=== PATIENT | female | born 1980 | race American Indian/Alaskan Native ===

== ENCOUNTER 2016-09-30 19:52 | Inpatient (IN) | payer OTHER ==
[2016-09-30] MEDS ORDERED: D50W (25GM) IV PRN (20:23)
[2016-09-30] MEDS ORDERED: DULCOLAX PR PRN (20:23)
[2016-09-30] MEDS ORDERED: SENOKOT PO PRN (20:23)
[2016-09-30] MEDS: ZOCOR PO SCH (22:00)
[2016-09-30] MEDS: NOVOLOG SUB-Q SCH (22:15)
[2016-09-30] MEDS: CATAPRES PO SCH (23:52)
[2016-09-30] MEDS: KEPPRA PO SCH (23:53)
[2016-09-30] MEDS: ULTRAM PO PRN (23:54)
[2016-10-01] MEDS: HEPARIN SUB-Q SCH ×4 (00:17→23:12)
[2016-10-01 05:49] LABS: Basophils % (Auto) 1.3 % (0.0-1.8); Eosinophils % (Auto) 12.7 % (0.0-4.3); Hematocrit 25.2 % (30.3-42.9); Hemoglobin 7.6 gm/dl (10.1-14.3); Mean Corpuscular HGB Conc 30 % (30-34); Mean Corpuscular Volume 86 fl (79-97); Platelet Count 327 K/mm3 (140-440); Red Blood Count 2.92 M/mm3 (3.65-5.03); Red Cell Distribution Width 16.5 % (13.2-15.2)
[2016-10-01 05:51] LABS: Mean Corpuscular Hemoglobin 26 pg (28-32)
[2016-10-01 06:13] LABS: Alanine Aminotransferase < 5 units/L (7-56); Albumin 2.6 g/dL (3.9-5); Albumin/Globulin Ratio 0.6 %; Alkaline Phosphatase 110 units/L (35-129); Anion Gap 19 mmol/L; BUN/Creatinine Ratio 5.85; Bilirubin,Total < 0.20 mg/dL (0.1-1.2); Blood Urea Nitrogen 24 mg/dL (7-17); Calcium 8.6 mg/dL (8.4-10.2); Carbon Dioxide 27 mmol/L (22-30); Chloride 94.3 mmol/L (98-107); Glucose 92 mg/dL (65-100); Sodium 136 mmol/L (137-145); Total Protein 6.8 g/dL (6.3-8.2)
[2016-10-01] MEDS: NYSTOP TP SCH ×2 (08:00→22:05)
[2016-10-01] MEDS: BUTT PASTE/LIDOCAINE TP SCH ×2 (08:00→18:39)
[2016-10-01] MEDS: KEPPRA PO SCH ×2 (08:28→23:10)
[2016-10-01] MEDS: ASPIRIN PO SCH (08:28)
[2016-10-01] MEDS: CATAPRES PO SCH ×3 (08:30→23:16)
[2016-10-01] MEDS: PEPCID PO SCH (08:32)
[2016-10-01] MEDS: NOVOLOG SUB-Q SCH ×3 (08:39→17:18)
[2016-10-01] MEDS: ULTRAM PO PRN (08:47)
--- NOTE | 2016-10-01 11:45 | Consultation ---
History of Present Illness - Reason for Consult Consult date: 10/01/16 - History of Present Illness pt was seen and examined--consult dictated Medications and Allergies Allergies Allergy/AdvReac Type Severity Reaction Status Date / Time No Known Allergies Allergy Verified 09/05/16 20:32 Home Medications Medication Instructions Recorded Confirmed Last Taken Type Enoxaparin [Lovenox] 30 mg SQ QDAY 30 Days 09/24/16 09/30/16 Unknown Rx Famotidine [Pepcid] 20 mg PO QDAY tablet 09/24/16 09/30/16 Unknown Rx HYDROcodone/APAP 5-325 [Jet 1 each PO Q6HR PRN #20 tablet 09/24/16 09/30/16 Unknown Rx 5/325] Insulin NPH/Regular [NovoLIN 70/30] 28 unit SUB-Q BIDDIAB units 09/24/16 Unknown Rx QUEtiapine [SEROquel] 50 mg PO BID tablet 09/24/16 09/30/16 Unknown Rx Scopolamine [Transderm-Scop] 1 each TD Q3D patch 09/24/16 09/30/16 Unknown Rx cloNIDine [Catapres] 0.3 mg PO Q8HR tablet 09/24/16 09/30/16 Unknown Rx levETIRAcetam [Keppra TAB] 500 mg PO BID #60 tablet 09/24/16 09/30/16 Unknown Rx Active Meds: Active Medications Acetaminophen (Tylenol) 650 mg PO Q4H PRN PRN Reason: Pain MILD(1-3)/Fever >100.5/RG Aspirin (Aspirin) 325 mg PO QDAY [facility] Last Admin: 10/01/16 08:28 Dose: 325 mg Bisacodyl (Dulcolax) 10 mg VT QDAY PRN PRN Reason: Constipation unrelieved by MOM Clonidine HCl (Catapres) 0.3 mg PO Q8HR [facility] Last Admin: 10/01/16 08:30 Dose: 0.3 mg Dextrose (D50w (25gm)) 50 ml IV PRN PRN PRN Reason: Hypoglycemia Famotidine (Pepcid) 20 mg PO QDAY [facility] Last Admin: 10/01/16 08:32 Dose: 20 mg Heparin Sodium (Porcine) (Heparin) 5,000 unit SUB-Q Q12HR [facility] Last Admin: 10/01/16 10:00 Dose: Not Given Insulin Aspart (Novolog) 0 units SUB-Q ACHS [facility] PRN Reason: Protocol Last Admin: 10/01/16 08:39 Dose: Not Given Insulin Human Isoph/Insulin Regular (Novolin 70/30) 20 unit SUB-Q BIDDIAB [facility] Last Admin: 10/01/16 08:34 Dose: 20 unit Levetiracetam (Keppra) 750 mg PO BID [facility] Last Admin: 10/01/16 08:28 Dose: 750 mg Lidocaine HCl (Butt Paste/Lidocaine) 1 applic TP TID [facility] Last Admin: 10/01/16 08:00 Dose: Not Given Nystatin (Nystop) 1 applic TP BID [facility] Last Admin: 10/01/16 08:00 Dose: Not Given Quetiapine Fumarate (Seroquel) 50 mg PO BID [facility] Last Admin: 10/01/16 08:47 Dose: 50 mg Scopolamine (Transderm-Scop) 1 each TD Q3D [facility] Senna (Senokot) 8.6 mg PO Q12H PRN PRN Reason: Laxative Effect Simvastatin (Zocor) 40 mg PO QHS [facility] Last Admin: 09/30/16 22:00 Dose: 40 mg Tramadol HCl (Ultram) 50 mg PO Q6H PRN PRN Reason: Pain, Moderate (4-6) Last Admin: 10/01/16 08:47 Dose: 50 mg Exam - Constitutional Vitals: Temp Pulse Resp BP Pulse Ox 98.8 F 85 18 128/69 100 10/01/16 08:00 10/01/16 08:30 10/01/16 08:00 10/01/16 08:30 10/01/16 10:00 Results - Labs CBC & Chem 7: 10/01/16 05:15 10/01/16 05:15 Labs: Abnormal lab results 09/30/16 10/01/16 10/01/16 Range/Units 21:10 05:15 05:15 RBC 2.92 L (3.65-5.03) M/mm3 Hgb 7.6 L (10.1-14.3) gm/dl Hct 25.2 L (30.3-42.9) % MCH 26 L (28-32) pg RDW 16.5 H (13.2-15.2) % Lymph % (Auto) 12.6 L (13.4-35.0) % [place] % (Auto) 13.4 H (0.0-7.3) % Eos % (Auto) 12.7 H (0.0-4.3) % [place] # 1.5 H (0.0-0.8) K/mm3 Eos # 1.4 H (0.0-0.4) K/mm3 Sodium 136 L (137-145) mmol/L Chloride 94.3 L (98-107) mmol/L BUN 24 H (7-17) mg/dL Creatinine 4.1 H (0.7-1.2) mg/dL POC Glucose 168 H (70-105) ALT < 5 L (7-56) units/L Albumin 2.6 L (3.9-5) g/dL
--- NOTE | 2016-10-01 12:21 | History and Physical Report ---
History of Present Illness Date: 10/01/16 Referring Facility: [facility] Date of admission: 09/30/16 19:52 Chief Complaint: NTSCI, thoracic cord infarction History of present illness: POST ADMISSION PHYSICIAN EVALUATION ONSET DATE: 09/05/2016 IMPAIRMENT GROUP CODE: 04.112 ETIOLOGIC DIAGNOSIS: NTSCI, thoracic cord infarction STATUS CHANGES SINCE PREADMISSION SCREENING: PAS has been reviewed. In comparison, rectal tube has been removed; will need aggressive bowel program. Pt noted to be drowsy during exam; not on seroquel at home, will wean to off as tolerated. Pt is sitting up in chair and denies any difficulties with initiating therapies. Pt remains with BLE paralysis; continues to be an appropriate candidate for IPR admission. PREVIOUS FUNCTIONAL STATUS: Independent with ADLs, gait, transfers CURRENT FUNCTIONAL STATUS: Supervision for Eating and grooming; modA for UB Dressing; max-totalA for remaining ADLs; HPI 36 y.o. female who presented to [facility] secondary to intractable status epilepticus ; intubated in ED for airway protection (later extubated on 09/15). Acute care course immediately complicated by acute metabolic encephalopathy, GN bacteremia , +E.Faecalis in urine; hypokalemia; left arm cellulitis. Pt later reported acute onset of BLE numbness and paralysis. MRI thoracic and lumbar spine noted to be negative. Repeat Brain MRI on 09/22 showed acute CVA at anterior corpus callosum and left parietal periventricular white matter; also with subacute bilateral parietal lobe infarcts. Pt seen/evaluated by Neurology; likely that acute infarcts and potential thoracic cord infarction due to hypotension, started on IV steroids with no improvement. ECHO obtained during CVA work-up revealed mobile vegetation on permacath wire in right atrium; replaced/resolved on 09/29. Pt continued with paraplegia; now admitted to IRU for aggressive therapies and ongoing medical management. Past History Past Medical History: diabetes, ESRD (recently initiated on HD ), GERD, hypertension, seizures Past Surgical History: Other (dialysis access) Social history: single, other (lives with 8 y.o. daugther; parents present). denies: smoking, alcohol abuse Family history: diabetes, hypertension, stroke Medications and Allergies Allergies Allergy/AdvReac Type Severity Reaction Status Date / Time No Known Allergies Allergy Verified 09/05/16 20:32 Home Medications Medication Instructions Recorded Confirmed Last Taken Type Enoxaparin [Lovenox] 30 mg SQ QDAY 30 Days 09/24/16 09/30/16 Unknown Rx Famotidine [Pepcid] 20 mg PO QDAY tablet 09/24/16 09/30/16 Unknown Rx HYDROcodone/APAP 5-325 [Page 1 each PO Q6HR PRN #20 tablet 09/24/16 09/30/16 Unknown Rx 5/325] Insulin NPH/Regular [NovoLIN 70/30] 28 unit SUB-Q BIDDIAB units 09/24/16 Unknown Rx QUEtiapine [SEROquel] 50 mg PO BID tablet 09/24/16 09/30/16 Unknown Rx Scopolamine [Transderm-Scop] 1 each TD Q3D patch 09/24/16 09/30/16 Unknown Rx cloNIDine [Catapres] 0.3 mg PO Q8HR tablet 09/24/16 09/30/16 Unknown Rx levETIRAcetam [Keppra TAB] 500 mg PO BID #60 tablet 09/24/16 09/30/16 Unknown Rx Active Meds: Active Medications Acetaminophen (Tylenol) 650 mg PO Q4H PRN PRN Reason: Pain MILD(1-3)/Fever >100.5/RG Aspirin (Aspirin) 325 mg PO QDAY [facility] Last Admin: 10/01/16 08:28 Dose: 325 mg Bisacodyl (Dulcolax) 10 mg [place] QDAY PRN PRN Reason: Constipation unrelieved by MOM Clonidine HCl (Catapres) 0.3 mg PO Q8HR [facility] Last Admin: 10/01/16 08:30 Dose: 0.3 mg Dextrose (D50w (25gm)) 50 ml IV PRN PRN PRN Reason: Hypoglycemia Famotidine (Pepcid) 20 mg PO QDAY [facility] Last Admin: 10/01/16 08:32 Dose: 20 mg Heparin Sodium (Porcine) (Heparin) 5,000 unit SUB-Q Q12HR [facility] Last Admin: 10/01/16 10:00 Dose: Not Given Insulin Aspart (Novolog) 0 units SUB-Q ACHS [facility] PRN Reason: Protocol Last Admin: 10/01/16 08:39 Dose: Not Given Insulin Human Isoph/Insulin Regular (Novolin 70/30) 20 unit SUB-Q BIDDIAB [facility] Last Admin: 10/01/16 08:34 Dose: 20 unit Levetiracetam (Keppra) 750 mg PO BID [facility] Last Admin: 10/01/16 08:28 Dose: 750 mg Lidocaine HCl (Butt Paste/Lidocaine) 1 applic TP TID [facility] Last Admin: 10/01/16 08:00 Dose: Not Given Nystatin (Nystop) 1 applic TP BID [facility] Last Admin: 10/01/16 08:00 Dose: Not Given Quetiapine Fumarate (Seroquel) 50 mg PO BID [facility] Last Admin: 10/01/16 08:47 Dose: 50 mg Scopolamine (Transderm-Scop) 1 each TD Q3D [facility] Senna (Senokot) 8.6 mg PO Q12H PRN PRN Reason: Laxative Effect Simvastatin (Zocor) 40 mg PO QHS [facility] Last Admin: 09/30/16 22:00 Dose: 40 mg Tramadol HCl (Ultram) 50 mg PO Q6H PRN PRN Reason: Pain, Moderate (4-6) Last Admin: 10/01/16 08:47 Dose: 50 mg Review of Systems All systems: negative Ears, nose, mouth and throat: no headache Cardiovascular: no chest pain, no lightheadedness Respiratory: no cough Gastrointestinal: no nausea, no vomiting Neurological: weakness Psychiatric: sleep disturbances Exam - Constitutional Vitals: Vital Signs - 12hr 10/01/16 10/01/16 10/01/16 08:00 08:30 10:00 Temperature 98.8 F Pulse Rate 85 Pulse Rate [ 85 Left Brachial] Respiratory 18 Rate Blood Pressure 128/69 Blood Pressure 128/69 [Left Arm] O2 Sat by Pulse 100 100 Oximetry General appearance: no acute distress, other (sitting up in ) - EENT Eyes: EOM intact ENT: hearing intact - Neck Neck: supple, normal ROM - Respiratory Respiratory effort: normal Respiratory: bilateral: CTA - Cardiovascular Rhythm: regular Heart Sounds: Present: S1 & S2 - Extremities Extremities: No edema - Gastrointestinal General gastrointestinal: Present: soft, non-tender, non-distended, normal bowel sounds - Integumentary Integumentary: Present: clear - Musculoskeletal Musculoskeletal: other (4/5 BUE; no movement at BLE) - Neurologic Neurologic: CNII-XII intact, other (no sensation below T4) - Psychiatric Psychiatric: appropriate mood/affect, intact judgment & insight, memory intact, cooperative - Labs CBC & Chem 7: 10/01/16 05:15 10/01/16 05:15 Labs: Laboratory Results - last 72 hr 09/30/16 10/01/16 10/01/16 21:10 05:15 05:15 WBC 11.0 RBC 2.92 L Hgb 7.6 L Hct 25.2 L MCV 86 MCH 26 L MCHC 30 RDW 16.5 H Plt Count 327 Lymph % (Auto) 12.6 L [place] % (Auto) 13.4 H Eos % (Auto) 12.7 H Baso % (Auto) 1.3 Lymph # 1.4 [place] # 1.5 H Eos # 1.4 H Baso # 0.1 Seg Neutrophils % 60.0 Seg Neutrophils # 6.6 Sodium 136 L Potassium 4.0 Chloride 94.3 L Carbon Dioxide 27 Anion Gap 19 BUN 24 H Creatinine 4.1 H Estimated GFR 15 BUN/Creatinine Ratio 5.85 Glucose 92 POC Glucose 168 H Calcium 8.6 Total Bilirubin < 0.20 AST 12 ALT < 5 L Alkaline Phosphatase 110 Total Protein 6.8 Albumin 2.6 L Albumin/Globulin Ratio 0.6 10/01/16 06:26 WBC RBC Hgb Hct MCV MCH MCHC RDW Plt Count Lymph % (Auto) [place] % (Auto) Eos % (Auto) Baso % (Auto) Lymph # [place] # Eos # Baso # Seg Neutrophils % Seg Neutrophils # Sodium Potassium Chloride Carbon Dioxide Anion Gap BUN Creatinine Estimated GFR BUN/Creatinine Ratio Glucose POC Glucose 85 Calcium Total Bilirubin AST ALT Alkaline Phosphatase Total Protein Albumin Albumin/Globulin Ratio Assessment and Plan Assessment and plan: 36 y.o. female s/p intractable status epilepticus on presentation. Course complicated by acute respiratory failure requiring intubation, acute metabolic encephalopathy, GN bacteremia, +E.Faecalis in urine, hypokalemia, left arm cellulitis. Pt later noted to have acute onset of BLE numbness and paralysis, thought to be secondary to thoracic cord infarction; acute CVA at anterior corpus callosum and left parietal periventricular white matter; subacute bilateral parietal lobe infarcts; mobile vegetation on permacath wire in right atrium; permacath replaced/resolved on 09/29. The patient is currently medically stable, however, requires ongoing medical management. Pt is appropriate for inpatient rehabilitation admission and is thought to be able to tolerate at least 3 hours of therapy a day, 5 days a week including 1 hour of physical therapy, 1 hour of occupational therapy, and 1 hour of speech therapy. Patient is able to understand and follow basic directions and has attainable rehab goals. Potential barriers/complications include falls, sacral decubitus, DVT, PE, autonomic dysreflexia, UTI, extension/recurrent CVA, recurrent seizures, contractures, hypotension, hypoglycemia. Plan 1. Rehabilitation- Pt will undergo multidisciplinary/integrative rehab PT/OT/ VAT CLEANER, Nursing. Areas to be addressed include, but are not limited to PT for strengthening, transfer training, ROM, endurance, balance; OT for ADLs, household tasks, adaptive equipment; VAT CLEANER for cognitive evaluation; Nursing for carryover of therapies, pain control, education, skin integrity, medication management, bowel/bladder management; Nutrition as needed; director dental services for discharge planning and equipment needs. Potential interventions include appropriate assistive device or adaptive equipment. Expected overall level of functional improvement by discharge is Memo to CGA for ADLs at wheelchair level ; Memo for sliding board transfers and wheelchair mobility. Pt will tentatively be discharged home with outpatient PT/OT. Estimated length of stay is 2-3 weeks. 2. thoracic cord infarction- will need close monitoring and management of bowel /bladder; bladder scans Q6hr, straight cath for >350cc; likely will require dulcolax suppositories QOD; Q2 hour toileting while awake; pressure relief; Q2 hour turning schedule when in bed 3. acute CVA at anterior corpus callosum and left parietal periventricular white matter; subacute bilateral parietal lobe infarcts- ASA and statin 4. seizure disorder- continue keppra; seizure precautions 5. HTN- low BP noted; reduce clonidine to 0.2mg; follow 6. DM- continue current regimen; previously on 40U 70/30, reduced to 20U; follow and adjust as needed 7. ESRD- on HD, MWF; Nephrology following 8. Anemia secondary to ESRD- follow 9. DVT px- heparin - Patient Problems (1) Spinal cord infarction Current Visit: No Status: Acute (2) CVA (cerebral vascular accident) Current Visit: Yes Status: Acute Qualifiers: Precerebral and cerebral artery: P Laterality of affected vessel: L (3) Seizure Current Visit: No Status: Acute (4) Diabetes Current Visit: Yes Status: Acute Qualifiers: Diabetes mellitus type: type 2 Diabetes mellitus complication status: with hyperglycemia Diabetes mellitus complication detail: D Diabetic retinopathy severity: D Proliferative retinopathy type: P Diabetes mellitus macular edema: D Diabetes mellitus fdc insulin use: with fdc use Laterality: L Chronic kidney disease stage: C Qualified Code(s): E11.65 - Type 2 diabetes mellitus with hyperglycemia; Z79.4 - long-term (current) use of insulin (5) HTN (hypertension) Current Visit: No Status: Acute Qualifiers: Hypertension type: essential hypertension Qualified Code(s): I10 - Essential (primary) hypertension (6) ESRD on hemodialysis Current Visit: No Status: Acute (7) Anemia in ESRD (end-stage renal disease) Current Visit: No Status: Chronic
[2016-10-01] MEDS: ZOCOR PO SCH (23:11)
[2016-10-01] MEDS: TRANSDERM-SCOP TD SCH (23:12)
[2016-10-02] MEDS: NOVOLOG SUB-Q SCH ×5 (01:27→20:50)
[2016-10-02] MEDS: CATAPRES PO SCH ×4 (06:27→22:15)
[2016-10-02] MEDS: BUTT PASTE/LIDOCAINE TP SCH ×4 (06:29→20:59)
[2016-10-02] MEDS: NYSTOP TP SCH ×3 (07:15→20:59)
[2016-10-02] MEDS: ASPIRIN PO SCH (08:34)
[2016-10-02] MEDS: TYLENOL PO PRN (08:36)
[2016-10-02] MEDS: PEPCID PO SCH (08:38)
[2016-10-02] MEDS: KEPPRA PO SCH ×3 (08:38→22:15)
--- NOTE | 2016-10-02 09:56 | Consultation ---
RENAL CONSULT REASON FOR CONSULTATION: Renal failure. HISTORY OF PRESENT ILLNESS: This 36-year-old -[place] female with end-stage renal disease, hypertension, diabetes, was admitted to the Rehab Unit. The patient gets hemodialysis on Wednesday, Wednesday, and Wednesday via right side of the neck tunneled catheter. The patient was recently admitted to [facility] with diabetic ketoacidosis with altered mental status and seizure on 09/05/2016. She was orally intubated on ventilator. Hospital records were reviewed. On 09/29/2016 the patient had exchange of tunneled dialysis right internal jugular venous catheter by Dr. Hanson. PAST MEDICAL HISTORY: Hypertension, end-stage renal disease, insulin-dependent diabetes. PERSONAL HISTORY: Denies smoking, alcohol, or drug abuse. FAMILY HISTORY: No family history of kidney failure. ALLERGIES: No known allergies. MEDICATIONS: Aspirin 325 mg once a day, insulin, Keppra 750 mg twice a day, Seroquel 25 mg p.o. b.i.d., Zocor 40 mg once a day, tramadol p.r.n. REVIEW OF SYSTEMS: The patient denies headache or dizziness. Denies chest pain or shortness of breath. Denies abdomen pain, nausea, or vomiting. Appetite is getting better. Denies GI bleeding. Denies swelling of the legs. Other review of systems negative. PHYSICAL EXAMINATION: GENERAL: The patient is alert and oriented. VITAL SIGNS: Blood pressure 128/69, pulse 100, afebrile. Lips noncyanotic. NECK: No JVD. No thyroid enlargement. LUNGS: Diminished breath sounds in bases. HEART: S1, S2 regular. No pericardial rub. 2/6 systolic murmur along the left sternal border. ABDOMEN: Soft, bowel sounds present, nontender. No liver or spleen palpable. EXTREMITIES: 1+ edema. The patient has right internal jugular tunneled catheter in place. LABORATORY DATA: WBC 11.0, hemoglobin 7.6, hematocrit 25.2, platelets 327. Sodium 136, potassium 4.0, chloride 94, CO2 of 27, BUN 24, creatinine 4.1, glucose 85, albumin 2.6. ASSESSMENT AND PLAN: 1. End-stage renal disease. The patient to get hemodialysis on Wednesday, Wednesday, and Wednesday. 2. Anemia in end-stage renal disease, maintained on Epogen, consider packed RBC if hemoglobin drops further, check iron studies and give Venofer as per protocol. 3. Hypoalbuminemia, encouraged to increase dietary protein intake and take protein supplements. 4. Hypertension. 5. Diabetes, status post DKA. 6. History of seizure disorder, on Keppra. Thank you for the consultation. JOB# [id number] K/NTS
--- NOTE | 2016-10-02 10:07 | Progress Note ---
Assessment and Plan 36 y.o. female s/p intractable status epilepticus on presentation. Course complicated by acute respiratory failure requiring intubation, acute metabolic encephalopathy, GN bacteremia, +E.Faecalis in urine, hypokalemia, left arm cellulitis. Pt later noted to have acute onset of BLE numbness and paralysis, thought to be secondary to thoracic cord infarction; acute CVA at anterior corpus callosum and left parietal periventricular white matter; subacute bilateral parietal lobe infarcts; mobile vegetation on permacath wire in right atrium; permacath replaced/resolved on 09/29 - thoracic cord infarction- bowel/bladder management; bladder scans Q4hr, straight cath for >350cc; dulcolax suppositories QHS; Q2 hour toileting while awake; pressure relief; Q2 hour turning schedule when in bed; float heels when in bed - possible UTI- F/U urine culture; started on levaquin Q48hr - acute CVA at anterior corpus callosum and left parietal periventricular white matter; subacute bilateral parietal lobe infarcts- ASA, statin - seizure disorder- keppra; seizure precautions - HTN- follow and reduce clonidine as needed - DM- continue 70/30 at 20U BID; follow and adjust as needed - ESRD- on HD, MWF; Nephrology following - DVT px- heparin - Patient Problems (1) Spinal cord infarction Current Visit: No Status: Acute (2) CVA (cerebral vascular accident) Current Visit: Yes Status: Acute Qualifiers: CVA mechanism: C Precerebral and cerebral artery: P Laterality of affected vessel: L (3) Seizure Current Visit: No Status: Acute (4) Diabetes Current Visit: Yes Status: Acute Qualifiers: Diabetes mellitus type: type 2 Diabetes mellitus complication status: with hyperglycemia Diabetes mellitus complication detail: D Diabetic retinopathy severity: D Proliferative retinopathy type: P Diabetes mellitus macular edema: D Diabetes mellitus prison insulin use: with prison use Laterality: L Chronic kidney disease stage: C Qualified Code(s): E11.65 - Type 2 diabetes mellitus with hyperglycemia; Z79.4 - terminal press operator (current) use of insulin (5) HTN (hypertension) Current Visit: No Status: Acute Qualifiers: Hypertension type: essential hypertension Qualified Code(s): I10 - Essential (primary) hypertension (6) ESRD on hemodialysis Current Visit: No Status: Acute Subjective Date of service: 10/02/16 Principal diagnosis: thoracic cord infarction Interval history: Pt seen in room this AM, F/U IPR course, s/p thoracic cord infarction and acute CVAs. Pt without any complaints on this AM. However, noted to have a fever of 100.2 Objective - Constitutional Vitals: Vital Signs - 12hr 10/01/16 10/02/16 10/02/16 23:16 06:27 07:30 Temperature 100.2 F H Pulse Rate 82 101 H Pulse Rate [ 95 H Left Brachial] Respiratory 20 Rate Blood Pressure 123/68 115/64 Blood Pressure 121/67 [Left Arm] O2 Sat by Pulse 99 Oximetry General appearance: Present: no acute distress, obese - EENT Eyes: EOM intact ENT: hearing intact - Neck Neck: supple, normal ROM - Respiratory Respiratory effort: normal Respiratory: bilateral: CTA - Cardiovascular Rhythm: regular Heart Sounds: Present: S1 & S2 Extremities: No edema Extremity abnormal: other (PROM performed at [facility]; no spasticity/tone noted; no active movement in [facility]) - Gastrointestinal General gastrointestinal: Present: soft, non-tender, non-distended, normal bowel sounds - Neurologic Neurologic: CNII-XII intact, other (no sensation at [facility]) - Psychiatric Psychiatric: cooperative (flat affect) - Allied health notes Allied health notes reviewed: PT (orthostatic on tilt table; asymptomatic at the time), ST (d/c'd from CONTINUOUS DRIER OPERATOR; eval only), OT (s/u to dependent for ADLs) - Labs CBC & Chem 7: 10/01/16 05:15 10/01/16 05:15 Labs: Abnormal lab results 10/01/16 10/01/16 10/02/16 Range/Units 11:33 16:56 06:48 POC Glucose 112 H 116 H 173 H (70-105)
--- NOTE | 2016-10-02 10:07 | IRU Plan of Care ---
Interdisciplinary Plan of Care - IP IRU INTERDISCIPLINARY PLAN: [facility] Inpatient Rehab Unit Plan of Care IRU Interdisciplinary Care Plan Start: 09/30/16 20: 13 Freq: Admission then PRN Status: Active Document 10/02/16 08:53 DB (Rec: 10/02/16 08:58 DB [id number]) Interdisciplinary Problem List Interdisciplinary Problem List Interdisciplinary Problem List Impaired Bathing/Grooming Query Text:Answers will Trigger Problems Impaired Dressing and Outcomes on Worklist. Impaired Mobility Impaired Transfers Impaired Bladder/Bowel Management Impaired Toileting Impaired Nutrition Pain Management Knowledge Deficits Impaired Safety Medications Education Diabetes Education Impaired Oxygenation IRU Interdisciplinary Care Plan Therapy Services Therapy Services Will Include: Physical Therapy Query Text:Patient will be seen for a Occupational Therapy minimum of 3 hours of daily therapy 5 out of 7 days a week. Therapy intensity may be adjusted within a 7 consecutive day period to effectively serve the individual needs of the patient. Treatment Frequency/Intensity/Duration Treatment Frequency 5 days per week Treatment Intensity 1.5 hours per discipline (PT/OT ) daily Treatment Duration 14-21 days Problem Area: Eating/Swallowing Eating/Swallowing Outcomes Eating/Swallowing Interventions Problem Area: Bathing/Grooming Bathing/Grooming Outcomes Improve Rogers w/ Grooming Improve Rogers w/ Bathing Bathing/Grooming Interventions ADL Training Use of Assistive Devices Therapeutic Exercise Therapeutic Activity Neuromuscular Re-Education Balance Work Activity Tolerance Work Patient/Caregiver Education Problem Area: Dressing Dressing Outcomes Improve Rogers w/ UB Dressing Improve Rogers w/ LB Dressing Dressing Interventions ADL Training Use of Assistive Devices Neuromuscular Re-Education Therapeutic Exercise Balance Work Patient/Caregiver Education Problem Area: Mobility Mobility Outcomes Improve Rogers w/ Bed Mobility Improve Rogers w/ Ambulation Improve Rogers w/ Stairs /Curb Improve Rogers w/ Wheelchair Mobility Interventions Therapeutic Exercise Neuromuscular Re-Ed. Modalities Use of Assistive Devices Patient/Caregiver Education Bed Mobility Work Gait Training W/C Mobility Work Problem Area: Transfers Transfers Outcomes Improve Rogers w/ Bed Transfers Improve Rogers w/ Toilet Transfers Improve Rogers w/ Tub/ Shower Transfers Improve Rogers w/ Car Transfers Transfers Interventions Transfer Training Therapeutic Exercise Neuromuscular Re-Education Modalities Use of Assistive Devices Patient/Caregiver Education Problem Area: Bowel/Bladder Managment Bowel/Bladder Outcomes Continent of Bladder Continent of Bowel Bowel/Bladder Interventions Bladder Training Program Bowel Training Program Use of Assistive Devices Medication Education Patient/Caregiver Education Problem Area: Toileting Toileting Outcomes Improve Rogers w/ Toileting Toileting Interventions ADL Training Balance Work Use of Assistive Devices Patient/Caregiver Education Problem Area: Nutrition Nutrition Outcomes Understand and Comply w/ Diet Improve/Maintain Oral Intake Nutrition Interventions Nutritional Counseling Monitor Nutrient Intake Patient/Caregiver Education Problem Area: Comprehension Comprehension Outcomes Comprehension Interventions Problem Area: Expression Expression Outcomes Expression Interventions Problem Area: Problem Solving Problem Solving Outcomes Problem Solving Interventions Problem Area: Memory Memory Outcomes Memory Interventions Problem Area: Pain Management Pain Management Outcomes Demonstrate/Verbalize Pain Strategies Pain Management Interventions Medication Management Stress Management Use of Devices/Modalities ( TENS, hot pack, cold pack, etc .) Patient/Caregiver Education Problem Area: Knowledge Deficits Knowledge Deficits Outcomes Demonstrate Ability to Manage Blood Glucose Demonstrate Understanding of Anticoagulation Verbalize Precautions Knowledge Deficits Interventions Medication Use Education Disease Management Education Safety Education Problem Area: Skin/Tissue Integrity Skin/Tissue Integrity Outcomes Exhibit Healing of Wound/ Incision Demonstrate Understanding of Pressure Relief Skin/Tissue Integrity Interventions Skin/Wound Care Pressure Relief Instruction Positioning/Turning Problem Area: Social Interaction Social Interaction Outcomes Social Interaction Interventions Problem Area: Adjustment to Disability Adjustment to Disability Outcomes Adjustment to Disability Interventions Problem Area: Discharge Concerns Discharge Concerns Outcomes Discharge Home w/ Necessary Equipment Have Home Health/Outpatient Services Discharge Concerns Interventions Discharge Planning Family/Caregiver Conference Family/Caregiver Training Problem Area: Community Reintegration Community Reintegration Outcomes Demonstrate Understanding of Community Resources Community Reintegration Interventions Provide Community Resources Problem Area: Home Management Home Management Outcomes Home Management Interventions Problem Area: Safety Safety Outcomes Provide Safe Environment Perform Selfcare Safely Demonstrate Good Safety w/ Transfers/Mobility Safety Interventions Identify Fall Risk Mobile Pt. to Environment Reduce Environmental Hazards Problem Area: Medication Education Medication Education Outcomes Patient/Caregiver will Verbalize Understanding of Medications Medication Education Interventions Explain Administration/Side Effects/Interactions Problem Area: Diabetes Education Diabetes Education Outcomes Demonstrate Knowledge of Resources Availlable in Diabetic Ed. Folder Diabetes Education Interventions Give Pt. Diabetes Education Folder Discuss Pathophysiology of Diabetes Problem Area: Oxygenation Oxygenation Outcomes Maintain Adequate Oxygenation Oxygenation Interventions Assess Respiratory Status Encourage Coughing and Deep Breathing Elevate Head of Bed Problem Area: Cardiovascular Cardiovascular Outcomes Cardiovascular Interventions Physician Only Medical Prognosis and Rehabilitation Patient demonstrates good Potential (Completed by Physician) rehab potential. Medical Prognosis: Good This plan of care has been developed based on the findings from the pre- admission assessment, post admission physician evaluation, information gathered from the assessments from all therapy disciplines and other pertinent clinicians. The plan of care has been reviewed and discussed in collaboration with the interdisciplinary team. The plan of care will be reviewed and updated at least weekly. 36 y.o. female s/p intractable status epilepticus on presentation; course complicated by acute respiratory failure requiring intubation, acute metabolic encephalopathy, GN bacteremia, +E.Faecalis in urine, hypokalemia, left arm cellulitis. Pt later noted to have acute onset of BLE numbness and paralysis, thought to be secondary to thoracic cord infarction; acute CVA at anterior corpus callosum and left parietal periventricular white matter; subacute bilateral parietal lobe infarcts; mobile vegetation on permacath wire in right atrium; permacath replaced/resolved on 09/29. The patient remains at risk for falls, sacral decubitus, DVT, PE, autonomic dysreflexia, UTI, extension/ recurrent CVA, recurrent seizures, contractures, hypotension, hypoglycemia. Will need ongoing bowel and bladder management; likely currently with UTI, initiated on levaquin; QHS dulcolax to ensure adequate bowel movement; pressure relief to prevent development of sacral decubitus; follow BP, DM; ongoing HD, MWF; follow H/H. Pt with reported orthostasis with attempted standing/tilt table; add TEDs. Pt is tolerating therapies to date; remains an appropriate candidate for IRU admission.
[2016-10-02] MEDS: HEPARIN SUB-Q SCH ×3 (10:26→22:15)
[2016-10-02] MEDS: ULTRAM PO PRN ×2 (11:52→20:43)
[2016-10-02 12:08] LABS: Bacteria,Urine 3+ /HPF (Negative); Bilirubin,Urine NEG (Negative); Blood,Urine MOD (Negative); Ketones,Urine NEG (Negative); Leukocyte Esterase,Urine LG (Negative); Nitrite,Urine NEG (Negative); Urobilinogen,Urine < 2.0 mg/dL (<2.0)
[2016-10-02 12:24] LABS: WBC,Urine > 182.0 /HPF (0.0-6.0)
--- NOTE | 2016-10-02 13:51 | Progress Note ---
Assessment and Plan Assessment: * End stage renal disease * Status post Hyperglycemic hyperosmolar nonketotic coma * Status post hypoxemic respiratory failure * Catheter associated bacteremia * Permcath w/ mobile vegetation * Thoracic spinal cord infarction * UTI - enterococcus * Seizure * Anemia secondary to ESRD Plan: * Patient is scheduled for hemodialysis today . * Continue MWF schedule * Patient currently off antibiotics * Continue physical therapy * Dose medications for renal function * Epogen with dialysis * Nutrition per primary team * Monitor patient's hemoglobin and transfuse as needed Subjective Date of service: 10/02/16 Interval history: Patient is comfortable. Just completed her physical therapy. Denies any shortness of breath. No nausea vomiting or diarrhea Objective - Vital Signs Vital signs: Vital Signs - 12hr 10/02/16 10/02/16 06:27 07:30 Temperature 100.2 F H Pulse Rate 101 H Pulse Rate [ 95 H Left Brachial] Respiratory 20 Rate Blood Pressure 115/64 Blood Pressure 121/67 [Left Arm] O2 Sat by Pulse 99 Oximetry - General Appearance General appearance: well-developed, well-nourished, appears stated age EENT: PERRL, mucous membranes moist Neck: no JVD, no thyromegaly, no carotid bruit, supple, other (right IJ PermCath in place) Respiratory: Present: Clear to Ascultation Gastrointestinal: normal, normoactive bowel sounds Integumentary: no rash - Lab 10/01/16 05:15 10/01/16 05:15 Most recent lab results Calcium 8.6 mg/dL (8.4-10.2) 10/01/16 05:15
[2016-10-02] MEDS: LEVAQUIN PO SCH (15:00)
[2016-10-02] MEDS ORDERED: NACL 0.9% 100 ML IV PRN (15:13)
[2016-10-02] MEDS ORDERED: NACL 0.9 (PRIMING MACHINE ONLY DIALYSIS) MC ONE (17:48)
[2016-10-02] MEDS: PROCRIT IV PRN (19:15)
[2016-10-02] MEDS: HEPARIN IV PRN (19:15)
[2016-10-02] MEDS: ZOCOR PO SCH (20:42)
[2016-10-02] MEDS: DULCOLAX PR SCH (20:58)
[2016-10-03] MEDS: ULTRAM PO PRN ×2 (07:48→18:21)
[2016-10-03] MEDS: PEPCID PO SCH (07:50)
[2016-10-03] MEDS: NOVOLOG SUB-Q SCH ×4 (07:51→22:30)
[2016-10-03] MEDS: ASPIRIN PO SCH (07:51)
[2016-10-03] MEDS: KEPPRA PO SCH ×2 (07:51→21:59)
--- NOTE | 2016-10-03 09:11 | Progress Note ---
Assessment and Plan Assessment: * End stage renal disease * Status post Hyperglycemic hyperosmolar nonketotic coma * Status post hypoxemic respiratory failure * Catheter associated bacteremia * Permcath w/ mobile vegetation * Thoracic spinal cord infarction * UTI - enterococcus * Seizure * Anemia secondary to ESRD Plan: * Uneventful hemodialysis yesterday . * Continue MWF schedule * Her PermCath was exchanged on 09/29/2016 * Patient currently off antibiotics * Continue physical therapy * Dose medications for renal function * Epogen with dialysis * Nutrition per primary team * Monitor patient's hemoglobin and transfuse as needed Subjective Date of service: 10/03/16 Principal diagnosis: thoracic cord infarction Interval history: Patient is comfortable this morning. Denies any shortness of breath. No nausea vomiting or diarrhea Objective - Vital Signs Vital signs: Vital Signs - 12hr 10/02/16 10/02/16 10/02/16 21:43 22:00 22:15 Pulse Rate 98 H Respiratory 18 18 Rate Respiratory 18 Rate [Bilateral Posterior Back ] Respiratory 18 Rate [ Generalized] Blood Pressure 144/76 O2 Sat by Pulse 100 Oximetry - General Appearance General appearance: well-developed, well-nourished, appears stated age EENT: PERRL, mucous membranes moist Neck: no JVD, no thyromegaly, no carotid bruit, supple, other (right IJ PermCath in place) Respiratory: Present: Clear to Ascultation Cardiology: regular, normal heart rate Gastrointestinal: normal, normoactive bowel sounds Integumentary: no rash, other - Lab 10/01/16 05:15 10/01/16 05:15 Most recent lab results Calcium 8.6 mg/dL (8.4-10.2) 10/01/16 05:15
[2016-10-03 09:13] LABS: Basophils % (Auto) 1.4 % (0.0-1.8); Eosinophils % (Auto) 4.6 % (0.0-4.3); Mean Corpuscular HGB Conc 29 % (30-34); Mean Corpuscular Volume 87 fl (79-97); Platelet Count 348 K/mm3 (140-440); Red Blood Count 2.97 M/mm3 (3.65-5.03); White Blood Count 11.2 K/mm3 (4.5-11.0)
[2016-10-03 09:19] LABS: Hematocrit 25.7 % (30.3-42.9); Hemoglobin 7.6 gm/dl (10.1-14.3); Mean Corpuscular Hemoglobin 26 pg (28-32)
[2016-10-03 09:35] LABS: BUN/Creatinine Ratio 5.33; Calcium 8.5 mg/dL (8.4-10.2); Chloride 97.1 mmol/L (98-107); Potassium 4.1 mmol/L (3.6-5.0)
[2016-10-03] MEDS: HEPARIN SUB-Q SCH ×2 (10:49→23:00)
[2016-10-03] MEDS: BUTT PASTE/LIDOCAINE TP SCH ×3 (10:49→22:30)
[2016-10-03] MEDS: NYSTOP TP SCH ×2 (10:50→22:32)
[2016-10-03] MEDS: CATAPRES PO SCH ×2 (14:51→22:03)
[2016-10-03] MEDS: ZOCOR PO SCH (22:00)
[2016-10-03] MEDS: TRANSDERM-SCOP TD SCH (22:01)
[2016-10-03] MEDS: DULCOLAX PR SCH (22:02)
[2016-10-04] MEDS: CATAPRES PO SCH ×4 (04:21→19:35)
[2016-10-04] MEDS: ASPIRIN PO SCH (08:22)
[2016-10-04] MEDS: PEPCID PO SCH (08:22)
[2016-10-04] MEDS: KEPPRA PO SCH ×2 (08:22→22:57)
[2016-10-04] MEDS: ULTRAM PO PRN ×3 (08:22→19:34)
[2016-10-04] MEDS: HEPARIN SUB-Q SCH ×3 (08:23→21:00)
[2016-10-04] MEDS: NOVOLOG SUB-Q SCH ×4 (08:29→22:59)
[2016-10-04] MEDS: BUTT PASTE/LIDOCAINE TP SCH ×3 (08:53→22:59)
[2016-10-04] MEDS: NYSTOP TP SCH ×2 (08:55→23:07)
--- NOTE | 2016-10-04 12:22 | Progress Note ---
Assessment and Plan Assessment: * End stage renal disease * Status post Hyperglycemic hyperosmolar nonketotic coma * Status post hypoxemic respiratory failure * Catheter associated bacteremia * Permcath w/ mobile vegetation * Thoracic spinal cord infarction * UTI - enterococcus * Seizure * Anemia secondary to ESRD Plan: * Continue MWF schedule * Her PermCath was exchanged on 09/29/2016 * Patient currently off antibiotics * Continue physical therapy * Dose medications for renal function * Epogen with dialysis * Nutrition per primary team * Monitor patient's hemoglobin and transfuse as needed Subjective Date of service: 10/04/16 Principal diagnosis: thoracic cord infarction Interval history: Patient is comfortable this morning. Denies any nausea vomiting or diarrhea Objective - Vital Signs Vital signs: Vital Signs - 12hr 10/04/16 10/04/16 04:21 10:00 Pulse Rate 82 Blood Pressure 144/66 O2 Sat by Pulse 96 Oximetry - General Appearance General appearance: well-developed, well-nourished, appears stated age EENT: PERRL, mucous membranes moist Neck: no JVD, no thyromegaly, no carotid bruit, supple, other (right IJ PermCath in place) Respiratory: Present: Clear to Ascultation Cardiology: regular, normal heart rate Gastrointestinal: normal, normoactive bowel sounds Integumentary: no rash, other (no edema) - Lab 10/03/16 08:44 10/03/16 08:44 Most recent lab results Calcium 8.5 mg/dL (8.4-10.2) 10/03/16 08:44
[2016-10-04] MEDS: LEVAQUIN PO SCH (14:03)
[2016-10-04] MEDS: ZOCOR PO SCH (22:57)
[2016-10-04] MEDS: DULCOLAX PR SCH (22:58)
[2016-10-05] MEDS: CATAPRES PO SCH ×3 (04:00→21:59)
[2016-10-05 07:20] LABS: Hemoglobin 7.1 gm/dl (10.1-14.3); Mean Corpuscular HGB Conc 29 % (30-34); Mean Corpuscular Hemoglobin 26 pg (28-32); Mean Corpuscular Volume 89 fl (79-97); Platelet Count 360 K/mm3 (140-440); Red Blood Count 2.71 M/mm3 (3.65-5.03); Red Cell Distribution Width 16.9 % (13.2-15.2); White Blood Count 12.2 K/mm3 (4.5-11.0)
[2016-10-05 07:38] LABS: BUN/Creatinine Ratio 5.13; Calcium 8.6 mg/dL (8.4-10.2); Potassium 4.4 mmol/L (3.6-5.0)
[2016-10-05] MEDS: BUTT PASTE/LIDOCAINE TP SCH ×3 (08:26→22:01)
[2016-10-05] MEDS: NYSTOP TP SCH (08:45)
--- NOTE | 2016-10-05 09:22 | Progress Note ---
Assessment and Plan Assessment: * End stage renal disease * Status post Hyperglycemic hyperosmolar nonketotic coma * Status post hypoxemic respiratory failure * Catheter associated bacteremia * Permcath w/ mobile vegetation --PermCath was exchanged on 09/29/2016 * Thoracic spinal cord infarction * Seizure * Anemia secondary to ESRD Plan: * Continue MWF schedule * Abx per primary team - Levaquin for possible UTI * Dose medications for renal function * Epogen with dialysis * Monitor patient's hemoglobin and transfuse as needed Subjective Date of service: 10/05/16 Principal diagnosis: thoracic cord infarction Interval history: Patient seen on dialysis. She has no complaints. Objective - Vital Signs Vital signs: Vital Signs - 12hr 10/04/16 10/05/16 10/05/16 22:00 04:00 07:51 Temperature Pulse Rate 88 Pulse Rate [ Left Brachial] Respiratory Rate Blood Pressure 114/58 Blood Pressure [Left Arm] O2 Sat by Pulse 100 100 Oximetry 10/05/16 08:00 Temperature 98.7 F Pulse Rate Pulse Rate [ 84 Left Brachial] Respiratory 20 Rate Blood Pressure Blood Pressure 121/69 [Left Arm] O2 Sat by Pulse 99 Oximetry - General Appearance General appearance: well-developed, well-nourished EENT: ATNC Respiratory: Present: Clear to Ascultation Cardiology: regular, S1S2 Gastrointestinal: normal, no tenderness, no distended Integumentary: no rash Musculoskeletal: other (no edema) Psychiatric: cooperative - Lab 10/05/16 06:39 10/05/16 06:39 Most recent lab results Calcium 8.6 mg/dL (8.4-10.2) 10/05/16 06:39
[2016-10-05] MEDS: HEPARIN SUB-Q SCH ×2 (10:24→23:12)
[2016-10-05] MEDS: PEPCID PO SCH (10:24)
[2016-10-05] MEDS: ASPIRIN PO SCH (10:24)
[2016-10-05] MEDS: KEPPRA PO SCH ×2 (10:24→21:56)
[2016-10-05] MEDS: NOVOLOG SUB-Q SCH ×4 (10:25→22:02)
[2016-10-05] MEDS: ULTRAM PO PRN ×2 (11:43→21:57)
--- NOTE | 2016-10-05 12:50 | Progress Note ---
Assessment and Plan 36 y.o. female s/p intractable status epilepticus on presentation; s/p acute respiratory failure requiring intubation, acute metabolic encephalopathy, GN bacteremia, +E.Faecalis in urine, hypokalemia, left arm cellulitis. Pt later noted to have acute CVA at anterior corpus callosum and left parietal periventricular white matter, subacute bilateral parietal lobe infarcts, and acute onset of BLE numbness and paralysis thought to be secondary to thoracic cord infarction from hypotension; also with mobile vegetation on permacath wire in right atrium; permacath replaced/resolved on 09/29 - thoracic cord infarction- bowel/bladder management; bladder scans Q4hr, straight cath for >350cc; dulcolax suppositories QOHS; Q2 hour toileting while awake; pressure relief; Q2 hour turning schedule when in bed; float heels when in bed; both pt and nurse educated on need for appropriate turning schedule, recording of bladder scans, bowel program on Bedside commode - wound care- breakdown present on admission that has progressed due to immobility and moisture; rectal tube was discontinued on day2 of course; wound care nurse following; recommended having diaper off when in bed to limit moisture - possible UTI- urine culture likely contaminated, no further fever; continue course of levaquin Q48hr due to ongoing mild leukocytosis - acute CVA at anterior corpus callosum and left parietal periventricular white matter; subacute bilateral parietal lobe infarcts- ASA, statin - seizure disorder- keppra; seizure precautions - HTN- fluctuating blood pressure; clonidine dose adjusted since admission; continue to follow closely - DM- fair control with fluctuating po intake; continue current regimen - ESRD- on HD, MWF; Nephrology following; with anemia due to ESRD, on procrit - DVT px- heparin - Patient Problems (1) Spinal cord infarction Current Visit: No Status: Acute (2) CVA (cerebral vascular accident) Current Visit: Yes Status: Acute Qualifiers: CVA mechanism: other Precerebral and cerebral artery: P Qualified Code(s) : I63.8 - Other cerebral infarction (3) Seizure Current Visit: No Status: Acute (4) Diabetes Current Visit: Yes Status: Acute Qualifiers: Diabetes mellitus type: type 2 Diabetes mellitus complication status: with hyperglycemia Diabetes mellitus complication detail: D Diabetic retinopathy severity: D Proliferative retinopathy type: P Diabetes mellitus macular edema: D Diabetes mellitus extermination supervisor insulin use: with extermination supervisor use Laterality: L Chronic kidney disease stage: C Qualified Code(s): E11.65 - Type 2 diabetes mellitus with hyperglycemia; Z79.4 - supervisor intermediates (current) use of insulin (5) HTN (hypertension) Current Visit: Yes Status: Acute Qualifiers: Hypertension type: essential hypertension Qualified Code(s): I10 - Essential (primary) hypertension (6) ESRD on hemodialysis Current Visit: Yes Status: Acute (7) Anemia in ESRD (end-stage renal disease) Current Visit: Yes Status: Chronic Subjective Date of service: 10/05/16 Principal diagnosis: thoracic cord infarction Interval history: Pt seen in OT gym this AM, F/U IPR course, s/p thoracic cord infarction and acute CVAs. Discussed wound care F/U on this AM; pt with breakdown on buttocks on admission (per acute care chart, noted to have some full thickness skin loss associated with positioning of the rectal tube, as well as, moisture at the gluteal fold; Epidermis is sloughing; initiated on butt cream & nystatin at that time and continued on admission to IRU). Extensive education provided to patient concerning bowel/bladder care and skin protection Objective - Constitutional Vitals: Vital Signs - 12hr 10/05/16 10/05/16 10/05/16 04:00 07:51 08:00 Temperature 98.7 F Pulse Rate 88 Pulse Rate [ 84 Left Brachial] Respiratory 20 Rate Blood Pressure 114/58 Blood Pressure 121/69 [Left Arm] O2 Sat by Pulse 100 99 Oximetry 10/05/16 10/05/16 10:44 11:43 Temperature Pulse Rate 87 Pulse Rate [ Left Brachial] Respiratory 22 Rate Blood Pressure 112/64 Blood Pressure [Left Arm] O2 Sat by Pulse Oximetry General appearance: Present: no acute distress, obese - EENT Eyes: EOM intact ENT: hearing intact - Neck Neck: supple, normal ROM - Respiratory Respiratory effort: normal Respiratory: bilateral: CTA - Cardiovascular Rhythm: regular Heart Sounds: Present: S1 & S2 Extremities: No edema Extremity abnormal: other (no tone/spasticity noted in BLE) - Gastrointestinal General gastrointestinal: Present: soft, non-tender, non-distended, normal bowel sounds - Neurologic Neurologic: CNII-XII intact, other (unchanged BLE paralysis) - Psychiatric Psychiatric: appropriate mood/affect, cooperative - Allied health notes Allied health notes reviewed: PT (max-CGA for sitting balance; totalA x3 for sliding board transfers) - Labs CBC & Chem 7: 10/05/16 06:39 10/05/16 06:39 Labs: Abnormal lab results 10/04/16 10/04/16 10/04/16 Range/Units 12:34 16:10 20:41 WBC (4.5-11.0) K/mm3 RBC (3.65-5.03) M/mm3 Hgb (10.1-14.3) gm/dl Hct (30.3-42.9) % MCH (28-32) pg MCHC (30-34) % RDW (13.2-15.2) % BUN (7-17) mg/dL Creatinine (0.7-1.2) mg/dL Glucose (65-100) mg/dL POC Glucose 238 H 211 H 299 H (70-105) 10/05/16 10/05/16 10/05/16 Range/Units 06:39 06:39 06:43 WBC 12.2 H (4.5-11.0) K/mm3 RBC 2.71 L (3.65-5.03) M/mm3 Hgb 7.1 L (10.1-14.3) gm/dl Hct 24.0 L (30.3-42.9) % MCH 26 L (28-32) pg MCHC 29 L (30-34) % RDW 16.9 H (13.2-15.2) % BUN 39 H (7-17) mg/dL Creatinine 7.6 H D (0.7-1.2) mg/dL Glucose 193 H (65-100) mg/dL POC Glucose 191 H (70-105) 10/05/16 Range/Units 12:30 WBC (4.5-11.0) K/mm3 RBC (3.65-5.03) M/mm3 Hgb (10.1-14.3) gm/dl Hct (30.3-42.9) % MCH (28-32) pg MCHC (30-34) % RDW (13.2-15.2) % BUN (7-17) mg/dL Creatinine (0.7-1.2) mg/dL Glucose (65-100) mg/dL POC Glucose 195 H (70-105)
[2016-10-05] MEDS ORDERED: NACL 0.9 (PRIMING MACHINE ONLY DIALYSIS) MC ONE (15:33)
[2016-10-05] MEDS: HEPARIN IV PRN (19:50)
[2016-10-05] MEDS: PROCRIT IV PRN (19:51)
[2016-10-05] MEDS: ZOCOR PO SCH (21:57)
[2016-10-05] MEDS: SENOKOT PO SCH (21:57)
[2016-10-05] MEDS: DULCOLAX PR SCH (22:01)
[2016-10-06] MEDS: CATAPRES PO SCH (03:06)
[2016-10-06] MEDS: NYSTOP TP SCH ×3 (05:03→22:15)
[2016-10-06] MEDS: NOVOLOG SUB-Q SCH ×5 (07:30→22:53)
[2016-10-06] MEDS: BUTT PASTE/LIDOCAINE TP SCH (08:00)
[2016-10-06] MEDS: KEPPRA PO SCH ×2 (10:12→22:15)
[2016-10-06] MEDS: ASPIRIN PO SCH (10:12)
[2016-10-06] MEDS: PEPCID PO SCH (10:12)
[2016-10-06] MEDS: HEPARIN SUB-Q SCH ×2 (10:13→22:21)
[2016-10-06] MEDS: ULTRAM PO PRN (10:27)
[2016-10-06] MEDS ORDERED: NACL 0.9% 250ML 250 ML IV ONE (11:46)
[2016-10-06] MEDS ORDERED: NACL 0.9% 1000 ML 1,000 ML ONE (12:49)
[2016-10-06] MEDS ORDERED: CATAPRES PO SCH (14:00)
--- NOTE | 2016-10-06 14:47 | Progress Note ---
Assessment and Plan 36 y.o. female s/p intractable status epilepticus on presentation; s/p acute respiratory failure requiring intubation, acute metabolic encephalopathy, GN bacteremia, +E.Faecalis in urine, hypokalemia, left arm cellulitis. Pt later noted to have acute CVA at anterior corpus callosum and left parietal periventricular white matter, subacute bilateral parietal lobe infarcts, and acute onset of BLE numbness and paralysis thought to be secondary to thoracic cord infarction from hypotension; also with mobile vegetation on permacath wire in right atrium; permacath replaced/resolved on 09/29 - thoracic cord infarction- bowel/bladder management; bladder scans Q4hr, straight cath for >350cc; dulcolax suppositories QOHS; Q2 hour toileting while awake; pressure relief; Q2 hour turning schedule when in bed; float heels when in bed - wound care- wound care nurse evaluated pt on yesterday and again on today; recommendations discussed with myself and with nursing - fever- noted this AM; blood cultures and repeat UA/C&S ordered - acute CVA at anterior corpus callosum and left parietal periventricular white matter; subacute bilateral parietal lobe infarcts- ASA, statin; stat CT ordered due to altered mental status this afternoon - seizure disorder- keppra; seizure precautions - HTN- continues with intermittent hypotension; d/c'd clonidine on today; second fluid bolus infusing now - DM- not getting scheduled insulin due to decreased po intake; follow - ESRD- on HD, MWF; Nephrology following; with anemia due to ESRD, on procrit - DVT px- heparin - team conference held on today- on admission, pt required Supervision for Eating and grooming; modA for UB Dressing; max-totalA for remaining ADLs. On today, pt noted to be s/u for eating, Ananya for grooming, modA for UB dressing; maxA fro bathing, sliding board transfers, and bed mobility; totalA for LB dressing, toileting, toilet transfers. MaxA for sitting balance. Pt limited by hypotension, back pain, and decreased motivation. Pt also with limited po intake; will add novosource Day, dietitian following. Pt continues to require significant assistance with self cares, non-ambulatory. Pt remains an appropriate candidate for IRU course; anticipated d/c date of 10/27. - Patient Problems (1) Spinal cord infarction Current Visit: No Status: Acute (2) CVA (cerebral vascular accident) Current Visit: Yes Status: Acute Qualifiers: CVA mechanism: other Precerebral and cerebral artery: P Laterality of affected vessel: L Qualified Code(s): I63.8 - Other cerebral infarction (3) Seizure Current Visit: No Status: Acute (4) Diabetes Current Visit: Yes Status: Acute Qualifiers: Diabetes mellitus type: type 2 Diabetes mellitus complication status: with hyperglycemia Diabetes mellitus complication detail: D Diabetic retinopathy severity: D Proliferative retinopathy type: P Diabetes mellitus macular edema: D Diabetes mellitus intermediate frame tender insulin use: with [facility] use Laterality: L Chronic kidney disease stage: C Qualified Code(s): E11.65 - Type 2 diabetes mellitus with hyperglycemia; Z79.4 - [facility] (current) use of insulin (5) HTN (hypertension) Current Visit: Yes Status: Acute Qualifiers: Hypertension type: essential hypertension Qualified Code(s): I10 - Essential (primary) hypertension (6) ESRD on hemodialysis Current Visit: Yes Status: Acute (7) Anemia in ESRD (end-stage renal disease) Current Visit: Yes Status: Chronic Subjective Date of service: 10/06/16 Principal diagnosis: thoracic cord infarction Interval history: Pt seen in gym this AM and later this afternoon in room, F/U IPR course, s/p thoracic cord infarction and acute CVAs. symptomatic hypotension this AM; placed back to bed. F/U BPs remains low; 250cc bolus given x2. Pt with limited responsiveness on this afternoon; stat CT ordered and is pending; IM consult also placed Objective - Constitutional Vitals: Vital Signs - 12hr 10/06/16 10/06/16 10/06/16 02:55 03:06 08:00 Temperature 100.4 F H Pulse Rate 96 H Pulse Rate [ 96 H 110 H Left Brachial] Pulse Rate [ Right Radial] Respiratory 20 Rate Blood Pressure 139/69 Blood Pressure 139/69 [Left Arm] Blood Pressure 89/44 [Right Arm] O2 Sat by Pulse 96 Oximetry 10/06/16 10/06/16 10/06/16 08:55 10:00 13:10 Temperature Pulse Rate 103 H Pulse Rate [ 103 H Left Brachial] Pulse Rate [ 100 H Right Radial] Respiratory 18 20 Rate Blood Pressure 88/50 Blood Pressure [Left Arm] Blood Pressure 95/60 [Right Arm] O2 Sat by Pulse 100 Oximetry General appearance: Present: other (lethargic) - EENT ENT: hearing intact - Neck Neck: supple - Respiratory Respiratory effort: normal Respiratory: bilateral: CTA - Cardiovascular Rhythm: regular Heart Sounds: Present: S1 & S2 Extremities: No edema - Gastrointestinal General gastrointestinal: Present: soft, non-tender, non-distended, normal bowel sounds - Integumentary Integumentary: dry - Neurologic Neurologic: other (BLE remain flaccid; limited active movement in LUE, later improved to baseline after returning from CT) - Psychiatric Psychiatric: other (lethargic initially; currently is following commands) - Labs CBC & Chem 7: 10/06/16 14:58 10/06/16 14:58 Labs: Abnormal lab results 10/05/16 10/06/16 10/06/16 Range/Units 21:39 06:42 12:11 POC Glucose 226 H 208 H 321 H (70-105)
[2016-10-06 15:14] LABS: Hemoglobin 8.2 gm/dl (10.1-14.3); Mean Corpuscular HGB Conc 30 % (30-34); Mean Corpuscular Hemoglobin 26 pg (28-32); Mean Corpuscular Volume 87 fl (79-97); Red Cell Distribution Width 17.4 % (13.2-15.2)
[2016-10-06 15:15] LABS: Platelet Count 341 K/mm3 (140-440); White Blood Count 23.2 K/mm3 (4.5-11.0)
[2016-10-06 15:24] LABS: BUN/Creatinine Ratio 4.61; Calcium 8.5 mg/dL (8.4-10.2); Chloride 95.7 mmol/L (98-107); Potassium 4.3 mmol/L (3.6-5.0)
--- NOTE | 2016-10-06 15:28 | Cat Scan Report ---
CT HEAD WITHOUT CONTRAST INDICATION: Altered mental status. Recent CVAs. COMPARISON: 09/16/2016. FINDINGS: Noncontrast head CT demonstrates new 1.5 cm hypodensity along the corpus callosum anteriorly between the frontal horns of the lateral ventricles as on axial images , series 2, suspicious for acute infarction. Ventricles and sulci otherwise stable with possible old occipital lobes and right paramidline parietal lobe infarction/encephalomalacia. No acute hemorrhage, mass effect or midline shift. No abnormal extra axial fluid collections. Normal posterior fossa with preserved basilar cisterns. Mild left maxillary sinus mucosal thickening laterally now partially imaged with interval resolution of sphenoid and ethmoid sinusitis. Left greater than right mastoiditis also again noted, though overall lesser/improved without evidence of middle ear opacity/fluid at this time. Mild atherosclerotic internal carotid artery calcifications. Intact calvarium with hyperostosis frontalis interna. Normal scalp. CONCLUSION: 1. CT findings suspicious for a 1.5 cm acute nonhemorrhagic infarct involving the genu of the corpus callosum anteriorly, as described. 2. Few other findings, including mild sinusitis and bilateral mastoiditis, improved in the interval. Thank you for the opportunity to participate in this patient's care.
[2016-10-06 15:47] LABS: Basophils % (Manual) 0 % (0.0-1.8); Blastocytes % (Manual) 0 %
[2016-10-06 15:49] LABS: Diff Status Complete; Giant Platelets Few; Large Platelets Few; Platelet Estimate Consistent w Auto; RBC Morphology Normal
[2016-10-06] MEDS ORDERED: VANCOMYCIN/NS 1 GM/250 ML 1 GM/250 ML BAG IV ONE (16:41)
[2016-10-06] MEDS: LEVAQUIN 500MG/100ML 500 MG/100 ML BAG IV SCH (17:39)
[2016-10-06] MEDS: TYLENOL PO PRN (17:40)
[2016-10-06] MEDS ORDERED: VANCOMYCIN 1,500 MG in NACL 0.9% 500 ML 500 ML IV ONE (18:00)
[2016-10-06] MEDS: LEVAQUIN PO SCH (20:13)
[2016-10-06] MEDS: ZOCOR PO SCH (20:42)
[2016-10-06] MEDS: SENOKOT PO SCH (20:51)
[2016-10-06] MEDS: DULCOLAX PR SCH (20:53)
[2016-10-06] MEDS: TRANSDERM-SCOP TD SCH (20:59)
--- NOTE | 2016-10-06 21:03 | Consultation ---
History of Present Illness - Reason for Consult Consult date: 10/06/16 Medical management Requesting physician: DIANA CASTRO - History of Present Illness Was asked to evaluate for Hypotension.Patient on Clonidine 0.3 q8 Has multiple medical problems including T Spinal cord infarction ESRD IDDM etc.In Rehab therapy Past History Past Medical History: diabetes, ESRD (recently initiated on HD ), GERD, hypertension, seizures Past Surgical History: Other (dialysis access) Social history: single, other (lives with 8 y.o. daugther; parents present). denies: smoking, alcohol abuse Family history: diabetes, hypertension, stroke Medications and Allergies Allergies Allergy/AdvReac Type Severity Reaction Status Date / Time No Known Allergies Allergy Verified 09/05/16 20:32 Home Medications Medication Instructions Recorded Confirmed Last Taken Type Enoxaparin [Lovenox] 30 mg SQ QDAY 30 Days 09/24/16 09/30/16 Unknown Rx Famotidine [Pepcid] 20 mg PO QDAY tablet 09/24/16 09/30/16 Unknown Rx HYDROcodone/APAP 5-325 [[place] 1 each PO Q6HR PRN #20 tablet 09/24/16 09/30/16 Unknown Rx 5/325] Insulin NPH/Regular [NovoLIN 70/30] 28 unit SUB-Q BIDDIAB units 09/24/16 Unknown Rx QUEtiapine [SEROquel] 50 mg PO BID tablet 09/24/16 09/30/16 Unknown Rx Scopolamine [Transderm-Scop] 1 each TD Q3D patch 09/24/16 09/30/16 Unknown Rx cloNIDine [Catapres] 0.3 mg PO Q8HR tablet 09/24/16 09/30/16 Unknown Rx levETIRAcetam [Keppra TAB] 500 mg PO BID #60 tablet 09/24/16 09/30/16 Unknown Rx Active Meds: Active Medications Acetaminophen (Tylenol) 650 mg PO Q4H PRN PRN Reason: Pain MILD(1-3)/Fever >100.5/RG Last Admin: 10/06/16 17:40 Dose: 650 mg Aspirin (Aspirin) 325 mg PO QDAY [facility] Last Admin: 10/06/16 10:12 Dose: 325 mg Bisacodyl (Dulcolax) 10 mg [place] QHS [facility] Last Admin: 10/05/16 22:01 Dose: Not Given Dextrose (D50w (25gm)) 50 ml IV PRN PRN PRN Reason: Hypoglycemia Epoetin Pancho (Epogen) 20,000 unit IV DG PRN PRN Reason: hemodialysis Famotidine (Pepcid) 20 mg PO QDAY [facility] Last Admin: 10/06/16 10:12 Dose: 20 mg Heparin Sodium (Porcine) (Heparin) 5,000 unit SUB-Q Q12HR [facility] Last Admin: 10/06/16 10:13 Dose: 5,000 unit Heparin Sodium (Porcine) (Heparin) 5,000 unit IV DG PRN PRN Reason: hemodialysis Last Admin: 10/05/16 19:50 Dose: 5,000 unit Sodium Chloride (Nacl 0.9%) 100 mls @ 999 mls/hr IV DG PRN PRN Reason: Hypotension Levofloxacin/Dextrose (Levaquin 500mg/100ml) 500 mg in 100 mls @ 100 mls/hr IV Q48H BOOM PRN Reason: Protocol Last Admin: 10/06/16 17:39 Dose: 100 mls/hr Insulin Aspart (Novolog) 0 units SUB-Q ACHS BOOM PRN Reason: Protocol Last Admin: 10/06/16 17:51 Dose: 4 units Insulin Human Isoph/Insulin Regular (Novolin 70/30) 20 unit SUB-Q BIDDIAB [facility] Last Admin: 10/06/16 17:19 Dose: Not Given Levetiracetam (Keppra) 750 mg PO BID [facility] Last Admin: 10/06/16 10:12 Dose: 750 mg Nystatin (Nystop) 1 applic TP BID [facility] Last Admin: 10/06/16 08:00 Dose: Not Given Scopolamine (Transderm-Scop) 1 each TD Q3D [facility] Last Admin: 10/03/16 22:01 Dose: 1 each Senna (Senokot) 8.6 mg PO QHS [facility] Last Admin: 10/06/16 20:51 Dose: Not Given Silver Sulfadiazine (Thermazene 50 Gram) 1 applic TP BID [facility] Simvastatin (Zocor) 40 mg PO QHS [facility] Last Admin: 10/06/16 20:42 Dose: 40 mg Tramadol HCl (Ultram) 50 mg PO Q6H PRN PRN Reason: Pain, Moderate (4-6) Last Admin: 10/06/16 10:27 Dose: 50 mg Review of Systems All systems: negative Exam - Constitutional Vitals: Temp Pulse Resp BP Pulse Ox 98.8 F 90 18 116/61 100 10/06/16 18:00 10/06/16 18:00 10/06/16 18:00 10/06/16 16:00 10/06/16 16:00 General appearance: Present: no acute distress, well-nourished - EENT Eyes: Present: PERRL ENT: hearing intact, clear oral mucosa - Neck Neck: Present: supple, normal ROM - Respiratory Respiratory effort: normal Respiratory: bilateral: CTA - Cardiovascular Heart Sounds: Present: S1 & S2. Absent: rub, click - Extremities Extremities: pulses symmetrical, No edema Peripheral Pulses: within normal limits - Abdominal General gastrointestinal: Present: soft, non-tender, non-distended, normal bowel sounds Female genitourinary: Present: normal - Integumentary Integumentary: Present: clear, warm, dry - Musculoskeletal Musculoskeletal: gait normal, strength equal bilaterally - Psychiatric Psychiatric: appropriate mood/affect, intact judgment & insight - Neurologic Neurologic: CNII-XII intact, moves all extremities Results - Labs CBC & Chem 7: 10/07/16 08:23 10/06/16 14:58 Labs: Abnormal lab results 10/05/16 10/05/16 10/06/16 Range/Units 17:35 21:39 06:42 WBC (4.5-11.0) K/mm3 RBC (3.65-5.03) M/mm3 Hgb (10.1-14.3) gm/dl Hct (30.3-42.9) % MCH (28-32) pg RDW (13.2-15.2) % Seg Neuts % (Manual) (40.0-70.0) % Lymphocytes % (Manual) (13.4-35.0) % Monocytes % (Manual) (0.0-7.3) % Seg Neutrophils # Man (1.8-7.7) K/mm3 Monocytes # (Manual) (0.0-0.8) K/mm3 Chloride (98-107) mmol/L BUN (7-17) mg/dL Creatinine (0.7-1.2) mg/dL Glucose (65-100) mg/dL POC Glucose 199 H 226 H 208 H (70-105) 10/06/16 10/06/16 10/06/16 Range/Units 12:11 14:58 14:58 WBC 23.2 H (4.5-11.0) K/mm3 RBC 3.10 L (3.65-5.03) M/mm3 Hgb 8.2 L (10.1-14.3) gm/dl Hct 27.0 L (30.3-42.9) % MCH 26 L (28-32) pg RDW 17.4 H (13.2-15.2) % Seg Neuts % (Manual) 78.0 H (40.0-70.0) % Lymphocytes % (Manual) 12.0 L (13.4-35.0) % Monocytes % (Manual) 9.0 H (0.0-7.3) % Seg Neutrophils # Man 18.1 H (1.8-7.7) K/mm3 Monocytes # (Manual) 2.1 H (0.0-0.8) K/mm3 Chloride 95.7 L (98-107) mmol/L BUN 24 H (7-17) mg/dL Creatinine 5.2 H (0.7-1.2) mg/dL Glucose 310 H (65-100) mg/dL POC Glucose 321 H (70-105) 10/06/16 10/06/16 Range/Units 15:31 16:27 WBC (4.5-11.0) K/mm3 RBC (3.65-5.03) M/mm3 Hgb (10.1-14.3) gm/dl Hct (30.3-42.9) % MCH (28-32) pg RDW (13.2-15.2) % Seg Neuts % (Manual) (40.0-70.0) % Lymphocytes % (Manual) (13.4-35.0) % Monocytes % (Manual) (0.0-7.3) % Seg Neutrophils # Man (1.8-7.7) K/mm3 Monocytes # (Manual) (0.0-0.8) K/mm3 Chloride (98-107) mmol/L BUN (7-17) mg/dL Creatinine (0.7-1.2) mg/dL Glucose (65-100) mg/dL POC Glucose 283 H 319 H (70-105) Assessment and Plan - Patient Problems (1) Leukocytosis Current Visit: Yes Status: Acute Qualifiers: Leukocytosis type: L Plan to address problem: R/o sepsis Catheter related infection.Vas cath changed on 09/29.Pt on Levaquin and Vancomycin. 09/05 coag negative staph (2) Hypotension Current Visit: Yes Status: Acute Qualifiers: Hypotension type: hypotension due to drug Trimester: T Qualified Code(s) : I95.2 - Hypotension due to drugs Plan to address problem: Sec to Clonidine.Will Hold Clonidine for now.May add LOosartan 50 or 100 mg depending on his Bp measurements (3) ESRD on hemodialysis Current Visit: Yes Status: Chronic Plan to address problem: Cont HD (4) Diabetes Current Visit: Yes Status: Chronic Qualifiers: Diabetes mellitus type: type 2 Diabetes mellitus complication status: with hyperglycemia Diabetes mellitus complication detail: D Diabetic retinopathy severity: D Proliferative retinopathy type: P Diabetes mellitus macular edema: D Diabetes mellitus prison insulin use: with prison use Laterality: L Chronic kidney disease stage: C Qualified Code(s): E11.65 - Type 2 diabetes mellitus with hyperglycemia; Z79.4 - group home (current) use of insulin Plan to address problem: Cont Coverage (5) Spinal cord infarction Current Visit: No Status: Acute Plan to address problem: Cont rehab
--- NOTE | 2016-10-06 22:14 | Progress Note ---
Assessment and Plan Assessment: * End stage renal disease * Hypotension - ?iatrogenic 2/2 antiHTN medications vs infectious process * Low grade fever * Status post Hyperglycemic hyperosmolar nonketotic coma * Status post hypoxemic respiratory failure * Catheter associated bacteremia --Blood cx 09/05: coag negative staph * Permcath w/ mobile vegetation --PermCath was exchanged on 09/29/2016 * Thoracic spinal cord infarction * Seizure * Anemia secondary to ESRD * Hx of enterococcal UTI (cx 09/08) Plan: * NS bolus 250ml ordered * Agree with holding antiHTN medications * Will obtain blood cx and urine cx (straight cath) * Will order Vanco/Levaquin * Continue MWF schedule - UF as tolerated * Dose medications for renal function * Epogen with dialysis * Monitor patient's hemoglobin and transfuse as needed Subjective Date of service: 10/06/16 Principal diagnosis: thoracic cord infarction Interval history: Patient has no complaints at present. Per RN, patient hypotensive w/ SBP in 80- 90s and low grade fever 100.4. Objective - Vital Signs Vital signs: Vital Signs - 12hr 10/06/16 10/06/16 10/06/16 13:10 16:00 18:00 Temperature 100.1 F H 98.8 F Pulse Rate 103 H Pulse Rate [ 96 H Left Brachial] Pulse Rate [ 90 Right Radial] Respiratory 18 18 Rate Blood Pressure 88/50 Blood Pressure 116/61 110/65 [Left Arm] O2 Sat by Pulse 100 Oximetry 10/06/16 20:00 Temperature 98.7 F Pulse Rate Pulse Rate [ 87 Left Brachial] Pulse Rate [ Right Radial] Respiratory 20 Rate Blood Pressure Blood Pressure 117/68 [Left Arm] O2 Sat by Pulse 100 Oximetry - General Appearance General appearance: well-developed, well-nourished EENT: ATNC Respiratory: Present: Clear to Ascultation Cardiology: regular, S1S2 Gastrointestinal: normal, no tenderness, no distended Integumentary: no rash Musculoskeletal: other (trace edema) Psychiatric: cooperative - Lab 10/06/16 14:58 10/06/16 14:58 Most recent lab results Calcium 8.5 mg/dL (8.4-10.2) 10/06/16 14:58
[2016-10-06] MEDS: THERMAZENE 50 GRAM TP SCH (22:15)
[2016-10-07] MEDS: NOVOLOG SUB-Q SCH ×4 (07:30→21:50)
[2016-10-07] MEDS: NYSTOP TP SCH ×2 (08:00→21:49)
[2016-10-07] MEDS: THERMAZENE 50 GRAM TP SCH ×2 (08:00→21:49)
[2016-10-07 08:31] LABS: Hematocrit 22.7 % (30.3-42.9); Hemoglobin 6.7 gm/dl (10.1-14.3); Mean Corpuscular HGB Conc 30 % (30-34); Mean Corpuscular Volume 86 fl (79-97); Platelet Count 347 K/mm3 (140-440); Red Blood Count 2.66 M/mm3 (3.65-5.03); Red Cell Distribution Width 17.1 % (13.2-15.2)
[2016-10-07 08:35] LABS: Mean Corpuscular Hemoglobin 25 pg (28-32); White Blood Count 28.2 K/mm3 (4.5-11.0)
[2016-10-07] MEDS: TYLENOL PO PRN ×2 (08:43→18:24)
[2016-10-07] MEDS ORDERED: VANCOMYCIN PHARMACY TO DOSE IV SCH (09:00)
--- NOTE | 2016-10-07 09:19 | Progress Note ---
Assessment and Plan Assessment: * End stage renal disease * Hypotension - ?iatrogenic 2/2 antiHTN medications vs infectious process * Fever r/o bacteremia * Status post Hyperglycemic hyperosmolar nonketotic coma * Status post hypoxemic respiratory failure * Catheter associated bacteremia --Blood cx 09/05: coag negative staph * Permcath w/ mobile vegetation --PermCath was exchanged on 09/29/2016 * Thoracic spinal cord infarction * Seizure * Anemia secondary to ESRD * Hx of enterococcal UTI (cx 09/08) Plan: * Continue MWF schedule - UF as tolerated * Agree with holding antiHTN medications * Await pending cultures results * Continue Vanco/Levaquin * Consider ID consult * Dose medications for renal function * Epogen with dialysis * Guaiac stools * Transfuse pRBC x 2 units with dialysis today Subjective Date of service: 10/07/16 Principal diagnosis: thoracic cord infarction Interval history: 24h events noted. No acute events overnight. Objective - Vital Signs Vital signs: Vital Signs - 12hr 10/06/16 10/07/16 10/07/16 22:00 08:00 08:29 Temperature 102.5 F H Pulse Rate [ 108 H Left Brachial] Respiratory 20 Rate Blood Pressure 134/69 [Left Arm] O2 Sat by Pulse 100 100 100 Oximetry - General Appearance General appearance: well-developed, well-nourished EENT: ATNC Respiratory: Present: Clear to Ascultation Cardiology: regular, S1S2 Gastrointestinal: normal, no tenderness, no distended Integumentary: no rash Musculoskeletal: other (no edema) - Lab 10/07/16 08:23 10/07/16 08:23 Most recent lab results Calcium 8.5 mg/dL (8.4-10.2) 10/06/16 14:58
[2016-10-07 11:04] LABS: BUN/Creatinine Ratio 4.84; Calcium 8.4 mg/dL (8.4-10.2); Chloride 96.8 mmol/L (98-107)
--- NOTE | 2016-10-07 11:29 | Progress Note ---
Assessment and Plan 36 y.o. female s/p intractable status epilepticus on presentation; s/p acute respiratory failure requiring intubation, acute metabolic encephalopathy, GN bacteremia, +E.Faecalis in urine, hypokalemia, left arm cellulitis. Pt later noted to have acute CVA at anterior corpus callosum and left parietal periventricular white matter, subacute bilateral parietal lobe infarcts, and acute onset of BLE numbness and paralysis thought to be secondary to thoracic cord infarction from hypotension; also with mobile vegetation on permacath wire in right atrium; permacath replaced/resolved on 09/29 - thoracic cord infarction- bowel/bladder management; bladder scans Q4hr, straight cath for >350cc; dulcolax suppositories QOHS; Q2 hour toileting while awake; pressure relief; Q2 hour turning schedule when in bed; float heels when in bed - wound care- ongoing wound care for sacral breakdown - fever- sepsis workup in progress; blood cultures and repeat UA/C&S pending - acute CVA at anterior corpus callosum and left parietal periventricular white matter; subacute bilateral parietal lobe infarcts- ASA, statin; no change in area noted as acute infarct on CT; improved mental status on today - seizure disorder- keppra; seizure precautions - HTN- much improved BP on today; clonidine discontinued - DM- 70/30 discontinued due to decreased po intake; pt educated on need to eat more; continue SSI for now; follow - ESRD- on HD, MWF; Nephrology following - anemia due to ESRD- procrit - DVT px- heparin - therapies held on yesterday due to symptomatic hypotension; to resume today, however, ongoing sepsis workup - Patient Problems (1) Spinal cord infarction Current Visit: No Status: Acute (2) CVA (cerebral vascular accident) Current Visit: Yes Status: Acute Qualifiers: CVA mechanism: other Precerebral and cerebral artery: P Laterality of affected vessel: L Qualified Code(s): I63.8 - Other cerebral infarction (3) Seizure Current Visit: No Status: Acute (4) Diabetes Current Visit: Yes Status: Chronic Qualifiers: Diabetes mellitus type: type 2 Diabetes mellitus complication status: with hyperglycemia Diabetes mellitus complication detail: D Diabetic retinopathy severity: D Proliferative retinopathy type: P Diabetes mellitus macular edema: D 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 Laterality: L Chronic kidney disease stage: C Qualified Code(s): E11.65 - Type 2 diabetes mellitus with hyperglycemia; Z79.4 - superintendent container terminal (current) use of insulin (5) HTN (hypertension) Current Visit: Yes Status: Acute Qualifiers: Hypertension type: essential hypertension Qualified Code(s): I10 - Essential (primary) hypertension (6) ESRD on hemodialysis Current Visit: Yes Status: Chronic (7) Anemia in ESRD (end-stage renal disease) Current Visit: Yes Status: Chronic Subjective Date of service: 10/07/16 Principal diagnosis: thoracic cord infarction Interval history: Pt seen in room this AM, F/U IPR course, s/p thoracic cord infarction and acute CVAs. Much more alert and BP much improved on today; however, now with increasing leukocytosis and febrile; also with drop in H/H, pending transfusion Objective - Constitutional Vitals: Vital Signs - 12hr 10/07/16 10/07/16 08:00 08:29 Temperature 102.5 F H Pulse Rate [ 108 H Left Brachial] Respiratory 20 Rate Blood Pressure 134/69 [Left Arm] O2 Sat by Pulse 100 100 Oximetry General appearance: Present: no acute distress - EENT Eyes: EOM intact ENT: hearing intact - Neck Neck: supple, normal ROM - Respiratory Respiratory effort: normal Respiratory: bilateral: CTA - Cardiovascular Rhythm: regular Heart Sounds: Present: S1 & S2 Extremities: No edema Extremity abnormal: other (TEDs in place to BLE; no tone/spascticity noted) - Gastrointestinal General gastrointestinal: Present: soft, non-tender, non-distended, normal bowel sounds - Neurologic Neurologic: other (no movement in BLE; unchanged) - Psychiatric Psychiatric: cooperative (flat affect; following commands ) - Labs CBC & Chem 7: 10/07/16 08:23 10/07/16 08:23 Labs: Abnormal lab results 10/05/16 10/06/16 10/06/16 Range/Units 17:35 12:11 14:58 WBC 23.2 H (4.5-11.0) K/mm3 RBC 3.10 L (3.65-5.03) M/mm3 Hgb 8.2 L (10.1-14.3) gm/dl Hct 27.0 L (30.3-42.9) % MCH 26 L (28-32) pg RDW 17.4 H (13.2-15.2) % Seg Neuts % (Manual) 78.0 H (40.0-70.0) % Lymphocytes % (Manual) 12.0 L (13.4-35.0) % Monocytes % (Manual) 9.0 H (0.0-7.3) % Seg Neutrophils # Man 18.1 H (1.8-7.7) K/mm3 Monocytes # (Manual) 2.1 H (0.0-0.8) K/mm3 Chloride (98-107) mmol/L BUN (7-17) mg/dL Creatinine (0.7-1.2) mg/dL Glucose (65-100) mg/dL POC Glucose 199 H 321 H (70-105) 10/06/16 10/06/16 10/06/16 Range/Units 14:58 15:31 16:27 WBC (4.5-11.0) K/mm3 RBC (3.65-5.03) M/mm3 Hgb (10.1-14.3) gm/dl Hct (30.3-42.9) % MCH (28-32) pg RDW (13.2-15.2) % Seg Neuts % (Manual) (40.0-70.0) % Lymphocytes % (Manual) (13.4-35.0) % Monocytes % (Manual) (0.0-7.3) % Seg Neutrophils # Man (1.8-7.7) K/mm3 Monocytes # (Manual) (0.0-0.8) K/mm3 Chloride 95.7 L (98-107) mmol/L BUN 24 H (7-17) mg/dL Creatinine 5.2 H (0.7-1.2) mg/dL Glucose 310 H (65-100) mg/dL POC Glucose 283 H 319 H (70-105) 10/06/16 10/07/16 10/07/16 Range/Units 21:23 06:55 08:23 WBC 28.2 H (4.5-11.0) K/mm3 RBC 2.66 L (3.65-5.03) M/mm3 Hgb 6.7 L (10.1-14.3) gm/dl Hct 22.7 L (30.3-42.9) % MCH 25 L (28-32) pg RDW 17.1 H (13.2-15.2) % Seg Neuts % (Manual) (40.0-70.0) % Lymphocytes % (Manual) (13.4-35.0) % Monocytes % (Manual) (0.0-7.3) % Seg Neutrophils # Man (1.8-7.7) K/mm3 Monocytes # (Manual) (0.0-0.8) K/mm3 Chloride (98-107) mmol/L BUN (7-17) mg/dL Creatinine (0.7-1.2) mg/dL Glucose (65-100) mg/dL POC Glucose 230 H 304 H (70-105) 10/07/16 Range/Units 08:23 WBC (4.5-11.0) K/mm3 RBC (3.65-5.03) M/mm3 Hgb (10.1-14.3) gm/dl Hct (30.3-42.9) % MCH (28-32) pg RDW (13.2-15.2) % Seg Neuts % (Manual) (40.0-70.0) % Lymphocytes % (Manual) (13.4-35.0) % Monocytes % (Manual) (0.0-7.3) % Seg Neutrophils # Man (1.8-7.7) K/mm3 Monocytes # (Manual) (0.0-0.8) K/mm3 Chloride 96.8 L (98-107) mmol/L BUN 32 H (7-17) mg/dL Creatinine 6.6 H (0.7-1.2) mg/dL Glucose 297 H (65-100) mg/dL POC Glucose (70-105)
[2016-10-07] MEDS: KEPPRA PO SCH ×2 (11:38→21:43)
[2016-10-07] MEDS: ASPIRIN PO SCH (11:39)
[2016-10-07] MEDS: PEPCID PO SCH (11:39)
[2016-10-07] MEDS: HEPARIN SUB-Q SCH ×2 (11:40→21:44)
[2016-10-07] MEDS ORDERED: NACL 0.9% 500 ML 500 ML IV ONE (12:00)
--- NOTE | 2016-10-07 14:51 | Progress Note ---
Assessment and Plan Assessment and plan: 36-year-old woman status post thoracic cord infarction and acute CVA who is now paraplegic in acute rehabilitation for aggressive rehabilitation. Medicine consulted for management of hypotension and presumed sepsis. 1. Severe sepsis, septic shock with hypotension On Levaquin and vanc, add Zosyn -IVF resuscitation, prbc ordered Continue sepsis pathway, she does have Gardnerella vaginalis UTI, treats with metronidazole 7 days Obtain chest x-ray to rule out pneumonia, follow-up blood cultures from yesterday and repeat blood culture today Continue empiric antibiotics in the meantime, please consider ID consult (Dr Ogden) Also notes there was a vegetation seen on permacath which was exchanged on however blood cultures from that time. Where negative 2. Hypotension Most likely due to sepsis and polypharmacy, blood pressure medications have been dc 3. DM type 2- insulin dependent uncontrolled, Glc still above 325, add long acting insulin 4. ESRD, CKD stage 5 on HD - continue HD 5. Anemia of Chronic disease -transfuse 2 units today History Interval history: Patient has been spiking high fevers, denies chest pain, denies cough, admits to weakness and shortness of breath. Nursing noted that she's been lethargic Hospitalist Physical - Physical exam Narrative exam: General: Lethargic, toxic appearance HEENT: MMM, EOMI cardiac: S1-S2 heard lungs: clear to auscultation, abdomen: soft, nontender, nondistended bowel sounds positive extremities: no edema clubbing or cyanosis Skin: no rash or lesion Neuro: Paraplegic Psych: appropriate behavior and mood, cognition intact - Constitutional Vitals: Temp Pulse Resp BP Pulse Ox 102.5 F H 108 H 20 134/69 100 10/07/16 08:00 10/07/16 10:00 10/07/16 08:00 10/07/16 08:00 10/07/16 10:00 General appearance: Present: no acute distress Results - Labs CBC & Chem 7: 10/07/16 08:23 10/07/16 08:23 Labs: Laboratory Last Values WBC 28.2 K/mm3 (4.5-11.0) H 10/07/16 08:23 RBC 2.66 M/mm3 (3.65-5.03) L 10/07/16 08:23 Hgb 6.7 gm/dl (10.1-14.3) L 10/07/16 08:23 Hct 22.7 % (30.3-42.9) L 10/07/16 08:23 MCV 86 fl (79-97) 10/07/16 08:23 MCH 25 pg (28-32) L 10/07/16 08:23 MCHC 30 % (30-34) 10/07/16 08:23 RDW 17.1 % (13.2-15.2) H 10/07/16 08:23 Plt Count 347 K/mm3 (140-440) 10/07/16 08:23 Lymph % (Auto) 5.6 % (13.4-35.0) L 10/03/16 08:44 [place] % (Auto) 7.9 % (0.0-7.3) H 10/03/16 08:44 Eos % (Auto) 4.6 % (0.0-4.3) H 10/03/16 08:44 Baso % (Auto) 1.4 % (0.0-1.8) 10/03/16 08:44 Lymph # 0.6 K/mm3 (1.2-5.4) L 10/03/16 08:44 [place] # 0.9 K/mm3 (0.0-0.8) H 10/03/16 08:44 Eos # 0.5 K/mm3 (0.0-0.4) H 10/03/16 08:44 Baso # 0.2 K/mm3 (0.0-0.1) H 10/03/16 08:44 Add Manual Diff Complete 10/06/16 14:58 Total Counted 100 10/06/16 14:58 Seg Neutrophils % 80.5 % (40.0-70.0) H 10/03/16 08:44 Seg Neuts % (Manual) 78.0 % (40.0-70.0) H 10/06/16 14:58 Band Neutrophils % 0 % 10/06/16 14:58 Lymphocytes % (Manual) 12.0 % (13.4-35.0) L 10/06/16 14:58 Reactive Lymphs % (Man) 0 % 10/06/16 14:58 Monocytes % (Manual) 9.0 % (0.0-7.3) H 10/06/16 14:58 Eosinophils % (Manual) 1.0 % (0.0-4.3) 10/06/16 14:58 Basophils % (Manual) 0 % (0.0-1.8) 10/06/16 14:58 Metamyelocytes % 0 % 10/06/16 14:58 Myelocytes % 0 % 10/06/16 14:58 Promyelocytes % 0 % 10/06/16 14:58 Blast Cells % 0 % 10/06/16 14:58 Nucleated RBC % Not Reportable 10/06/16 14:58 Seg Neutrophils # 9.0 K/mm3 (1.8-7.7) H 10/03/16 08:44 Seg Neutrophils # Man 18.1 K/mm3 (1.8-7.7) H 10/06/16 14:58 Band Neutrophils # 0.0 K/mm3 10/06/16 14:58 Lymphocytes # (Manual) 2.8 K/mm3 (1.2-5.4) 10/06/16 14:58 Abs React Lymphs (Man) 0.0 K/mm3 10/06/16 14:58 Monocytes # (Manual) 2.1 K/mm3 (0.0-0.8) H 10/06/16 14:58 Eosinophils # (Manual) 0.2 K/mm3 (0.0-0.4) 10/06/16 14:58 Basophils # (Manual) 0.0 K/mm3 (0.0-0.1) 10/06/16 14:58 Metamyelocytes # 0.0 K/mm3 10/06/16 14:58 Myelocytes # 0.0 K/mm3 10/06/16 14:58 Promyelocytes # 0.0 K/mm3 10/06/16 14:58 Blast Cells # 0.0 K/mm3 10/06/16 14:58 WBC Morphology Not Reportable 10/06/16 14:58 Hypersegmented Neuts Not Reportable 10/06/16 14:58 Hyposegmented Neuts Not Reportable 10/06/16 14:58 Hypogranular Neuts Not Reportable 10/06/16 14:58 Smudge Cells Not Reportable 10/06/16 14:58 Toxic Granulation Not Reportable 10/06/16 14:58 Toxic Vacuolation Not Reportable 10/06/16 14:58 Dohle Bodies Not Reportable 10/06/16 14:58 Pelger-Huet Anomaly Not Reportable 10/06/16 14:58 Tiffanie Rods Not Reportable 10/06/16 14:58 Platelet Estimate Consistent w auto 10/06/16 14:58 Clumped Platelets Not Reportable 10/06/16 14:58 Plt Clumps, EDTA Not Reportable 10/06/16 14:58 Large Platelets Few 10/06/16 14:58 Giant Platelets Few 10/06/16 14:58 Platelet Satelliting Not Reportable 10/06/16 14:58 Plt Morphology Comment Not Reportable 10/06/16 14:58 RBC Morphology Normal 10/06/16 14:58 Dimorphic RBCs Not Reportable 10/06/16 14:58 Polychromasia Not Reportable 10/06/16 14:58 Hypochromasia Not Reportable 10/06/16 14:58 Poikilocytosis Not Reportable 10/06/16 14:58 Anisocytosis Not Reportable 10/06/16 14:58 Microcytosis Not Reportable 10/06/16 14:58 Macrocytosis Not Reportable 10/06/16 14:58 Spherocytes Not Reportable 10/06/16 14:58 Pappenheimer Bodies Not Reportable 10/06/16 14:58 Sickle Cells Not Reportable 10/06/16 14:58 Target Cells Not Reportable 10/06/16 14:58 Tear Drop Cells Not Reportable 10/06/16 14:58 Ovalocytes Not Reportable 10/06/16 14:58 Helmet Cells Not Reportable 10/06/16 14:58 [place] Bodies Not Reportable 10/06/16 14:58 [place] Rings Not Reportable 10/06/16 14:58 [place] Cells Not Reportable 10/06/16 14:58 Bite Cells Not Reportable 10/06/16 14:58 Crenated Cell Not Reportable 10/06/16 14:58 Elliptocytes Not Reportable 10/06/16 14:58 Acanthocytes (Spur) Not Reportable 10/06/16 14:58 Rouleaux Not Reportable 10/06/16 14:58 Hemoglobin C Crystals Not Reportable 10/06/16 14:58 Schistocytes Not Reportable 10/06/16 14:58 Malaria parasites Not Reportable 10/06/16 14:58 Angel Bodies Not Reportable 10/06/16 14:58 Hem Pathologist Commnt No 10/06/16 14:58 Sodium 139 mmol/L (137-145) 10/07/16 08:23 Potassium 4.0 mmol/L (3.6-5.0) 10/07/16 08:23 Chloride 96.8 mmol/L (98-107) L 10/07/16 08:23 Carbon Dioxide 23 mmol/L (22-30) 10/07/16 08:23 Anion Gap 23 mmol/L 10/07/16 08:23 BUN 32 mg/dL (7-17) H 10/07/16 08:23 Creatinine 6.6 mg/dL (0.7-1.2) H 10/07/16 08:23 Estimated GFR 9 ml/min 10/07/16 08:23 BUN/Creatinine Ratio 4.84 % 10/07/16 08:23 Glucose 297 mg/dL (65-100) H 10/07/16 08:23 POC Glucose 357 (70-105) H 10/07/16 11:33 Calcium 8.4 mg/dL (8.4-10.2) 10/07/16 08:23 Total Bilirubin < 0.20 mg/dL (0.1-1.2) 10/01/16 05:15 AST 12 units/L (5-40) 10/01/16 05:15 ALT < 5 units/L (7-56) L 10/01/16 05:15 Alkaline Phosphatase 110 units/L (35-129) 10/01/16 05:15 Total Protein 6.8 g/dL (6.3-8.2) 10/01/16 05:15 Albumin 2.6 g/dL (3.9-5) L 10/01/16 05:15 Albumin/Globulin Ratio 0.6 % 10/01/16 05:15 Urine Color Yellow (Yellow) 10/02/16 11:31 Urine Turbidity Turbid (Clear) 10/02/16 11:31 Urine pH 6.0 (5.0-7.0) 10/02/16 11:31 Ur Specific [place] 1.018 (1.003-1.030) 10/02/16 11:31 Urine Protein 100 mg/dl mg/dL (Negative) 10/02/16 11:31 Urine Glucose (UA) Neg mg/dL (Negative) 10/02/16 11:31 Urine Ketones Neg mg/dL (Negative) 10/02/16 11:31 Urine Blood Mod (Negative) 10/02/16 11:31 Urine Nitrite Neg (Negative) 10/02/16 11:31 Urine Bilirubin Neg (Negative) 10/02/16 11:31 Urine Urobilinogen < 2.0 mg/dL (<2.0) 10/02/16 11:31 Ur Leukocyte Esterase Lg (Negative) 10/02/16 11:31 Urine WBC (Auto) > 182.0 /HPF (0.0-6.0) H 10/02/16 11:31 Urine RBC (Auto) 68.0 /HPF (0.0-6.0) 10/02/16 11:31 U Epithel Cells (Auto) 3.0 /HPF (0-13.0) 10/02/16 11:31 Urine Bacteria (Auto) 3+ /HPF (Negative) 10/02/16 11:31
[2016-10-07] MEDS ORDERED: NACL 0.9% 500 ML 500 ML IV NR (16:03)
[2016-10-07] MEDS ORDERED: ZOSYN/NS 4.5GM/100ML 4.5 GM/100 ML VIAL IV SCH (17:00)
[2016-10-07] MEDS: HEPARIN IV PRN (18:21)
[2016-10-07] MEDS: VANCOMYCIN/NS 1 GM/250 ML 1 GM/250 ML BAG IV SCH (18:25)
[2016-10-07] MEDS: ZOSYN/NS 2.25 GM/50ML 2.25 GM/50 ML BAG IV SCH (18:25)
[2016-10-07] MEDS ORDERED: LEVEMIR SUB-Q SCH (21:00)
[2016-10-07] MEDS: DULCOLAX PR SCH ×2 (21:42→22:00)
[2016-10-07] MEDS: ZOCOR PO SCH (21:42)
[2016-10-07] MEDS: SENOKOT PO SCH (21:43)
[2016-10-07] MEDS: FLAGYL PO SCH (21:43)
[2016-10-08] MEDS: ZOSYN/NS 2.25 GM/50ML 2.25 GM/50 ML BAG IV SCH ×3 (02:33→18:25)
[2016-10-08] MEDS: NOVOLOG SUB-Q SCH ×5 (08:31→22:45)
[2016-10-08] MEDS: ASPIRIN PO SCH (08:36)
[2016-10-08] MEDS: KEPPRA PO SCH ×2 (08:36→22:39)
[2016-10-08] MEDS: FLAGYL PO SCH ×2 (08:37→22:43)
[2016-10-08] MEDS: PEPCID PO SCH (08:37)
[2016-10-08] MEDS: THERMAZENE 50 GRAM TP SCH ×2 (08:38→22:00)
[2016-10-08] MEDS: ULTRAM PO PRN ×2 (08:52→17:44)
[2016-10-08] MEDS: HEPARIN SUB-Q SCH ×2 (09:15→22:41)
[2016-10-08 09:22] LABS: Hematocrit 29.8 % (30.3-42.9); Hemoglobin 9.2 gm/dl (10.1-14.3); Mean Corpuscular HGB Conc 31 % (30-34); Mean Corpuscular Hemoglobin 27 pg (28-32); Mean Corpuscular Volume 88 fl (79-97); Platelet Count 326 K/mm3 (140-440); Red Blood Count 3.39 M/mm3 (3.65-5.03); Red Cell Distribution Width 16.5 % (13.2-15.2)
--- NOTE | 2016-10-08 09:26 | XRay Report ---
PORTABLE CHEST INDICATION: Shortness of breath. Patient on dialysis. COMPARISON: 09/27/2016 FINDINGS: Portable, frontal chest radiograph again demonstrates mild cardiomegaly and central catheter tip about the cavoatrial junction. Clear lungs, though inspiration limited. Intact bones. CONCLUSION: No acute chest process with stable cardiomegaly and right-sided central catheter, as described. Thank you for the opportunity to participate in this patient's care.
[2016-10-08 09:27] LABS: White Blood Count 28.4 K/mm3 (4.5-11.0)
[2016-10-08 09:39] LABS: BUN/Creatinine Ratio 5.22; Calcium 8.3 mg/dL (8.4-10.2); Potassium 3.4 mmol/L (3.6-5.0)
[2016-10-08] MEDS: NYSTOP TP SCH ×2 (14:19→22:00)
[2016-10-08] MEDS ORDERED: LEVEMIR SUB-Q SCH (17:12)
--- NOTE | 2016-10-08 17:13 | Progress Note ---
Assessment and Plan Assessment and plan: 36-year-old woman status post thoracic cord infarction and acute CVA who is now paraplegic in acute rehabilitation for aggressive rehabilitation. Medicine consulted for management of hypotension and presumed sepsis. 1. Severe sepsis, septic shock with hypotension On Levaquin and vanc, add Zosyn -BP improved with IVF resuscitation and prbc Continue sepsis pathway, she does have Gardnerella vaginalis UTI, continue metronidazole 7 days, day 2 of 7 chest x-ray was negative for pneumonia on 10/07, follow-up blood cultures from 10/06 and 10/07 Continue empiric antibiotics in the meantime, please consider ID consult (Dr Ogden) Also notes there was a vegetation seen on permacath which was exchanged on however blood cultures from that time were negative 2. Hypotension Most likely due to sepsis and polypharmacy, blood pressure medications have been dc, BP now impoved after resuscitation 3. DM type 2- insulin dependent uncontrolled, Glc still above 325, increase levemir dose 4. ESRD, CKD stage 5 on HD - continue HD 5. Anemia of Chronic disease -Status post transfusion with appropriate rise in hemoglobin 6. Depression if patient is agreeable, she may benefit from Psychiatry evaluation History Interval history: She states that she feels much better today, denies cough, shortness of breath has now resolved. Denies fever, she feels that she is improving. Hospitalist Physical - Physical exam Narrative exam: General: Lethargic, appears better HEENT: MMM, EOMI cardiac: S1-S2 heard lungs: clear to auscultation, abdomen: soft, nontender, nondistended bowel sounds positive extremities: no edema clubbing or cyanosis Skin: no rash or lesion Neuro: Paraplegic Psych: depressed mood, cognition intact - Constitutional Vitals: Temp Pulse Resp BP Pulse Ox 98.0 F 86 20 147/74 98 10/08/16 16:00 10/08/16 16:00 10/08/16 16:00 10/08/16 16:00 10/08/16 16:00 General appearance: Present: no acute distress Results - Labs CBC & Chem 7: 10/08/16 09:05 10/08/16 09:05 Labs: Laboratory Last Values WBC 28.4 K/mm3 (4.5-11.0) H 10/08/16 09:05 RBC 3.39 M/mm3 (3.65-5.03) L 10/08/16 09:05 Hgb 9.2 gm/dl (10.1-14.3) L 10/08/16 09:05 Hct 29.8 % (30.3-42.9) L D 10/08/16 09:05 MCV 88 fl (79-97) 10/08/16 09:05 MCH 27 pg (28-32) L 10/08/16 09:05 MCHC 31 % (30-34) 10/08/16 09:05 RDW 16.5 % (13.2-15.2) H 10/08/16 09:05 Plt Count 326 K/mm3 (140-440) 10/08/16 09:05 Lymph % (Auto) 5.6 % (13.4-35.0) L 10/03/16 08:44 [place] % (Auto) 7.9 % (0.0-7.3) H 10/03/16 08:44 Eos % (Auto) 4.6 % (0.0-4.3) H 10/03/16 08:44 Baso % (Auto) 1.4 % (0.0-1.8) 10/03/16 08:44 Lymph # 0.6 K/mm3 (1.2-5.4) L 10/03/16 08:44 [place] # 0.9 K/mm3 (0.0-0.8) H 10/03/16 08:44 Eos # 0.5 K/mm3 (0.0-0.4) H 10/03/16 08:44 Baso # 0.2 K/mm3 (0.0-0.1) H 10/03/16 08:44 Add Manual Diff Complete 10/06/16 14:58 Total Counted 100 10/06/16 14:58 Seg Neutrophils % 80.5 % (40.0-70.0) H 10/03/16 08:44 Seg Neuts % (Manual) 78.0 % (40.0-70.0) H 10/06/16 14:58 Band Neutrophils % 0 % 10/06/16 14:58 Lymphocytes % (Manual) 12.0 % (13.4-35.0) L 10/06/16 14:58 Reactive Lymphs % (Man) 0 % 05/09/17 14:58 Monocytes % (Manual) 9.0 % (0.0-7.3) H 10/06/16 14:58 Eosinophils % (Manual) 1.0 % (0.0-4.3) 10/06/16 14:58 Basophils % (Manual) 0 % (0.0-1.8) 10/06/16 14:58 Metamyelocytes % 0 % 10/06/16 14:58 Myelocytes % 0 % 10/06/16 14:58 Promyelocytes % 0 % 10/06/16 14:58 Blast Cells % 0 % 10/06/16 14:58 Nucleated RBC % Not Reportable 10/06/16 14:58 Seg Neutrophils # 9.0 K/mm3 (1.8-7.7) H 10/03/16 08:44 Seg Neutrophils # Man 18.1 K/mm3 (1.8-7.7) H 10/06/16 14:58 Band Neutrophils # 0.0 K/mm3 10/06/16 14:58 Lymphocytes # (Manual) 2.8 K/mm3 (1.2-5.4) 10/06/16 14:58 Abs React Lymphs (Man) 0.0 K/mm3 10/06/16 14:58 Monocytes # (Manual) 2.1 K/mm3 (0.0-0.8) H 10/06/16 14:58 Eosinophils # (Manual) 0.2 K/mm3 (0.0-0.4) 10/06/16 14:58 Basophils # (Manual) 0.0 K/mm3 (0.0-0.1) 10/06/16 14:58 Metamyelocytes # 0.0 K/mm3 10/06/16 14:58 Myelocytes # 0.0 K/mm3 10/06/16 14:58 Promyelocytes # 0.0 K/mm3 10/06/16 14:58 Blast Cells # 0.0 K/mm3 10/06/16 14:58 WBC Morphology Not Reportable 10/06/16 14:58 Hypersegmented Neuts Not Reportable 10/06/16 14:58 Hyposegmented Neuts Not Reportable 10/06/16 14:58 Hypogranular Neuts Not Reportable 10/06/16 14:58 Smudge Cells Not Reportable 10/06/16 14:58 Toxic Granulation Not Reportable 10/06/16 14:58 Toxic Vacuolation Not Reportable 10/06/16 14:58 Dohle Bodies Not Reportable 10/06/16 14:58 Pelger-Huet Anomaly Not Reportable 10/06/16 14:58 Tiffanie Rods Not Reportable 10/06/16 14:58 Platelet Estimate Consistent w auto 10/06/16 14:58 Clumped Platelets Not Reportable 10/06/16 14:58 Plt Clumps, EDTA Not Reportable 10/06/16 14:58 Large Platelets Few 10/06/16 14:58 Giant Platelets Few 10/06/16 14:58 Platelet Satelliting Not Reportable 10/06/16 14:58 Plt Morphology Comment Not Reportable 10/06/16 14:58 RBC Morphology Normal 10/06/16 14:58 Dimorphic RBCs Not Reportable 10/06/16 14:58 Polychromasia Not Reportable 10/06/16 14:58 Hypochromasia Not Reportable 10/06/16 14:58 Poikilocytosis Not Reportable 10/06/16 14:58 Anisocytosis Not Reportable 10/06/16 14:58 Microcytosis Not Reportable 10/06/16 14:58 Macrocytosis Not Reportable 10/06/16 14:58 Spherocytes Not Reportable 10/06/16 14:58 Pappenheimer Bodies Not Reportable 10/06/16 14:58 Sickle Cells Not Reportable 10/06/16 14:58 Target Cells Not Reportable 10/06/16 14:58 Tear Drop Cells Not Reportable 10/06/16 14:58 Ovalocytes Not Reportable 10/06/16 14:58 Helmet Cells Not Reportable 10/06/16 14:58 [place] Bodies Not Reportable 10/06/16 14:58 [place] Rings Not Reportable 10/06/16 14:58 [place] Cells Not Reportable 10/06/16 14:58 Bite Cells Not Reportable 10/06/16 14:58 Crenated Cell Not Reportable 10/06/16 14:58 Elliptocytes Not Reportable 10/06/16 14:58 Acanthocytes (Spur) Not Reportable 10/06/16 14:58 Rouleaux Not Reportable 10/06/16 14:58 Hemoglobin C Crystals Not Reportable 10/06/16 14:58 Schistocytes Not Reportable 10/06/16 14:58 Malaria parasites Not Reportable 10/06/16 14:58 Angel Bodies Not Reportable 10/06/16 14:58 Hem Pathologist Commnt No 10/06/16 14:58 Sodium 139 mmol/L (137-145) 10/08/16 09:05 Potassium 3.4 mmol/L (3.6-5.0) L 10/08/16 09:05 Chloride 95.0 mmol/L (98-107) L 10/08/16 09:05 Carbon Dioxide 26 mmol/L (22-30) 10/08/16 09:05 Anion Gap 21 mmol/L 10/08/16 09:05 BUN 23 mg/dL (7-17) H 10/08/16 09:05 Creatinine 4.4 mg/dL (0.7-1.2) H 10/08/16 09:05 Estimated GFR 14 ml/min 10/08/16 09:05 BUN/Creatinine Ratio 5.22 % 10/08/16 09:05 Glucose 298 mg/dL (65-100) H 10/08/16 09:05 POC Glucose 344 (70-105) H 10/08/16 16:12 Calcium 8.3 mg/dL (8.4-10.2) L 10/08/16 09:05 Total Bilirubin < 0.20 mg/dL (0.1-1.2) 10/01/16 05:15 AST 12 units/L (5-40) 10/01/16 05:15 ALT < 5 units/L (7-56) L 10/01/16 05:15 Alkaline Phosphatase 110 units/L (35-129) 10/01/16 05:15 Total Protein 6.8 g/dL (6.3-8.2) 10/01/16 05:15 Albumin 2.6 g/dL (3.9-5) L 10/01/16 05:15 Albumin/Globulin Ratio 0.6 % 10/01/16 05:15 Urine Color Yellow (Yellow) 10/02/16 11:31 Urine Turbidity Turbid (Clear) 10/02/16 11:31 Urine pH 6.0 (5.0-7.0) 10/02/16 11:31 Ur Specific [place] 1.018 (1.003-1.030) 10/02/16 11:31 Urine Protein 100 mg/dl mg/dL (Negative) 10/02/16 11:31 Urine Glucose (UA) Neg mg/dL (Negative) 10/02/16 11:31 Urine Ketones Neg mg/dL (Negative) 10/02/16 11:31 Urine Blood Mod (Negative) 10/02/16 11:31 Urine Nitrite Neg (Negative) 10/02/16 11:31 Urine Bilirubin Neg (Negative) 10/02/16 11:31 Urine Urobilinogen < 2.0 mg/dL (<2.0) 10/02/16 11:31 Ur Leukocyte Esterase Lg (Negative) 10/02/16 11:31 Urine WBC (Auto) > 182.0 /HPF (0.0-6.0) H 10/02/16 11:31 Urine RBC (Auto) 68.0 /HPF (0.0-6.0) 10/02/16 11:31 U Epithel Cells (Auto) 3.0 /HPF (0-13.0) 10/02/16 11:31 Urine Bacteria (Auto) 3+ /HPF (Negative) 10/02/16 11:31 Blood Type O POSITIVE 10/07/16 14:20 Antibody Screen TNR 10/07/16 14:20 SHAHEED Antibody Screen Negative 10/07/16 14:20 Crossmatch See Detail 10/07/16 14:20
--- NOTE | 2016-10-08 17:37 | Progress Note ---
Assessment and Plan 36 y.o. female s/p intractable status epilepticus on presentation; s/p acute respiratory failure requiring intubation, acute metabolic encephalopathy, GN bacteremia, +E.Faecalis in urine, hypokalemia, left arm cellulitis. Pt later noted to have acute CVA at anterior corpus callosum and left parietal periventricular white matter, subacute bilateral parietal lobe infarcts, and acute onset of BLE numbness and paralysis thought to be secondary to thoracic cord infarction from hypotension; also with mobile vegetation on permacath wire in right atrium; permacath replaced/resolved on 09/29 - thoracic cord infarction- bowel/bladder management; bladder scans Q4hr, straight cath for >350cc; Q2 hour toileting while awake; pressure relief; Q2 hour turning schedule when in bed; float heels when in bed - daily wound care; ongoing wound care for sacral breakdown - fever- sepsis workup in progress; blood cultures pending; on broad spectrum ABX; possible ID consult if positive; IM following - acute CVA at anterior corpus callosum and left parietal periventricular white matter; subacute bilateral parietal lobe infarcts- ASA, statin - seizure disorder- keppra; seizure precautions - HTN- BP stable off meds - DM- levemir started due to elevated blood sugars despite decreased po intake; follow closely to avoid hypoglycemia - ESRD- on HD, MWF; Nephrology following - anemia due to ESRD- s/p transfusion with improved H/H; procrit - DVT px- heparin - therapies resumed on today; biggest barrier is pt's motivation - Patient Problems (1) Spinal cord infarction Current Visit: No Status: Acute (2) CVA (cerebral vascular accident) Current Visit: Yes Status: Acute Qualifiers: CVA mechanism: other Precerebral and cerebral artery: P Laterality of affected vessel: L Qualified Code(s): I63.8 - Other cerebral infarction (3) Seizure Current Visit: No Status: Acute (4) Diabetes Current Visit: Yes Status: Chronic Qualifiers: Diabetes mellitus type: type 2 Diabetes mellitus complication status: with hyperglycemia Diabetes mellitus complication detail: D Diabetic retinopathy severity: D Proliferative retinopathy type: P Diabetes mellitus macular edema: D Diabetes mellitus care home insulin use: with care home use Laterality: L Chronic kidney disease stage: C Qualified Code(s): E11.65 - Type 2 diabetes mellitus with hyperglycemia; Z79.4 - joint terminal attack controller (current) use of insulin (5) HTN (hypertension) Current Visit: Yes Status: Acute Qualifiers: Hypertension type: essential hypertension Qualified Code(s): I10 - Essential (primary) hypertension (6) ESRD on hemodialysis Current Visit: Yes Status: Chronic (7) Anemia in ESRD (end-stage renal disease) Current Visit: Yes Status: Chronic Subjective Date of service: 10/08/16 Principal diagnosis: thoracic cord infarction Interval history: Pt seen in room this AM, F/U IPR course, s/p thoracic cord infarction and acute CVAs. Remains responsive; pt heavily educated on need to participate more. She did admit to being depressed about recent acute health decline; will consider [facility] consult if patient agrees Objective - Constitutional Vitals: Vital Signs - 12hr 10/08/16 10/08/16 10/08/16 07:06 10:00 16:00 Temperature 97.9 F 98.0 F Pulse Rate [ 98 H 86 Right Radial] Respiratory 20 20 Rate Blood Pressure 147/76 147/74 [Right Arm] O2 Sat by Pulse 100 100 98 Oximetry General appearance: Present: no acute distress, obese - EENT Eyes: EOM intact ENT: hearing intact - Neck Neck: supple - Respiratory Respiratory effort: normal Extremities: No edema Extremity abnormal: other (TEDs in place) - Gastrointestinal General gastrointestinal: Present: soft, non-tender - Neurologic Neurologic: other (BLE paralysis; no tone/spasticity in extremities) - Psychiatric Psychiatric: cooperative (flat affect), depressed - Allied health notes Allied health notes reviewed: PT (total to maxA for transfers and bed mobility) , OT (modA for exercises and wheelchair mobility) - Labs CBC & Chem 7: 10/08/16 09:05 10/08/16 09:05 Labs: Abnormal lab results 10/07/16 10/07/16 10/07/16 Range/Units 14:20 18:37 21:43 WBC (4.5-11.0) K/mm3 RBC (3.65-5.03) M/mm3 Hgb (10.1-14.3) gm/dl Hct (30.3-42.9) % MCH (28-32) pg RDW (13.2-15.2) % Potassium (3.6-5.0) mmol/L Chloride (98-107) mmol/L BUN (7-17) mg/dL Creatinine (0.7-1.2) mg/dL Glucose (65-100) mg/dL POC Glucose 280 H 316 H (70-105) Calcium (8.4-10.2) mg/dL Crossmatch See Detail 10/08/16 10/08/16 10/08/16 Range/Units 05:57 09:05 09:05 WBC 28.4 H (4.5-11.0) K/mm3 RBC 3.39 L (3.65-5.03) M/mm3 Hgb 9.2 L (10.1-14.3) gm/dl Hct 29.8 L D (30.3-42.9) % MCH 27 L (28-32) pg RDW 16.5 H (13.2-15.2) % Potassium 3.4 L (3.6-5.0) mmol/L Chloride 95.0 L (98-107) mmol/L BUN 23 H (7-17) mg/dL Creatinine 4.4 H (0.7-1.2) mg/dL Glucose 298 H (65-100) mg/dL POC Glucose 317 H (70-105) Calcium 8.3 L (8.4-10.2) mg/dL Crossmatch 10/08/16 10/08/16 Range/Units 11:42 16:12 WBC (4.5-11.0) K/mm3 RBC (3.65-5.03) M/mm3 Hgb (10.1-14.3) gm/dl Hct (30.3-42.9) % MCH (28-32) pg RDW (13.2-15.2) % Potassium (3.6-5.0) mmol/L Chloride (98-107) mmol/L BUN (7-17) mg/dL Creatinine (0.7-1.2) mg/dL Glucose (65-100) mg/dL POC Glucose 307 H 344 H (70-105) Calcium (8.4-10.2) mg/dL Crossmatch
[2016-10-08] MEDS ORDERED: VANCOMYCIN/NS 1 GM/250 ML 1 GM/250 ML BAG IV SCH (18:00)
[2016-10-08] MEDS: LEVAQUIN 500MG/100ML 500 MG/100 ML BAG IV SCH (19:09)
--- NOTE | 2016-10-08 21:50 | Progress Note ---
Assessment and Plan Assessment: * End stage renal disease * Hypotension - ?iatrogenic 2/2 antiHTN medications vs infectious process * Fever r/o bacteremia * Status post Hyperglycemic hyperosmolar nonketotic coma * Status post hypoxemic respiratory failure * Catheter associated bacteremia --Blood cx 09/05: coag negative staph * Permcath w/ mobile vegetation --PermCath was exchanged on 09/29/2016 * Thoracic spinal cord infarction * Seizure * Anemia secondary to ESRD * Hx of enterococcal UTI (cx 09/08) Plan: * Continue MWF schedule - UF as tolerated * AntiHTN medications on hold * Await pending cultures results * Continue Vanco/Levaquin * Consider ID consult * Dose medications for renal function * Epogen with dialysis * Guaiac stools Subjective Date of service: 10/08/16 Principal diagnosis: thoracic cord infarction Interval history: Patient without complaint Objective - Vital Signs Vital signs: Vital Signs - 12hr 10/08/16 10/08/16 10/08/16 10:00 16:00 21:15 Temperature 98.0 F 100.3 F H Pulse Rate [ 85 Left Brachial] Pulse Rate [ 86 Right Radial] Respiratory 20 20 Rate Blood Pressure 147/74 151/81 [Right Arm] O2 Sat by Pulse 100 98 100 Oximetry - General Appearance General appearance: well-developed, well-nourished EENT: ATNC Respiratory: Present: Clear to Ascultation Cardiology: regular, S1S2 Gastrointestinal: normal, no tenderness, no distended Integumentary: no rash Musculoskeletal: other (no edema) Psychiatric: cooperative - Lab 10/08/16 09:05 10/08/16 09:05 Most recent lab results Calcium 8.3 mg/dL (8.4-10.2) L 10/08/16 09:05
[2016-10-08] MEDS: ZOCOR PO SCH (22:40)
[2016-10-08] MEDS: SENOKOT PO SCH (22:40)
[2016-10-08] MEDS: TYLENOL PO PRN (22:45)
[2016-10-09] MEDS: ZOSYN/NS 2.25 GM/50ML 2.25 GM/50 ML BAG IV SCH ×3 (02:45→19:00)
[2016-10-09] MEDS: NOVOLOG SUB-Q SCH ×5 (07:30→22:50)
[2016-10-09 08:00] LABS: Hematocrit 28.8 % (30.3-42.9); Hemoglobin 9.1 gm/dl (10.1-14.3); Mean Corpuscular HGB Conc 32 % (30-34); Mean Corpuscular Hemoglobin 27 pg (28-32); Mean Corpuscular Volume 85 fl (79-97); Platelet Count 325 K/mm3 (140-440); Red Blood Count 3.38 M/mm3 (3.65-5.03); Red Cell Distribution Width 16.6 % (13.2-15.2)
[2016-10-09 08:14] LABS: White Blood Count 24.6 K/mm3 (4.5-11.0)
[2016-10-09 08:28] LABS: BUN/Creatinine Ratio 5.08; Calcium 8.7 mg/dL (8.4-10.2); Chloride 98.4 mmol/L (98-107); Potassium 3.6 mmol/L (3.6-5.0)
--- NOTE | 2016-10-09 08:51 | Progress Note ---
Assessment and Plan Assessment: * End stage renal disease * Hypotension - ?iatrogenic 2/2 antiHTN medications vs infectious process * Fever r/o bacteremia * Status post Hyperglycemic hyperosmolar nonketotic coma * Status post hypoxemic respiratory failure * Catheter associated bacteremia --Blood cx 09/05: coag negative staph * Permcath w/ mobile vegetation --PermCath was exchanged on 09/29/2016 * Thoracic spinal cord infarction * Seizure * Anemia secondary to ESRD --Heme occult negative * Hx of enterococcal UTI (cx 09/08) Plan: * Continue MWF schedule - UF as tolerated * AntiHTN medications on hold - continue to monitor BP for now * Continue Vanco/Levaquin * Consider ID consult * Dose medications for renal function * Epogen with dialysis Subjective Date of service: 10/09/16 Principal diagnosis: thoracic cord infarction Interval history: Patient has no complaints today. Objective - Vital Signs Vital signs: Vital Signs - 12hr 10/08/16 10/08/16 10/09/16 21:15 22:00 07:20 Temperature 100.3 F H 97.6 F Pulse Rate [ 85 80 Left Brachial] Respiratory 20 20 18 Rate Blood Pressure 147/76 [Left Arm] Blood Pressure 151/81 [Right Arm] O2 Sat by Pulse 100 100 100 Oximetry - General Appearance General appearance: well-developed, well-nourished EENT: ATNC Respiratory: Present: Clear to Ascultation Cardiology: regular, S1S2 Gastrointestinal: normal Integumentary: no rash Musculoskeletal: other (trace edema) Psychiatric: cooperative - Lab 10/09/16 07:35 10/09/16 07:35 Most recent lab results Calcium 8.7 mg/dL (8.4-10.2) 10/09/16 07:35
[2016-10-09] MEDS: TYLENOL PO PRN ×2 (09:31→19:15)
[2016-10-09] MEDS: PEPCID PO SCH (09:32)
[2016-10-09] MEDS: FLAGYL PO SCH ×2 (09:32→22:51)
[2016-10-09] MEDS: ASPIRIN PO SCH (09:32)
[2016-10-09] MEDS: KEPPRA PO SCH ×2 (09:32→22:51)
[2016-10-09] MEDS: THERMAZENE 50 GRAM TP SCH ×2 (09:34→23:07)
[2016-10-09] MEDS: NYSTOP TP SCH ×2 (09:34→23:07)
[2016-10-09] MEDS: HEPARIN SUB-Q SCH ×2 (09:35→22:51)
[2016-10-09 10:10] LABS: Anisocytosis 1+; Basophils % (Manual) 0 % (0.0-1.8); Blastocytes % (Manual) 0 %; Polychromasia Rare; Target Cells Few
[2016-10-09 10:11] LABS: Diff Status Complete; Platelet Estimate Cons
--- NOTE | 2016-10-09 14:05 | Progress Note ---
Assessment and Plan 36 y.o. female s/p intractable status epilepticus on presentation; s/p acute respiratory failure requiring intubation, acute metabolic encephalopathy, GN bacteremia, +E.Faecalis in urine, hypokalemia, left arm cellulitis. Pt later noted to have acute CVA at anterior corpus callosum and left parietal periventricular white matter, subacute bilateral parietal lobe infarcts, and acute onset of BLE numbness and paralysis thought to be secondary to thoracic cord infarction from hypotension; also with mobile vegetation on permacath wire in right atrium; permacath replaced/resolved on 09/29 - thoracic cord infarction- bowel/bladder management; bladder scans Q4hr, straight cath for >350cc; Q2 hour toileting while awake; pressure relief; Q2 hour turning schedule when in bed; float heels when in bed - daily wound care; ongoing wound care for sacral breakdown - sepsis- blood cultures NGTD; remains on broad spectrum ABX with decreasing leukocytosis; will ask ID to see for further recommendations on ABX - acute CVA at anterior corpus callosum and left parietal periventricular white matter; subacute bilateral parietal lobe infarcts- ASA, statin - seizure disorder- keppra; seizure precautions - HTN- BP remains stable off meds - DM- continue levemir with SSI; improve po intake - ESRD- on HD, MWF; Nephrology following - anemia due to ESRD- s/p 2U pRBCs on 10/07; H/H stable - DVT px- heparin - Patient Problems (1) Spinal cord infarction Current Visit: No Status: Acute (2) CVA (cerebral vascular accident) Current Visit: Yes Status: Acute Qualifiers: CVA mechanism: other Precerebral and cerebral artery: P Laterality of affected vessel: L Qualified Code(s): I63.8 - Other cerebral infarction (3) Seizure Current Visit: No Status: Acute (4) Diabetes Current Visit: Yes Status: Chronic Qualifiers: Diabetes mellitus type: type 2 Diabetes mellitus complication status: with hyperglycemia Diabetes mellitus complication detail: D Diabetic retinopathy severity: D Proliferative retinopathy type: P Diabetes mellitus macular edema: D Diabetes mellitus senior living insulin use: with senior living use Laterality: L Chronic kidney disease stage: C Qualified Code(s): E11.65 - Type 2 diabetes mellitus with hyperglycemia; Z79.4 - longterm (current) use of insulin (5) HTN (hypertension) Current Visit: Yes Status: Acute Qualifiers: Hypertension type: essential hypertension Qualified Code(s): I10 - Essential (primary) hypertension (6) ESRD on hemodialysis Current Visit: Yes Status: Chronic (7) Anemia in ESRD (end-stage renal disease) Current Visit: Yes Status: Chronic Subjective Date of service: 10/09/16 Principal diagnosis: thoracic cord infarction Interval history: Pt seen in room this AM and also in OT gym this afternoon, F/U IPR course, s/p thoracic cord infarction and acute CVAs. Pt ate breakfast well, 100%. C/O back pain in gym when seen; trial of Biofreeze, pt reports drowsiness with tramadol Objective - Constitutional Vitals: Vital Signs - 12hr 10/09/16 10/09/16 07:20 10:00 Temperature 97.6 F Pulse Rate [ 80 Left Brachial] Respiratory 18 20 Rate Blood Pressure 147/76 [Left Arm] O2 Sat by Pulse 100 100 Oximetry General appearance: Present: mild distress (back pain), obese - EENT Eyes: EOM intact ENT: hearing intact - Neck Neck: supple, normal ROM - Respiratory Respiratory effort: normal Extremities: No edema Extremity abnormal: other (TEDs in place; no active movement; no tone/ spasticity noted with PROM) - Gastrointestinal General gastrointestinal: Present: soft, non-tender - Neurologic Neurologic: CNII-XII intact, other (still without active movement or sensation in BLE) - Psychiatric Psychiatric: appropriate mood/affect, cooperative - Allied health notes Allied health notes reviewed: nursing (Ananya for UB dressing; totalA for bathing) - Labs CBC & Chem 7: 10/09/16 07:35 10/09/16 07:35 Labs: Abnormal lab results 10/07/16 10/08/16 10/08/16 Range/Units 14:20 16:12 21:47 WBC (4.5-11.0) K/mm3 RBC (3.65-5.03) M/mm3 Hgb (10.1-14.3) gm/dl Hct (30.3-42.9) % MCH (28-32) pg RDW (13.2-15.2) % Seg Neuts % (Manual) (40.0-70.0) % Lymphocytes % (Manual) (13.4-35.0) % Eosinophils % (Manual) (0.0-4.3) % Seg Neutrophils # Man (1.8-7.7) K/mm3 Eosinophils # (Manual) (0.0-0.4) K/mm3 BUN (7-17) mg/dL Creatinine (0.7-1.2) mg/dL Glucose (65-100) mg/dL POC Glucose 344 H 207 H (70-105) Crossmatch See Detail 10/09/16 10/09/16 10/09/16 Range/Units 06:54 07:35 07:35 WBC 24.6 H (4.5-11.0) K/mm3 RBC 3.38 L (3.65-5.03) M/mm3 Hgb 9.1 L (10.1-14.3) gm/dl Hct 28.8 L (30.3-42.9) % MCH 27 L (28-32) pg RDW 16.6 H (13.2-15.2) % Seg Neuts % (Manual) 82.0 H (40.0-70.0) % Lymphocytes % (Manual) 6.0 L (13.4-35.0) % Eosinophils % (Manual) 8.0 H (0.0-4.3) % Seg Neutrophils # Man 20.2 H (1.8-7.7) K/mm3 Eosinophils # (Manual) 2.0 H (0.0-0.4) K/mm3 BUN 29 H (7-17) mg/dL Creatinine 5.7 H (0.7-1.2) mg/dL Glucose 138 H (65-100) mg/dL POC Glucose 148 H (70-105) Crossmatch 10/09/16 Range/Units 13:07 WBC (4.5-11.0) K/mm3 RBC (3.65-5.03) M/mm3 Hgb (10.1-14.3) gm/dl Hct (30.3-42.9) % MCH (28-32) pg RDW (13.2-15.2) % Seg Neuts % (Manual) (40.0-70.0) % Lymphocytes % (Manual) (13.4-35.0) % Eosinophils % (Manual) (0.0-4.3) % Seg Neutrophils # Man (1.8-7.7) K/mm3 Eosinophils # (Manual) (0.0-0.4) K/mm3 BUN (7-17) mg/dL Creatinine (0.7-1.2) mg/dL Glucose (65-100) mg/dL POC Glucose 249 H (70-105) Crossmatch
[2016-10-09] MEDS ORDERED: LEVEMIR SUB-Q SCH (14:19)
--- NOTE | 2016-10-09 14:20 | Progress Note ---
Assessment and Plan Assessment and plan: 36-year-old woman status post thoracic cord infarction and acute CVA who is now paraplegic in acute rehabilitation for aggressive rehabilitation. Medicine consulted for management of hypotension and presumed sepsis. 1. Severe sepsis, septic shock with hypotension On Levaquin and vanc, add Zosyn -BP improved with IVF resuscitation and prbc Continue sepsis pathway, she does have Gardnerella vaginalis UTI, continue metronidazole 7 days, day 2 of 7 chest x-ray was negative for pneumonia on 10/07, follow-up blood cultures from 10/06 and 10/07, NGTD Continue empiric antibiotics in the meantime, please consider ID consult (Dr Ogden) Also notes there was a vegetation seen on permacath which was exchanged on however blood cultures from that time were negative 2. Hypotension Most likely due to sepsis and polypharmacy, blood pressure medications have been dc, BP now impoved after resuscitation with IVF and PRBC transfusion 3. DM type 2- insulin dependent Better controlled today, increased dose of Levemir, and add pre-meal insulin, continue sliding scale 4. ESRD, CKD stage 5 on HD - continue HD 5. Anemia of Chronic disease -Status post transfusion with appropriate rise in hemoglobin 6. Depression if patient is agreeable, she may benefit from Psychiatry evaluation History Interval history: She states that she feels much better today, denies cough, shortness of breath has now resolved. Denies fever, she feels that she is improving. Hospitalist Physical - Physical exam Narrative exam: General: Lethargic, appears better HEENT: MMM, EOMI cardiac: S1-S2 heard lungs: clear to auscultation, abdomen: soft, nontender, nondistended bowel sounds positive extremities: no edema clubbing or cyanosis Skin: no rash or lesion Neuro: Paraplegic Psych: depressed mood, cognition intact - Constitutional Vitals: Temp Pulse Resp BP Pulse Ox 97.6 F 80 20 147/76 100 10/09/16 07:20 10/09/16 07:20 10/09/16 10:00 10/09/16 07:20 10/09/16 10:00 General appearance: Present: mild distress (back pain), obese Results - Labs CBC & Chem 7: 10/09/16 07:35 10/09/16 07:35 Labs: Laboratory Last Values WBC 24.6 K/mm3 (4.5-11.0) H 10/09/16 07:35 RBC 3.38 M/mm3 (3.65-5.03) L 10/09/16 07:35 Hgb 9.1 gm/dl (10.1-14.3) L 10/09/16 07:35 Hct 28.8 % (30.3-42.9) L 10/09/16 07:35 MCV 85 fl (79-97) D 10/09/16 07:35 MCH 27 pg (28-32) L 10/09/16 07:35 MCHC 32 % (30-34) 10/09/16 07:35 RDW 16.6 % (13.2-15.2) H 10/09/16 07:35 Plt Count 325 K/mm3 (140-440) 10/09/16 07:35 Lymph % (Auto) 5.6 % (13.4-35.0) L 10/03/16 08:44 [place] % (Auto) 7.9 % (0.0-7.3) H 10/03/16 08:44 Eos % (Auto) 4.6 % (0.0-4.3) H 10/03/16 08:44 Baso % (Auto) 1.4 % (0.0-1.8) 10/03/16 08:44 Lymph # 0.6 K/mm3 (1.2-5.4) L 10/03/16 08:44 [place] # 0.9 K/mm3 (0.0-0.8) H 10/03/16 08:44 Eos # 0.5 K/mm3 (0.0-0.4) H 10/03/16 08:44 Baso # 0.2 K/mm3 (0.0-0.1) H 10/03/16 08:44 Add Manual Diff Complete 10/09/16 07:35 Total Counted 100 10/09/16 07:35 Seg Neutrophils % 80.5 % (40.0-70.0) H 10/03/16 08:44 Seg Neuts % (Manual) 82.0 % (40.0-70.0) H 10/09/16 07:35 Band Neutrophils % 1.0 % 10/09/16 07:35 Lymphocytes % (Manual) 6.0 % (13.4-35.0) L 10/09/16 07:35 Reactive Lymphs % (Man) 0 % 10/09/16 07:35 Monocytes % (Manual) 2.0 % (0.0-7.3) 10/09/16 07:35 Eosinophils % (Manual) 8.0 % (0.0-4.3) H 10/09/16 07:35 Basophils % (Manual) 0 % (0.0-1.8) 10/09/16 07:35 Metamyelocytes % 1.0 % 10/09/16 07:35 Myelocytes % 0 % 10/09/16 07:35 Promyelocytes % 0 % 10/09/16 07:35 Blast Cells % 0 % 10/09/16 07:35 Nucleated RBC % Not Reportable 10/09/16 07:35 Seg Neutrophils # 9.0 K/mm3 (1.8-7.7) H 10/03/16 08:44 Seg Neutrophils # Man 20.2 K/mm3 (1.8-7.7) H 10/09/16 07:35 Band Neutrophils # 0.2 K/mm3 10/09/16 07:35 Lymphocytes # (Manual) 1.5 K/mm3 (1.2-5.4) 10/09/16 07:35 Abs React Lymphs (Man) 0.0 K/mm3 10/09/16 07:35 Monocytes # (Manual) 0.5 K/mm3 (0.0-0.8) 10/09/16 07:35 Eosinophils # (Manual) 2.0 K/mm3 (0.0-0.4) H 10/09/16 07:35 Basophils # (Manual) 0.0 K/mm3 (0.0-0.1) 10/09/16 07:35 Metamyelocytes # 0.2 K/mm3 10/09/16 07:35 Myelocytes # 0.0 K/mm3 10/09/16 07:35 Promyelocytes # 0.0 K/mm3 10/09/16 07:35 Blast Cells # 0.0 K/mm3 10/09/16 07:35 WBC Morphology Not Reportable 10/09/16 07:35 Hypersegmented Neuts Not Reportable 10/09/16 07:35 Hyposegmented Neuts Not Reportable 10/09/16 07:35 Hypogranular Neuts Not Reportable 10/09/16 07:35 Smudge Cells Not Reportable 10/09/16 07:35 Toxic Granulation Not Reportable 10/09/16 07:35 Toxic Vacuolation Not Reportable 10/09/16 07:35 Dohle Bodies Not Reportable 10/09/16 07:35 Pelger-Huet Anomaly Not Reportable 10/09/16 07:35 Tiffanie Rods Not Reportable 10/09/16 07:35 Platelet Estimate Cons 10/09/16 07:35 Clumped Platelets Not Reportable 10/09/16 07:35 Plt Clumps, EDTA Not Reportable 10/09/16 07:35 Large Platelets Not Reportable 10/09/16 07:35 Giant Platelets Not Reportable 10/09/16 07:35 Platelet Satelliting Not Reportable 10/09/16 07:35 Plt Morphology Comment Not Reportable 10/09/16 07:35 RBC Morphology Not Reportable 10/09/16 07:35 Dimorphic RBCs Not Reportable 10/09/16 07:35 Polychromasia Rare 10/09/16 07:35 Hypochromasia Not Reportable 10/09/16 07:35 Poikilocytosis Not Reportable 10/09/16 07:35 Anisocytosis 1+ 10/09/16 07:35 Microcytosis Not Reportable 10/09/16 07:35 Macrocytosis Not Reportable 10/09/16 07:35 Spherocytes Not Reportable 10/09/16 07:35 Pappenheimer Bodies Not Reportable 10/09/16 07:35 Sickle Cells Not Reportable 10/09/16 07:35 Target Cells Few 10/09/16 07:35 Tear Drop Cells Not Reportable 10/09/16 07:35 Ovalocytes Not Reportable 10/09/16 07:35 Helmet Cells Not Reportable 10/09/16 07:35 [place] Bodies Not Reportable 10/09/16 07:35 [place] Rings Not Reportable 10/09/16 07:35 [place] Cells Not Reportable 10/09/16 07:35 Bite Cells Not Reportable 10/09/16 07:35 Crenated Cell Not Reportable 10/09/16 07:35 Elliptocytes Not Reportable 10/09/16 07:35 Acanthocytes (Spur) Not Reportable 10/09/16 07:35 Rouleaux Not Reportable 10/09/16 07:35 Hemoglobin C Crystals Not Reportable 10/09/16 07:35 Schistocytes Not Reportable 10/09/16 07:35 Malaria parasites Not Reportable 10/09/16 07:35 [place] Bodies Not Reportable 10/09/16 07:35 Hem Pathologist Commnt No 10/09/16 07:35 Sodium 142 mmol/L (137-145) 10/09/16 07:35 Potassium 3.6 mmol/L (3.6-5.0) 10/09/16 07:35 Chloride 98.4 mmol/L (98-107) 10/09/16 07:35 Carbon Dioxide 25 mmol/L (22-30) 10/09/16 07:35 Anion Gap 22 mmol/L 10/09/16 07:35 BUN 29 mg/dL (7-17) H 10/09/16 07:35 Creatinine 5.7 mg/dL (0.7-1.2) H 10/09/16 07:35 Estimated GFR 10 ml/min 10/09/16 07:35 BUN/Creatinine Ratio 5.08 % 10/09/16 07:35 Glucose 138 mg/dL (65-100) H 10/09/16 07:35 POC Glucose 249 (70-105) H 10/09/16 13:07 Calcium 8.7 mg/dL (8.4-10.2) 10/09/16 07:35 Total Bilirubin < 0.20 mg/dL (0.1-1.2) 10/01/16 05:15 AST 12 units/L (5-40) 10/01/16 05:15 ALT < 5 units/L (7-56) L 10/01/16 05:15 Alkaline Phosphatase 110 units/L (35-129) 10/01/16 05:15 Total Protein 6.8 g/dL (6.3-8.2) 10/01/16 05:15 Albumin 2.6 g/dL (3.9-5) L 10/01/16 05:15 Albumin/Globulin Ratio 0.6 % 10/01/16 05:15 Urine Color Yellow (Yellow) 10/02/16 11:31 Urine Turbidity Turbid (Clear) 10/02/16 11:31 Urine pH 6.0 (5.0-7.0) 10/02/16 11:31 Ur Specific [place] 1.018 (1.003-1.030) 10/02/16 11:31 Urine Protein 100 mg/dl mg/dL (Negative) 10/02/16 11:31 Urine Glucose (UA) Neg mg/dL (Negative) 10/02/16 11:31 Urine Ketones Neg mg/dL (Negative) 10/02/16 11:31 Urine Blood Mod (Negative) 10/02/16 11:31 Urine Nitrite Neg (Negative) 10/02/16 11:31 Urine Bilirubin Neg (Negative) 10/02/16 11:31 Urine Urobilinogen < 2.0 mg/dL (<2.0) 10/02/16 11:31 Ur Leukocyte Esterase Lg (Negative) 10/02/16 11:31 Urine WBC (Auto) > 182.0 /HPF (0.0-6.0) H 10/02/16 11:31 Urine RBC (Auto) 68.0 /HPF (0.0-6.0) 10/02/16 11:31 U Epithel Cells (Auto) 3.0 /HPF (0-13.0) 10/02/16 11:31 Urine Bacteria (Auto) 3+ /HPF (Negative) 10/02/16 11:31 Blood Type O POSITIVE 10/07/16 14:20 Antibody Screen TNR 10/07/16 14:20 SHAHEED Antibody Screen Negative 10/07/16 14:20 Crossmatch See Detail 10/07/16 14:20
[2016-10-09] MEDS ORDERED: NACL 0.9% 1000 ML 2,000 ML ONE (17:33)
[2016-10-09] MEDS: VANCOMYCIN/NS 1 GM/250 ML 1 GM/250 ML BAG IV SCH (19:01)
[2016-10-09] MEDS: TRANSDERM-SCOP TD SCH (22:49)
[2016-10-09] MEDS: SENOKOT PO SCH (22:51)
[2016-10-09] MEDS: ULTRAM PO PRN (22:51)
[2016-10-09] MEDS: ZOCOR PO SCH (22:51)
[2016-10-10] MEDS: ZOSYN/NS 2.25 GM/50ML 2.25 GM/50 ML BAG IV SCH ×2 (03:45→11:14)
[2016-10-10] MEDS: NOVOLOG SUB-Q SCH ×7 (07:46→22:32)
[2016-10-10] MEDS ORDERED: LEVEMIR SUB-Q SCH (08:07)
[2016-10-10] MEDS: ASPIRIN PO SCH (09:24)
[2016-10-10] MEDS: KEPPRA PO SCH ×2 (09:24→22:29)
[2016-10-10] MEDS: HEPARIN SUB-Q SCH ×2 (09:25→22:30)
[2016-10-10] MEDS: FLAGYL PO SCH ×2 (09:25→22:29)
[2016-10-10] MEDS: PEPCID PO SCH (09:25)
[2016-10-10] MEDS: THERMAZENE 50 GRAM TP SCH ×2 (09:30→22:00)
[2016-10-10] MEDS: NYSTOP TP SCH ×2 (09:30→22:31)
[2016-10-10] MEDS: ULTRAM PO PRN (09:40)
--- NOTE | 2016-10-10 11:59 | Progress Note ---
Assessment and Plan Assessment and plan: 36-year-old woman status post thoracic cord infarction and acute CVA who is now paraplegic in acute rehabilitation for aggressive rehabilitation. Medicine consulted for management of hypotension and presumed sepsis. 1. Severe sepsis, septic shock with hypotension On Levaquin and vanc, add Zosyn -BP improved with IVF resuscitation and prbc Continue sepsis pathway, she does have Gardnerella vaginalis UTI, continue metronidazole 7 days, till 10/14 chest x-ray was negative for pneumonia on 10/07, follow-up blood cultures from 10/06 and 10/07, NGTD Also notes there was a vegetation seen on permacath which was exchanged on however blood cultures from that time were negative Blood cx continue to be negative, only identified source is the UTI, de- escalate abx to Augmentin renally doses and complete course of metronidazole for BV, Abx to be continued till 10/14/16 to complete 7 day course 2. Hypotension Most likely due to sepsis and polypharmacy, blood pressure medications have been dc, BP now impoved after resuscitation with IVF and PRBC transfusion 3. DM type 2- insulin dependent Still hyperglycemic, continue to optimize insulins 4. ESRD, CKD stage 5 on HD - continue HD 5. Anemia of Chronic disease -Status post transfusion with appropriate rise in hemoglobin 6. Depression if patient is agreeable, she may benefit from Psychiatry evaluation History Interval history: She states that she feels much better today, denies cough, shortness of breath has now resolved. Denies fever, she feels that she is improving. Hospitalist Physical - Physical exam Narrative exam: General: appears well HEENT: MMM, EOMI cardiac: S1-S2 heard lungs: clear to auscultation, abdomen: soft, nontender, nondistended bowel sounds positive extremities: no edema clubbing or cyanosis Skin: no rash or lesion Neuro: Paraplegic Psych: depressed mood, cognition intact - Constitutional Vitals: Temp Pulse Resp BP Pulse Ox 100.2 F H 94 H 20 153/76 100 10/10/16 08:10 10/10/16 08:10 10/10/16 09:40 10/10/16 08:10 10/10/16 08:10 General appearance: Present: mild distress (back pain), obese Results - Labs CBC & Chem 7: 10/09/16 07:35 10/09/16 07:35 Labs: Laboratory Last Values WBC 24.6 K/mm3 (4.5-11.0) H 10/09/16 07:35 RBC 3.38 M/mm3 (3.65-5.03) L 10/09/16 07:35 Hgb 9.1 gm/dl (10.1-14.3) L 10/09/16 07:35 Hct 28.8 % (30.3-42.9) L 10/09/16 07:35 MCV 85 fl (79-97) D 10/09/16 07:35 MCH 27 pg (28-32) L 10/09/16 07:35 MCHC 32 % (30-34) 10/09/16 07:35 RDW 16.6 % (13.2-15.2) H 10/09/16 07:35 Plt Count 325 K/mm3 (140-440) 10/09/16 07:35 Lymph % (Auto) 5.6 % (13.4-35.0) L 10/03/16 08:44 [place] % (Auto) 7.9 % (0.0-7.3) H 10/03/16 08:44 Eos % (Auto) 4.6 % (0.0-4.3) H 10/03/16 08:44 Baso % (Auto) 1.4 % (0.0-1.8) 10/03/16 08:44 Lymph # 0.6 K/mm3 (1.2-5.4) L 10/03/16 08:44 [place] # 0.9 K/mm3 (0.0-0.8) H 10/03/16 08:44 Eos # 0.5 K/mm3 (0.0-0.4) H 10/03/16 08:44 Baso # 0.2 K/mm3 (0.0-0.1) H 10/03/16 08:44 Add Manual Diff Complete 10/09/16 07:35 Total Counted 100 10/09/16 07:35 Seg Neutrophils % 80.5 % (40.0-70.0) H 10/03/16 08:44 Seg Neuts % (Manual) 82.0 % (40.0-70.0) H 10/09/16 07:35 Band Neutrophils % 1.0 % 10/09/16 07:35 Lymphocytes % (Manual) 6.0 % (13.4-35.0) L 10/09/16 07:35 Reactive Lymphs % (Man) 0 % 10/09/16 07:35 Monocytes % (Manual) 2.0 % (0.0-7.3) 10/09/16 07:35 Eosinophils % (Manual) 8.0 % (0.0-4.3) H 10/09/16 07:35 Basophils % (Manual) 0 % (0.0-1.8) 10/09/16 07:35 Metamyelocytes % 1.0 % 10/09/16 07:35 Myelocytes % 0 % 10/09/16 07:35 Promyelocytes % 0 % 10/09/16 07:35 Blast Cells % 0 % 10/09/16 07:35 Nucleated RBC % Not Reportable 10/09/16 07:35 Seg Neutrophils # 9.0 K/mm3 (1.8-7.7) H 10/03/16 08:44 Seg Neutrophils # Man 20.2 K/mm3 (1.8-7.7) H 10/09/16 07:35 Band Neutrophils # 0.2 K/mm3 10/09/16 07:35 Lymphocytes # (Manual) 1.5 K/mm3 (1.2-5.4) 10/09/16 07:35 Abs React Lymphs (Man) 0.0 K/mm3 10/09/16 07:35 Monocytes # (Manual) 0.5 K/mm3 (0.0-0.8) 10/09/16 07:35 Eosinophils # (Manual) 2.0 K/mm3 (0.0-0.4) H 10/09/16 07:35 Basophils # (Manual) 0.0 K/mm3 (0.0-0.1) 10/09/16 07:35 Metamyelocytes # 0.2 K/mm3 10/09/16 07:35 Myelocytes # 0.0 K/mm3 10/09/16 07:35 Promyelocytes # 0.0 K/mm3 10/09/16 07:35 Blast Cells # 0.0 K/mm3 10/09/16 07:35 WBC Morphology Not Reportable 10/09/16 07:35 Hypersegmented Neuts Not Reportable 10/09/16 07:35 Hyposegmented Neuts Not Reportable 10/09/16 07:35 Hypogranular Neuts Not Reportable 10/09/16 07:35 Smudge Cells Not Reportable 10/09/16 07:35 Toxic Granulation Not Reportable 10/09/16 07:35 Toxic Vacuolation Not Reportable 10/09/16 07:35 Dohle Bodies Not Reportable 10/09/16 07:35 Pelger-Huet Anomaly Not Reportable 10/09/16 07:35 Tiffanie Rods Not Reportable 10/09/16 07:35 Platelet Estimate Cons 10/09/16 07:35 Clumped Platelets Not Reportable 10/09/16 07:35 Plt Clumps, EDTA Not Reportable 10/09/16 07:35 Large Platelets Not Reportable 10/09/16 07:35 Giant Platelets Not Reportable 10/09/16 07:35 Platelet Satelliting Not Reportable 10/09/16 07:35 Plt Morphology Comment Not Reportable 10/09/16 07:35 RBC Morphology Not Reportable 10/09/16 07:35 Dimorphic RBCs Not Reportable 10/09/16 07:35 Polychromasia Rare 10/09/16 07:35 Hypochromasia Not Reportable 10/09/16 07:35 Poikilocytosis Not Reportable 10/09/16 07:35 Anisocytosis 1+ 10/09/16 07:35 Microcytosis Not Reportable 10/09/16 07:35 Macrocytosis Not Reportable 10/09/16 07:35 Spherocytes Not Reportable 10/09/16 07:35 Pappenheimer Bodies Not Reportable 10/09/16 07:35 Sickle Cells Not Reportable 10/09/16 07:35 Target Cells Few 10/09/16 07:35 Tear Drop Cells Not Reportable 10/09/16 07:35 Ovalocytes Not Reportable 10/09/16 07:35 Helmet Cells Not Reportable 10/09/16 07:35 Lutz-Acequia Bodies Not Reportable 10/09/16 07:35 Paulding Rings Not Reportable 10/09/16 07:35 Damon Cells Not Reportable 10/09/16 07:35 Bite Cells Not Reportable 10/09/16 07:35 Crenated Cell Not Reportable 10/09/16 07:35 Elliptocytes Not Reportable 10/09/16 07:35 Acanthocytes (Spur) Not Reportable 10/09/16 07:35 Rouleaux Not Reportable 10/09/16 07:35 Hemoglobin C Crystals Not Reportable 10/09/16 07:35 Schistocytes Not Reportable 10/09/16 07:35 Malaria parasites Not Reportable 10/09/16 07:35 Angel Bodies Not Reportable 10/09/16 07:35 Hem Pathologist Commnt No 10/09/16 07:35 Sodium 142 mmol/L (137-145) 10/09/16 07:35 Potassium 3.6 mmol/L (3.6-5.0) 10/09/16 07:35 Chloride 98.4 mmol/L (98-107) 10/09/16 07:35 Carbon Dioxide 25 mmol/L (22-30) 10/09/16 07:35 Anion Gap 22 mmol/L 10/09/16 07:35 BUN 29 mg/dL (7-17) H 10/09/16 07:35 Creatinine 5.7 mg/dL (0.7-1.2) H 10/09/16 07:35 Estimated GFR 10 ml/min 10/09/16 07:35 BUN/Creatinine Ratio 5.08 % 10/09/16 07:35 Glucose 138 mg/dL (65-100) H 10/09/16 07:35 POC Glucose 280 (70-105) H 10/10/16 06:48 Calcium 8.7 mg/dL (8.4-10.2) 10/09/16 07:35 Total Bilirubin < 0.20 mg/dL (0.1-1.2) 10/01/16 05:15 AST 12 units/L (5-40) 10/01/16 05:15 ALT < 5 units/L (7-56) L 10/01/16 05:15 Alkaline Phosphatase 110 units/L (35-129) 10/01/16 05:15 Total Protein 6.8 g/dL (6.3-8.2) 10/01/16 05:15 Albumin 2.6 g/dL (3.9-5) L 10/01/16 05:15 Albumin/Globulin Ratio 0.6 % 10/01/16 05:15 Urine Color Yellow (Yellow) 10/02/16 11:31 Urine Turbidity Turbid (Clear) 10/02/16 11:31 Urine pH 6.0 (5.0-7.0) 10/02/16 11:31 Ur Specific [place] 1.018 (1.003-1.030) 10/02/16 11:31 Urine Protein 100 mg/dl mg/dL (Negative) 10/02/16 11:31 Urine Glucose (UA) Neg mg/dL (Negative) 10/02/16 11:31 Urine Ketones Neg mg/dL (Negative) 10/02/16 11:31 Urine Blood Mod (Negative) 10/02/16 11:31 Urine Nitrite Neg (Negative) 10/02/16 11:31 Urine Bilirubin Neg (Negative) 10/02/16 11:31 Urine Urobilinogen < 2.0 mg/dL (<2.0) 10/02/16 11:31 Ur Leukocyte Esterase Lg (Negative) 10/02/16 11:31 Urine WBC (Auto) > 182.0 /HPF (0.0-6.0) H 10/02/16 11:31 Urine RBC (Auto) 68.0 /HPF (0.0-6.0) 10/02/16 11:31 U Epithel Cells (Auto) 3.0 /HPF (0-13.0) 10/02/16 11:31 Urine Bacteria (Auto) 3+ /HPF (Negative) 10/02/16 11:31 Blood Type O POSITIVE 10/07/16 14:20 Antibody Screen TNR 10/07/16 14:20 SHAHEED Antibody Screen Negative 10/07/16 14:20 Crossmatch See Detail 10/07/16 14:20
--- NOTE | 2016-10-10 12:41 | Consultation ---
History of Present Illness - Reason for Consult Consult date: 10/10/16 Sepsis - History of Present Illness Ms. Rankin is a 36-year-old woman with DM2 and ESRD on HD who was admitted in status epilepticus last month. She was found to have a new corpus callosal stroke and developed paralysis. Her course at that time was complicated by an Enterococcus faecalis UTI and a complex coagulase-negative Staph bacteremia with vegetations noted on her permcath. The permcath has been removed/ replaced and several repeat blood cultures remain negative. She was discharged to inpatient rehab on 09/30/16. Now in rehab, she was noted yesterday to be hypotensive with a systolic BP in the 80s and with a low-grade temperature. She has had a leukocytosis with a WBC >20K since 10/06/16. Blood cultures have shown no significant growth. A vaginal culture is positive for Garnerella species and she is receiving Flagyl for presumptive BV. She is also receiving Augmentin for a possible UTI. I am consulted for further assessment of infectious causes of hypotension. Past History Past Medical History: diabetes, ESRD (recently initiated on HD ), GERD, hypertension, seizures Past Surgical History: Other (dialysis access) Social history: single, other (lives with 8 y.o. daugther; parents present). denies: smoking, alcohol abuse Family history: diabetes, hypertension, stroke Medications and Allergies Allergies Allergy/AdvReac Type Severity Reaction Status Date / Time No Known Allergies Allergy Verified 09/05/16 20:32 Home Medications Medication Instructions Recorded Confirmed Last Taken Type Enoxaparin [Lovenox] 30 mg SQ QDAY 30 Days 09/24/16 09/30/16 Unknown Rx Famotidine [Pepcid] 20 mg PO QDAY tablet 09/24/16 09/30/16 Unknown Rx HYDROcodone/APAP 5-325 [[place] 1 each PO Q6HR PRN #20 tablet 09/24/16 09/30/16 Unknown Rx 5/325] Insulin NPH/Regular [NovoLIN 70/30] 28 unit SUB-Q BIDDIAB units 09/24/16 Unknown Rx QUEtiapine [SEROquel] 50 mg PO BID tablet 09/24/16 09/30/16 Unknown Rx Scopolamine [Transderm-Scop] 1 each TD Q3D patch 09/24/16 09/30/16 Unknown Rx cloNIDine [Catapres] 0.3 mg PO Q8HR tablet 09/24/16 09/30/16 Unknown Rx levETIRAcetam [Keppra TAB] 500 mg PO BID #60 tablet 09/24/16 09/30/16 Unknown Rx Active Meds: Active Medications Acetaminophen (Tylenol) 650 mg PO Q4H PRN PRN Reason: Pain MILD(1-3)/Fever >100.5/RG Last Admin: 10/09/16 19:15 Dose: 650 mg Amoxicillin/Clavulanate Potassium (Augmentin 500 Mg) 1 each PO DAILY [facility] Stop: 10/14/16 23:59 Aspirin (Aspirin) 325 mg PO QDAY [facility] Last Admin: 10/10/16 09:24 Dose: 325 mg Dextrose (D50w (25gm)) 50 ml IV PRN PRN PRN Reason: Hypoglycemia Epoetin Pancho (Epogen) 20,000 unit IV DG PRN PRN Reason: hemodialysis Last Admin: 10/09/16 18:02 Dose: 20,000 unit Famotidine (Pepcid) 20 mg PO QDAY [facility] Last Admin: 10/10/16 09:25 Dose: 20 mg Heparin Sodium (Porcine) (Heparin) 5,000 unit SUB-Q Q12HR [facility] Last Admin: 10/10/16 09:25 Dose: 5,000 unit Heparin Sodium (Porcine) (Heparin) 5,000 unit IV DG PRN PRN Reason: hemodialysis Last Admin: 10/07/16 18:21 Dose: 5,000 unit Sodium Chloride (Nacl 0.9%) 100 mls @ 999 mls/hr IV DG PRN PRN Reason: Hypotension Insulin Aspart (Novolog) 0 units SUB-Q ACHS [facility] PRN Reason: Protocol Last Admin: 10/10/16 12:23 Dose: 6 units Insulin Aspart (Novolog) 3 units SUB-Q AC [facility] Last Admin: 10/10/16 12:22 Dose: 3 units Insulin Detemir (Levemir) 20 units SUB-Q QHS [facility] Levetiracetam (Keppra) 750 mg PO BID [facility] Last Admin: 10/10/16 09:24 Dose: 750 mg Metronidazole (Flagyl) 500 mg PO BID [facility] Stop: 10/14/16 08:01 Last Admin: 10/10/16 09:25 Dose: 500 mg Nystatin (Nystop) 1 applic TP BID [facility] Last Admin: 10/10/16 09:30 Dose: 1 applic Scopolamine (Transderm-Scop) 1 each TD Q3D [facility] Last Admin: 10/09/16 22:49 Dose: 1 each Senna (Senokot) 8.6 mg PO QHS [facility] Last Admin: 10/09/16 22:51 Dose: 8.6 mg Silver Sulfadiazine (Thermazene 50 Gram) 1 applic TP BID [facility] Last Admin: 10/10/16 09:30 Dose: 1 applic Simvastatin (Zocor) 40 mg PO QHS [facility] Last Admin: 10/09/16 22:51 Dose: 40 mg Tramadol HCl (Ultram) 50 mg PO Q6H PRN PRN Reason: Pain, Moderate (4-6) Last Admin: 10/10/16 09:40 Dose: 50 mg Review of Systems All systems: negative ((except noted below):) Constitutional: no fever, no chills, no sweats Ears, nose, mouth and throat: no nasal congestion, no sore throat, no headache Cardiovascular: no chest pain, no palpitations Respiratory: no cough, no hemoptysis, no shortness of breath, no congestion Gastrointestinal: no abdominal pain, no nausea, no vomiting, no diarrhea Genitourinary Female: no dysuria, no vaginal itching, no vaginal discharge Integumentary: no rash, no pruritis Neurological: weakness, gait dysfunction Hematologic/Lymphatic: no lymphadenopathy Physical Examination - Physical Exam Narrative exam: sitting in wheelchair at bedside; talking on telephone - Constitutional Vitals: Vital Signs Temp Pulse Resp BP Pulse Ox 100.2 F H 94 H 20 153/76 100 10/10/16 08:10 10/10/16 08:10 10/10/16 09:40 10/10/16 08:10 10/10/16 08:10 Temperature -Last 24 Hours Temperature 100.2 F Temperature 97.9 F Temperature 97.6 F Temperature 98.1 F Temperature 97.9 F General appearance: Present: no acute distress - EENT Eyes: Absent: conjunctival injection ENT: no oropharyngeal erythema, no thrush - Neck Neck: Present: supple - Respiratory Respiratory effort: normal Respiratory: bilateral: CTA, negative: rales - Cardiovascular Rhythm: regular Heart Sounds: Present: S1 & S2 - Extremities Extremities: No edema - Abdominal General gastrointestinal: Present: soft, non-distended - Integumentary Integumentary: Absent: rash - Psychiatric Psychiatric: appropriate mood/affect Results - Labs CBC & Chem 7: 10/09/16 07:35 10/09/16 07:35 Labs: Abnormal lab results 10/09/16 10/09/16 10/09/16 Range/Units 13:07 18:53 21:36 POC Glucose 249 H 283 H 368 H (70-105) 10/10/16 10/10/16 Range/Units 06:48 11:58 POC Glucose 280 H 305 H (70-105) Microbiology 10/07/16 16:52 Peripheral/Venous Blood Culture - Preliminary NO GROWTH AFTER 48 HOURS 10/07/16 16:52 Peripheral/Venous Blood Culture - Preliminary NO GROWTH AFTER 48 HOURS 10/06/16 14:58 Peripheral/Venous Blood Culture - Preliminary NO GROWTH AFTER 72 HOURS 10/06/16 14:58 Peripheral/Venous Blood Culture - Preliminary NO GROWTH AFTER 72 HOURS 10/06/16 18:00 Urine,Catheterized - Straight Catheter Urine Culture - Final Nory Albicans 10/07/16 21:50 Stool Stool Occult Blood (LUIS) - Final 10/02/16 Unknown Vaginal Genital Culture - Final Gardnerella Vaginalis 10/02/16 11:31 Urine,Catheterized - Straight Catheter Urine Culture - Final - Imaging and Cardiology Chest x-ray: report reviewed ((10/06/16) - 1.5cm hypodensity at corpus callosum suspicious for acute infarct; (10/07/16) - no acute process; stable cardiomegaly) Assessment and Plan - Patient Problems (1) Hypotension Current Visit: Yes Status: Acute Qualifiers: Hypotension type: hypotension due to drug Trimester: T Qualified Code(s) : I95.2 - Hypotension due to drugs Plan to address problem: 1. Hypotensive yesterday, but improved today. No focal issues concerning for infectious process. 2. Will continue to follow on only Augmentin/ Flagyl for now. (2) Leukocytosis Current Visit: Yes Status: Acute Qualifiers: Leukocytosis type: L Plan to address problem: No localizing issue. Will continue to monitor clinically. (3) ESRD on hemodialysis Current Visit: Yes Status: Chronic Plan to address problem: Renally adjust meds.
--- NOTE | 2016-10-10 14:07 | Progress Note ---
Assessment and Plan Assessment: * End stage renal disease * Hypotension - ?iatrogenic 2/2 antiHTN medications vs infectious process * Fever r/o bacteremia * Status post Hyperglycemic hyperosmolar nonketotic coma * Status post hypoxemic respiratory failure * Catheter associated bacteremia --Blood cx 09/05: coag negative staph * Permcath w/ mobile vegetation --PermCath was exchanged on 09/29/2016 * Thoracic spinal cord infarction * Seizure * Anemia secondary to ESRD --Heme occult negative * Hx of enterococcal UTI (cx 09/08) Plan: * Continue MWF schedule - UF as tolerated * AntiHTN medications on hold - continue to monitor BP for now * Continue Vanco/Levaquin * ID consult noted * Dose medications for renal function * Epogen with dialysis Subjective Date of service: 10/10/16 Principal diagnosis: thoracic cord infarction Interval history: resting in bed today Objective - Exam Narrative Exam: General appearance: well-developed, well-nourished EENT: ATNC Respiratory: Present: Clear to Ascultation Cardiology: regular, S1S2 Gastrointestinal: normal Integumentary: no rash Musculoskeletal: other (trace edema) Psychiatric: cooperative - Vital Signs Vital signs: Vital Signs - 12hr 10/10/16 10/10/16 10/10/16 07:58 08:10 09:40 Temperature 100.2 F H Pulse Rate [ 94 H Left Brachial] Respiratory 20 20 Rate Blood Pressure 153/76 [Left Arm] O2 Sat by Pulse 93 100 Oximetry - Lab 10/09/16 07:35 10/09/16 07:35 Most recent lab results Calcium 8.7 mg/dL (8.4-10.2) 10/09/16 07:35
[2016-10-10] MEDS: SENOKOT PO SCH (22:29)
[2016-10-10] MEDS: ZOCOR PO SCH (22:30)
[2016-10-11] MEDS ORDERED: LEVEMIR SUB-Q SCH (08:09)
--- NOTE | 2016-10-11 08:10 | Progress Note ---
Assessment and Plan Assessment and plan: 36-year-old woman status post thoracic cord infarction and acute CVA who is now paraplegic in acute rehabilitation for aggressive rehabilitation. Medicine consulted for management of hypotension and presumed sepsis. 1. Severe sepsis, septic shock with hypotension On Levaquin and vanc, add Zosyn -BP improved with IVF resuscitation and prbc Continue sepsis pathway, she does have Gardnerella vaginalis UTI, continue metronidazole 7 days, till 10/14 chest x-ray was negative for pneumonia on 10/07, follow-up blood cultures from 10/06 and 10/07, NGTD Also notes there was a vegetation seen on permacath which was exchanged on however blood cultures from that time were negative Blood cx continue to be negative, only identified source is the UTI, de- escalate abx to metronidazole for BV, Abx to be continued till 10/14/16 to complete 7 day course, all other abx DC per Dr Ogden 2. Accelerated HTN optimize oral meds (Will not give clonidine again, as she is at risk for hypotension and rebound htn) 3. DM type 2- insulin dependent Still hyperglycemic, continue to optimize insulins 4. ESRD, CKD stage 5 on HD - continue HD 5. Anemia of Chronic disease -Status post transfusion with appropriate rise in hemoglobin 6. Hypotension Most likely due to sepsis and polypharmacy, , BP now elevated 7. Depression if patient is agreeable, she may benefit from Psychiatry evaluation History Interval history: She states that she feels much better today, denies cough, shortness of breath has now resolved. Denies fever, she feels that she is improving. Hospitalist Physical - Physical exam Narrative exam: General: appears well HEENT: MMM, EOMI cardiac: S1-S2 heard lungs: clear to auscultation, abdomen: soft, nontender, nondistended bowel sounds positive extremities: no edema clubbing or cyanosis Skin: no rash or lesion Neuro: Paraplegic Psych: depressed mood, cognition intact - Constitutional Vitals: Temp Pulse Resp BP Pulse Ox 98.2 F 83 20 163/81 99 10/10/16 21:00 10/10/16 21:00 10/10/16 22:00 10/10/16 21:00 10/10/16 22:00 General appearance: Present: no acute distress Results - Labs CBC & Chem 7: 10/09/16 07:35 10/09/16 07:35 Labs: Laboratory Last Values WBC 24.6 K/mm3 (4.5-11.0) H 10/09/16 07:35 RBC 3.38 M/mm3 (3.65-5.03) L 10/09/16 07:35 Hgb 9.1 gm/dl (10.1-14.3) L 10/09/16 07:35 Hct 28.8 % (30.3-42.9) L 10/09/16 07:35 MCV 85 fl (79-97) D 10/09/16 07:35 MCH 27 pg (28-32) L 10/09/16 07:35 MCHC 32 % (30-34) 10/09/16 07:35 RDW 16.6 % (13.2-15.2) H 10/09/16 07:35 Plt Count 325 K/mm3 (140-440) 10/09/16 07:35 Lymph % (Auto) 5.6 % (13.4-35.0) L 10/03/16 08:44 [place] % (Auto) 7.9 % (0.0-7.3) H 10/03/16 08:44 Eos % (Auto) 4.6 % (0.0-4.3) H 10/03/16 08:44 Baso % (Auto) 1.4 % (0.0-1.8) 10/03/16 08:44 Lymph # 0.6 K/mm3 (1.2-5.4) L 10/03/16 08:44 [place] # 0.9 K/mm3 (0.0-0.8) H 10/03/16 08:44 Eos # 0.5 K/mm3 (0.0-0.4) H 10/03/16 08:44 Baso # 0.2 K/mm3 (0.0-0.1) H 10/03/16 08:44 Add Manual Diff Complete 10/09/16 07:35 Total Counted 100 10/09/16 07:35 Seg Neutrophils % 80.5 % (40.0-70.0) H 10/03/16 08:44 Seg Neuts % (Manual) 82.0 % (40.0-70.0) H 10/09/16 07:35 Band Neutrophils % 1.0 % 10/09/16 07:35 Lymphocytes % (Manual) 6.0 % (13.4-35.0) L 10/09/16 07:35 Reactive Lymphs % (Man) 0 % 10/09/16 07:35 Monocytes % (Manual) 2.0 % (0.0-7.3) 10/09/16 07:35 Eosinophils % (Manual) 8.0 % (0.0-4.3) H 10/09/16 07:35 Basophils % (Manual) 0 % (0.0-1.8) 10/09/16 07:35 Metamyelocytes % 1.0 % 10/09/16 07:35 Myelocytes % 0 % 10/09/16 07:35 Promyelocytes % 0 % 10/09/16 07:35 Blast Cells % 0 % 10/09/16 07:35 Nucleated RBC % Not Reportable 10/09/16 07:35 Seg Neutrophils # 9.0 K/mm3 (1.8-7.7) H 10/03/16 08:44 Seg Neutrophils # Man 20.2 K/mm3 (1.8-7.7) H 10/09/16 07:35 Band Neutrophils # 0.2 K/mm3 10/09/16 07:35 Lymphocytes # (Manual) 1.5 K/mm3 (1.2-5.4) 10/09/16 07:35 Abs React Lymphs (Man) 0.0 K/mm3 10/09/16 07:35 Monocytes # (Manual) 0.5 K/mm3 (0.0-0.8) 10/09/16 07:35 Eosinophils # (Manual) 2.0 K/mm3 (0.0-0.4) H 10/09/16 07:35 Basophils # (Manual) 0.0 K/mm3 (0.0-0.1) 10/09/16 07:35 Metamyelocytes # 0.2 K/mm3 10/09/16 07:35 Myelocytes # 0.0 K/mm3 10/09/16 07:35 Promyelocytes # 0.0 K/mm3 10/09/16 07:35 Blast Cells # 0.0 K/mm3 10/09/16 07:35 WBC Morphology Not Reportable 10/09/16 07:35 Hypersegmented Neuts Not Reportable 10/09/16 07:35 Hyposegmented Neuts Not Reportable 10/09/16 07:35 Hypogranular Neuts Not Reportable 10/09/16 07:35 Smudge Cells Not Reportable 10/09/16 07:35 Toxic Granulation Not Reportable 10/09/16 07:35 Toxic Vacuolation Not Reportable 10/09/16 07:35 Dohle Bodies Not Reportable 10/09/16 07:35 Pelger-Huet Anomaly Not Reportable 10/09/16 07:35 Tiffanie Rods Not Reportable 10/09/16 07:35 Platelet Estimate Cons 10/09/16 07:35 Clumped Platelets Not Reportable 10/09/16 07:35 Plt Clumps, EDTA Not Reportable 10/09/16 07:35 Large Platelets Not Reportable 10/09/16 07:35 Giant Platelets Not Reportable 10/09/16 07:35 Platelet Satelliting Not Reportable 10/09/16 07:35 Plt Morphology Comment Not Reportable 10/09/16 07:35 RBC Morphology Not Reportable 10/09/16 07:35 Dimorphic RBCs Not Reportable 10/09/16 07:35 Polychromasia Rare 10/09/16 07:35 Hypochromasia Not Reportable 10/09/16 07:35 Poikilocytosis Not Reportable 10/09/16 07:35 Anisocytosis 1+ 10/09/16 07:35 Microcytosis Not Reportable 10/09/16 07:35 Macrocytosis Not Reportable 10/09/16 07:35 Spherocytes Not Reportable 10/09/16 07:35 Pappenheimer Bodies Not Reportable 10/09/16 07:35 Sickle Cells Not Reportable 10/09/16 07:35 Target Cells Few 10/09/16 07:35 Tear Drop Cells Not Reportable 10/09/16 07:35 Ovalocytes Not Reportable 10/09/16 07:35 Helmet Cells Not Reportable 10/09/16 07:35 [place] Bodies Not Reportable 10/09/16 07:35 [place] Rings Not Reportable 10/09/16 07:35 Damon Cells Not Reportable 10/09/16 07:35 Bite Cells Not Reportable 10/09/16 07:35 Crenated Cell Not Reportable 10/09/16 07:35 Elliptocytes Not Reportable 10/09/16 07:35 Acanthocytes (Spur) Not Reportable 10/09/16 07:35 Rouleaux Not Reportable 10/09/16 07:35 Hemoglobin C Crystals Not Reportable 10/09/16 07:35 Schistocytes Not Reportable 10/09/16 07:35 Malaria parasites Not Reportable 10/09/16 07:35 Angel Bodies Not Reportable 10/09/16 07:35 Hem Pathologist Commnt No 10/09/16 07:35 Sodium 142 mmol/L (137-145) 10/09/16 07:35 Potassium 3.6 mmol/L (3.6-5.0) 10/09/16 07:35 Chloride 98.4 mmol/L (98-107) 10/09/16 07:35 Carbon Dioxide 25 mmol/L (22-30) 10/09/16 07:35 Anion Gap 22 mmol/L 10/09/16 07:35 BUN 29 mg/dL (7-17) H 10/09/16 07:35 Creatinine 5.7 mg/dL (0.7-1.2) H 10/09/16 07:35 Estimated GFR 10 ml/min 10/09/16 07:35 BUN/Creatinine Ratio 5.08 % 10/09/16 07:35 Glucose 138 mg/dL (65-100) H 10/09/16 07:35 POC Glucose 244 (70-105) H 10/11/16 06:49 Calcium 8.7 mg/dL (8.4-10.2) 10/09/16 07:35 Total Bilirubin < 0.20 mg/dL (0.1-1.2) 10/01/16 05:15 AST 12 units/L (5-40) 10/01/16 05:15 ALT < 5 units/L (7-56) L 10/01/16 05:15 Alkaline Phosphatase 110 units/L (35-129) 10/01/16 05:15 Total Protein 6.8 g/dL (6.3-8.2) 10/01/16 05:15 Albumin 2.6 g/dL (3.9-5) L 10/01/16 05:15 Albumin/Globulin Ratio 0.6 % 10/01/16 05:15 Urine Color Yellow (Yellow) 10/02/16 11:31 Urine Turbidity Turbid (Clear) 10/02/16 11:31 Urine pH 6.0 (5.0-7.0) 10/02/16 11:31 Ur Specific [place] 1.018 (1.003-1.030) 10/02/16 11:31 Urine Protein 100 mg/dl mg/dL (Negative) 10/02/16 11:31 Urine Glucose (UA) Neg mg/dL (Negative) 10/02/16 11:31 Urine Ketones Neg mg/dL (Negative) 10/02/16 11:31 Urine Blood Mod (Negative) 10/02/16 11:31 Urine Nitrite Neg (Negative) 10/02/16 11:31 Urine Bilirubin Neg (Negative) 10/02/16 11:31 Urine Urobilinogen < 2.0 mg/dL (<2.0) 10/02/16 11:31 Ur Leukocyte Esterase Lg (Negative) 10/02/16 11:31 Urine WBC (Auto) > 182.0 /HPF (0.0-6.0) H 10/02/16 11:31 Urine RBC (Auto) 68.0 /HPF (0.0-6.0) 10/02/16 11:31 U Epithel Cells (Auto) 3.0 /HPF (0-13.0) 10/02/16 11:31 Urine Bacteria (Auto) 3+ /HPF (Negative) 10/02/16 11:31 Blood Type O POSITIVE 10/07/16 14:20 Antibody Screen TNR 10/07/16 14:20 SHAHEED Antibody Screen Negative 10/07/16 14:20 Crossmatch See Detail 10/07/16 14:20
[2016-10-11] MEDS: KEPPRA PO SCH ×2 (08:37→21:43)
[2016-10-11] MEDS: ASPIRIN PO SCH (08:37)
[2016-10-11] MEDS: HEPARIN SUB-Q SCH ×3 (08:38→21:44)
[2016-10-11] MEDS: NOVOLOG SUB-Q SCH ×7 (08:39→21:43)
[2016-10-11] MEDS: FLAGYL PO SCH ×2 (08:39→21:43)
[2016-10-11] MEDS: PEPCID PO SCH (08:39)
[2016-10-11] MEDS ORDERED: APRESOLINE IV PRN (08:46)
[2016-10-11] MEDS: PROCARDIA XL PO SCH (09:03)
[2016-10-11] MEDS: ZESTRIL PO SCH (09:03)
[2016-10-11] MEDS: THERMAZENE 50 GRAM TP SCH ×2 (09:07→21:46)
[2016-10-11] MEDS: NYSTOP TP SCH ×2 (09:07→21:45)
[2016-10-11] MEDS ORDERED: AUGMENTIN 500 MG PO SCH (10:00)
--- NOTE | 2016-10-11 11:40 | Progress Note ---
Assessment and Plan - Patient Problems (1) Hypotension Current Visit: Yes Status: Acute Qualifiers: Hypotension type: hypotension due to drug Trimester: T Qualified Code(s) : I95.2 - Hypotension due to drugs Plan to address problem: 1. Improved. No infection identified. 2. Will discontinue Augmentin and follow clinically. (2) Leukocytosis Current Visit: Yes Status: Acute Qualifiers: Leukocytosis type: L Plan to address problem: 1. Greater than 20K when assayed previously. Will continue to monitor for localizing clinical issue. Subjective Date of service: 10/11/16 Principal diagnosis: hypotension; leukocytosis Interval history: Patient remains afebrile and has no new complaints. No hypotension. BP elevated today. Objective - Exam Narrative Exam: eating lunch - Constitutional Vitals: Vital Signs Temp Pulse Resp BP Pulse Ox 98.7 F 82 20 142/70 97 10/11/16 07:30 10/11/16 10:32 10/11/16 07:30 10/11/16 10:32 10/11/16 08:46 Temperature -Last 24 Hours Temperature 98.7 F Temperature 98.2 F Temperature 97.8 F General appearance: Present: no acute distress - Respiratory Respiratory effort: normal Respiratory: bilateral: CTA - Cardiovascular Rhythm: regular Heart Sounds: Present: S1 & S2 Extremities: No edema - Gastrointestinal General gastrointestinal: Present: soft, non-tender, non-distended - Integumentary Integumentary: no rash - Psychiatric Psychiatric: appropriate mood/affect - Labs CBC & Chem 7: 10/09/16 07:35 10/09/16 07:35 Labs: Abnormal lab results 10/07/16 10/10/16 10/10/16 Range/Units 14:20 11:58 16:52 POC Glucose 305 H 302 H (70-105) Crossmatch See Detail 10/10/16 10/11/16 Range/Units 21:06 06:49 POC Glucose 275 H 244 H (70-105) Crossmatch Microbiology 10/07/16 16:52 Peripheral/Venous Blood Culture - Preliminary NO GROWTH AFTER 72 HOURS 10/07/16 16:52 Peripheral/Venous Blood Culture - Preliminary NO GROWTH AFTER 72 HOURS 10/06/16 14:58 Peripheral/Venous Blood Culture - Preliminary NO GROWTH AFTER 4 DAYS 10/06/16 14:58 Peripheral/Venous Blood Culture - Preliminary NO GROWTH AFTER 4 DAYS 10/06/16 18:00 Urine,Catheterized - Straight Catheter Urine Culture - Final Nory Albicans 10/07/16 21:50 Stool Stool Occult Blood (LUIS) - Final 10/02/16 Unknown Vaginal Genital Culture - Final Gardnerella Vaginalis 10/02/16 11:31 Urine,Catheterized - Straight Catheter Urine Culture - Final Active Medications Acetaminophen (Tylenol) 650 mg PO Q4H PRN PRN Reason: Pain MILD(1-3)/Fever >100.5/RG Last Admin: 10/09/16 19:15 Dose: 650 mg Amoxicillin/Clavulanate Potassium (Augmentin 500 Mg) 1 each PO DAILY [facility] Stop: 10/14/16 23:59 Aspirin (Aspirin) 325 mg PO QDAY [facility] Last Admin: 10/11/16 08:37 Dose: 325 mg Dextrose (D50w (25gm)) 50 ml IV PRN PRN PRN Reason: Hypoglycemia Epoetin Pancho (Epogen) 20,000 unit IV DG PRN PRN Reason: hemodialysis Last Admin: 10/09/16 18:02 Dose: 20,000 unit Famotidine (Pepcid) 20 mg PO QDAY [facility] Last Admin: 10/11/16 08:39 Dose: 20 mg Heparin Sodium (Porcine) (Heparin) 5,000 unit SUB-Q Q12HR [facility] Last Admin: 10/11/16 08:38 Dose: 5,000 unit Heparin Sodium (Porcine) (Heparin) 5,000 unit IV DG PRN PRN Reason: hemodialysis Last Admin: 10/07/16 18:21 Dose: 5,000 unit Hydralazine HCl (Apresoline) 10 mg IV Q4HR PRN PRN Reason: BP >160/100 Sodium Chloride (Nacl 0.9%) 100 mls @ 999 mls/hr IV DG PRN PRN Reason: Hypotension Insulin Aspart (Novolog) 0 units SUB-Q ACHS [facility] PRN Reason: Protocol Last Admin: 10/11/16 08:39 Dose: 3 units Insulin Aspart (Novolog) 6 units SUB-Q AC BOOM Insulin Detemir (Levemir) 30 units SUB-Q QHS [facility] Levetiracetam (Keppra) 750 mg PO BID [facility] Last Admin: 10/11/16 08:37 Dose: 750 mg Lisinopril (Zestril) 40 mg PO QDAY [facility] Last Admin: 10/11/16 09:03 Dose: 40 mg Metronidazole (Flagyl) 500 mg PO BID [facility] Stop: 10/14/16 08:01 Last Admin: 10/11/16 08:39 Dose: 500 mg Nifedipine (Procardia Xl) 30 mg PO QDAY [facility] Last Admin: 10/11/16 09:03 Dose: 30 mg Nystatin (Nystop) 1 applic TP BID [facility] Last Admin: 10/11/16 09:07 Dose: 1 applic Scopolamine (Transderm-Scop) 1 each TD Q3D [facility] Last Admin: 10/09/16 22:49 Dose: 1 each Senna (Senokot) 8.6 mg PO QHS [facility] Last Admin: 10/10/16 22:29 Dose: 8.6 mg Silver Sulfadiazine (Thermazene 50 Gram) 1 applic TP BID [facility] Last Admin: 10/11/16 09:07 Dose: 1 applic Simvastatin (Zocor) 40 mg PO QHS [facility] Last Admin: 10/10/16 22:30 Dose: 40 mg Tramadol HCl (Ultram) 50 mg PO Q6H PRN PRN Reason: Pain, Moderate (4-6) Last Admin: 10/10/16 09:40 Dose: 50 mg
[2016-10-11] MEDS: ULTRAM PO PRN (13:13)
[2016-10-11] MEDS: ZOCOR PO SCH (21:42)
[2016-10-11] MEDS: SENOKOT PO SCH (21:45)
[2016-10-12] MEDS: ULTRAM PO PRN ×2 (03:27→11:22)
[2016-10-12] MEDS: ASPIRIN PO SCH (08:57)
[2016-10-12] MEDS: KEPPRA PO SCH ×2 (08:57→22:22)
[2016-10-12] MEDS: FLAGYL PO SCH ×2 (08:57→22:22)
[2016-10-12] MEDS: PEPCID PO SCH (08:57)
[2016-10-12] MEDS: NOVOLOG SUB-Q SCH ×7 (08:58→22:00)
[2016-10-12] MEDS: NYSTOP TP SCH ×2 (08:59→22:00)
[2016-10-12] MEDS: HEPARIN SUB-Q SCH ×2 (09:01→22:50)
[2016-10-12] MEDS: THERMAZENE 50 GRAM TP SCH ×2 (09:01→22:00)
[2016-10-12] MEDS: PROCARDIA XL PO SCH (09:06)
[2016-10-12] MEDS: ZESTRIL PO SCH (09:06)
[2016-10-12 09:33] LABS: Mean Corpuscular HGB Conc 30 % (30-34); Mean Corpuscular Hemoglobin 27 pg (28-32); Mean Corpuscular Volume 89 fl (79-97); Red Blood Count 3.48 M/mm3 (3.65-5.03)
[2016-10-12 09:40] LABS: Hemoglobin 9.2 gm/dl (10.1-14.3)
[2016-10-12 09:44] LABS: BUN/Creatinine Ratio 5.29; Calcium 8.7 mg/dL (8.4-10.2); Chloride 98.4 mmol/L (98-107); Potassium 3.3 mmol/L (3.6-5.0)
--- NOTE | 2016-10-12 09:57 | Progress Note ---
Assessment and Plan Assessment and plan: 36-year-old woman status post thoracic cord infarction and acute CVA who is now paraplegic in acute rehabilitation for aggressive rehabilitation. Medicine consulted for management of hypotension and presumed sepsis. 1. Severe sepsis, septic shock with hypotension On Levaquin and vanc, add Zosyn -BP improved with IVF resuscitation and prbc Continue sepsis pathway, she does have Gardnerella vaginalis UTI, continue metronidazole 7 days, till 10/14 chest x-ray was negative for pneumonia on 10/07, follow-up blood cultures from 10/06 and 10/07, NGTD Also notes there was a vegetation seen on permacath which was exchanged on however blood cultures from that time were negative Blood cx continue to be negative, only identified source is the UTI, de- escalate abx to metronidazole for BV, Abx to be continued till 10/14/16 to complete 7 day course, all other abx DC per Dr Ogden 2. Accelerated HTN optimize oral meds (Will not give clonidine again, as she is at risk for hypotension and rebound htn) 3. DM type 2- insulin dependent Still hyperglycemic, continue to optimize insulins 4. ESRD, CKD stage 5 on HD - continue HD 5. Anemia of Chronic disease -Status post transfusion with appropriate rise in hemoglobin 6. Hypotension Most likely due to sepsis and polypharmacy, , BP now elevated 7. Depression if patient is agreeable, she may benefit from Psychiatry evaluation History Interval history: She states that she feels much better today, denies cough, shortness of breath has now resolved. Denies fever, she feels that she is improving. Hospitalist Physical - Physical exam Narrative exam: General: appears well HEENT: MMM, EOMI cardiac: S1-S2 heard lungs: clear to auscultation, abdomen: soft, nontender, nondistended bowel sounds positive extremities: no edema clubbing or cyanosis Skin: no rash or lesion Neuro: Paraplegic Psych: depressed mood, cognition intact - Constitutional Vitals: Temp Pulse Resp BP Pulse Ox 97.5 F L 86 18 156/90 97 10/12/16 07:22 10/12/16 07:22 10/12/16 07:22 10/12/16 07:22 10/12/16 07:22 General appearance: Present: no acute distress Results - Labs CBC & Chem 7: 10/12/16 09:04 10/12/16 09:04 Labs: Laboratory Last Values WBC 24.6 K/mm3 (4.5-11.0) H 10/09/16 07:35 RBC 3.48 M/mm3 (3.65-5.03) L 10/12/16 09:04 Hgb 9.2 gm/dl (10.1-14.3) L 10/12/16 09:04 Hct 31.0 % (30.3-42.9) 10/12/16 09:04 MCV 89 fl (79-97) 10/12/16 09:04 MCH 27 pg (28-32) L 10/12/16 09:04 MCHC 30 % (30-34) 10/12/16 09:04 RDW 17.0 % (13.2-15.2) H 10/12/16 09:04 Plt Count 325 K/mm3 (140-440) 10/09/16 07:35 Lymph % (Auto) 5.6 % (13.4-35.0) L 10/03/16 08:44 [place] % (Auto) 7.9 % (0.0-7.3) H 10/03/16 08:44 Eos % (Auto) 4.6 % (0.0-4.3) H 10/03/16 08:44 Baso % (Auto) 1.4 % (0.0-1.8) 10/03/16 08:44 Lymph # 0.6 K/mm3 (1.2-5.4) L 10/03/16 08:44 [place] # 0.9 K/mm3 (0.0-0.8) H 10/03/16 08:44 Eos # 0.5 K/mm3 (0.0-0.4) H 10/03/16 08:44 Baso # 0.2 K/mm3 (0.0-0.1) H 10/03/16 08:44 Add Manual Diff Complete 10/09/16 07:35 Total Counted 100 10/09/16 07:35 Seg Neutrophils % 80.5 % (40.0-70.0) H 10/03/16 08:44 Seg Neuts % (Manual) 82.0 % (40.0-70.0) H 10/09/16 07:35 Band Neutrophils % 1.0 % 10/09/16 07:35 Lymphocytes % (Manual) 6.0 % (13.4-35.0) L 10/09/16 07:35 Reactive Lymphs % (Man) 0 % 10/09/16 07:35 Monocytes % (Manual) 2.0 % (0.0-7.3) 10/09/16 07:35 Eosinophils % (Manual) 8.0 % (0.0-4.3) H 10/09/16 07:35 Basophils % (Manual) 0 % (0.0-1.8) 10/09/16 07:35 Metamyelocytes % 1.0 % 10/09/16 07:35 Myelocytes % 0 % 10/09/16 07:35 Promyelocytes % 0 % 10/09/16 07:35 Blast Cells % 0 % 10/09/16 07:35 Nucleated RBC % Not Reportable 10/09/16 07:35 Seg Neutrophils # 9.0 K/mm3 (1.8-7.7) H 10/03/16 08:44 Seg Neutrophils # Man 20.2 K/mm3 (1.8-7.7) H 10/09/16 07:35 Band Neutrophils # 0.2 K/mm3 10/09/16 07:35 Lymphocytes # (Manual) 1.5 K/mm3 (1.2-5.4) 10/09/16 07:35 Abs React Lymphs (Man) 0.0 K/mm3 10/09/16 07:35 Monocytes # (Manual) 0.5 K/mm3 (0.0-0.8) 10/09/16 07:35 Eosinophils # (Manual) 2.0 K/mm3 (0.0-0.4) H 10/09/16 07:35 Basophils # (Manual) 0.0 K/mm3 (0.0-0.1) 10/09/16 07:35 Metamyelocytes # 0.2 K/mm3 10/09/16 07:35 Myelocytes # 0.0 K/mm3 10/09/16 07:35 Promyelocytes # 0.0 K/mm3 10/09/16 07:35 Blast Cells # 0.0 K/mm3 10/09/16 07:35 WBC Morphology Not Reportable 10/09/16 07:35 Hypersegmented Neuts Not Reportable 10/09/16 07:35 Hyposegmented Neuts Not Reportable 10/09/16 07:35 Hypogranular Neuts Not Reportable 10/09/16 07:35 Smudge Cells Not Reportable 10/09/16 07:35 Toxic Granulation Not Reportable 10/09/16 07:35 Toxic Vacuolation Not Reportable 10/09/16 07:35 Dohle Bodies Not Reportable 10/09/16 07:35 Pelger-Huet Anomaly Not Reportable 10/09/16 07:35 Tiffanie Rods Not Reportable 10/09/16 07:35 Platelet Estimate Cons 10/09/16 07:35 Clumped Platelets Not Reportable 10/09/16 07:35 Plt Clumps, EDTA Not Reportable 10/09/16 07:35 Large Platelets Not Reportable 10/09/16 07:35 Giant Platelets Not Reportable 10/09/16 07:35 Platelet Satelliting Not Reportable 10/09/16 07:35 Plt Morphology Comment Not Reportable 10/09/16 07:35 RBC Morphology Not Reportable 10/09/16 07:35 Dimorphic RBCs Not Reportable 10/09/16 07:35 Polychromasia Rare 10/09/16 07:35 Hypochromasia Not Reportable 10/09/16 07:35 Poikilocytosis Not Reportable 10/09/16 07:35 Anisocytosis 1+ 10/09/16 07:35 Microcytosis Not Reportable 10/09/16 07:35 Macrocytosis Not Reportable 10/09/16 07:35 Spherocytes Not Reportable 10/09/16 07:35 Pappenheimer Bodies Not Reportable 10/09/16 07:35 Sickle Cells Not Reportable 10/09/16 07:35 Target Cells Few 10/09/16 07:35 Tear Drop Cells Not Reportable 10/09/16 07:35 Ovalocytes Not Reportable 10/09/16 07:35 Helmet Cells Not Reportable 10/09/16 07:35 Lutz-[place] Bodies Not Reportable 10/09/16 07:35 [place] Rings Not Reportable 10/09/16 07:35 Damon Cells Not Reportable 10/09/16 07:35 Bite Cells Not Reportable 10/09/16 07:35 Crenated Cell Not Reportable 10/09/16 07:35 Elliptocytes Not Reportable 10/09/16 07:35 Acanthocytes (Spur) Not Reportable 10/09/16 07:35 Rouleaux Not Reportable 10/09/16 07:35 Hemoglobin C Crystals Not Reportable 10/09/16 07:35 Schistocytes Not Reportable 10/09/16 07:35 Malaria parasites Not Reportable 10/09/16 07:35 Angel Bodies Not Reportable 10/09/16 07:35 Hem Pathologist Commnt No 10/09/16 07:35 Sodium 140 mmol/L (137-145) 10/12/16 09:04 Potassium 3.3 mmol/L (3.6-5.0) L 10/12/16 09:04 Chloride 98.4 mmol/L (98-107) 10/12/16 09:04 Carbon Dioxide 24 mmol/L (22-30) 10/12/16 09:04 Anion Gap 21 mmol/L 10/12/16 09:04 BUN 36 mg/dL (7-17) H 10/12/16 09:04 Creatinine 6.8 mg/dL (0.7-1.2) H 10/12/16 09:04 Estimated GFR 8 ml/min 10/12/16 09:04 BUN/Creatinine Ratio 5.29 % 10/12/16 09:04 Glucose 244 mg/dL (65-100) H 10/12/16 09:04 POC Glucose 268 (70-105) H 10/12/16 07:31 Calcium 8.7 mg/dL (8.4-10.2) 10/12/16 09:04 Total Bilirubin < 0.20 mg/dL (0.1-1.2) 10/01/16 05:15 AST 12 units/L (5-40) 10/01/16 05:15 ALT < 5 units/L (7-56) L 10/01/16 05:15 Alkaline Phosphatase 110 units/L (35-129) 10/01/16 05:15 Total Protein 6.8 g/dL (6.3-8.2) 10/01/16 05:15 Albumin 2.6 g/dL (3.9-5) L 10/01/16 05:15 Albumin/Globulin Ratio 0.6 % 10/01/16 05:15 Urine Color Yellow (Yellow) 10/02/16 11:31 Urine Turbidity Turbid (Clear) 10/02/16 11:31 Urine pH 6.0 (5.0-7.0) 10/02/16 11:31 Ur Specific [place] 1.018 (1.003-1.030) 10/02/16 11:31 Urine Protein 100 mg/dl mg/dL (Negative) 10/02/16 11:31 Urine Glucose (UA) Neg mg/dL (Negative) 10/02/16 11:31 Urine Ketones Neg mg/dL (Negative) 10/02/16 11:31 Urine Blood Mod (Negative) 10/02/16 11:31 Urine Nitrite Neg (Negative) 10/02/16 11:31 Urine Bilirubin Neg (Negative) 10/02/16 11:31 Urine Urobilinogen < 2.0 mg/dL (<2.0) 10/02/16 11:31 Ur Leukocyte Esterase Lg (Negative) 10/02/16 11:31 Urine WBC (Auto) > 182.0 /HPF (0.0-6.0) H 10/02/16 11:31 Urine RBC (Auto) 68.0 /HPF (0.0-6.0) 10/02/16 11:31 U Epithel Cells (Auto) 3.0 /HPF (0-13.0) 10/02/16 11:31 Urine Bacteria (Auto) 3+ /HPF (Negative) 10/02/16 11:31 Blood Type O POSITIVE 10/07/16 14:20 Antibody Screen TNR 10/07/16 14:20 SHAHEED Antibody Screen Negative 10/07/16 14:20 Crossmatch See Detail 10/07/16 14:20
[2016-10-12 11:54] LABS: Blastocytes % (Manual) 0 %
[2016-10-12 11:55] LABS: Anisocytosis 1+; Diff Status Complete; Large Platelets Few; Polychromasia Rare; White Blood Count 20.7 K/mm3 (4.5-11.0)
[2016-10-12 11:56] LABS: Platelet Count 268 K/mm3 (140-440); Platelet Estimate Cons
--- NOTE | 2016-10-12 14:00 | Progress Note ---
Assessment and Plan 36 y.o. female s/p intractable status epilepticus on presentation; s/p acute respiratory failure requiring intubation, acute metabolic encephalopathy, GN bacteremia, +E.Faecalis in urine, hypokalemia, left arm cellulitis. Pt later noted to have acute CVA at anterior corpus callosum and left parietal periventricular white matter, subacute bilateral parietal lobe infarcts, and acute onset of BLE numbness and paralysis thought to be secondary to thoracic cord infarction from hypotension; also with mobile vegetation on permacath wire in right atrium; permacath replaced/resolved on 09/29 - thoracic cord infarction- bowel/bladder management; pain control for back pain - daily wound care; ongoing wound care for sacral breakdown; pending heel assessment - sepsis- appreciate ID consult; ABX deescalated; last fever on 10/10 @0810, 100.2; blood cultures negative - acute CVA at anterior corpus callosum and left parietal periventricular white matter; subacute bilateral parietal lobe infarcts- ASA, statin - seizure disorder- keppra; seizure precautions; no seizures since admission - HTN- BP meds restarted due to elevated pressures over weekend; IM managing - DM- continue levemir with SSI per IM; noted adjusted dose over weekend - ESRD- on HD, MWF; Nephrology following - anemia due to ESRD- remains stable - DVT px- heparin - Dispo- discussed with CM; need to discuss further plans with mother as pt will require 24/7 care with 1-2 person assist; will likely require SNF placement due to complexity of ongoing needs - Patient Problems (1) Spinal cord infarction Current Visit: No Status: Acute (2) CVA (cerebral vascular accident) Current Visit: Yes Status: Acute Qualifiers: CVA mechanism: other Precerebral and cerebral artery: P Laterality of affected vessel: L Qualified Code(s): I63.8 - Other cerebral infarction (3) Seizure Current Visit: No Status: Acute (4) Diabetes Current Visit: Yes Status: Chronic Qualifiers: Diabetes mellitus type: type 2 Diabetes mellitus complication status: with hyperglycemia Diabetes mellitus complication detail: D Diabetic retinopathy severity: D Proliferative retinopathy type: P Diabetes mellitus macular edema: D Diabetes mellitus alf insulin use: with termite technician use Laterality: L Chronic kidney disease stage: C Qualified Code(s): E11.65 - Type 2 diabetes mellitus with hyperglycemia; Z79.4 - halfway (current) use of insulin (5) HTN (hypertension) Current Visit: Yes Status: Acute Qualifiers: Hypertension type: essential hypertension Qualified Code(s): I10 - Essential (primary) hypertension (6) ESRD on hemodialysis Current Visit: Yes Status: Chronic (7) Anemia in ESRD (end-stage renal disease) Current Visit: Yes Status: Chronic Subjective Date of service: 10/12/16 Principal diagnosis: thoracic cord infarction Interval history: Pt seen in room this AM, F/U IPR course, s/p thoracic cord infarction and acute CVAs. eating breakfast; no new complaints. Noted to have elevated blood pressures over weekend. Objective - Constitutional Vitals: Vital Signs - 12hr 10/12/16 10/12/16 10/12/16 03:27 04:27 07:22 Temperature 97.5 F L Pulse Rate [ 86 Left Brachial] Respiratory 20 18 18 Rate Respiratory Rate [Bilateral Posterior Back ] Blood Pressure 156/90 [Left Arm] O2 Sat by Pulse 97 Oximetry 10/12/16 10/12/16 10/12/16 11:00 11:22 12:22 Temperature Pulse Rate [ Left Brachial] Respiratory 20 20 Rate Respiratory 20 Rate [Bilateral Posterior Back ] Blood Pressure [Left Arm] O2 Sat by Pulse Oximetry General appearance: Present: no acute distress, obese - EENT Eyes: EOM intact ENT: hearing intact - Neck Neck: supple, normal ROM - Respiratory Respiratory effort: normal Respiratory: bilateral: CTA - Cardiovascular Rhythm: regular Heart Sounds: Present: S1 & S2 Extremities: No edema - Gastrointestinal General gastrointestinal: Present: soft, non-tender, non-distended, normal bowel sounds - Integumentary Integumentary: erythema (bilateral heels) - Neurologic Neurologic: CNII-XII intact, other (no sensation, no active movement in BLE; no tone/spasticity with PROM in BLE) - Psychiatric Psychiatric: cooperative (flat affect) - Allied health notes Allied health notes reviewed: nursing (Ananya for UB dressing, modA for grooming; totalA for bathing, LB dressing, toileting) - Labs CBC & Chem 7: 10/12/16 09:04 10/12/16 09:04 Labs: Abnormal lab results 10/11/16 10/11/16 10/12/16 Range/Units 16:32 21:04 07:31 WBC (4.5-11.0) K/mm3 RBC (3.65-5.03) M/mm3 Hgb (10.1-14.3) gm/dl MCH (28-32) pg RDW (13.2-15.2) % Lymphocytes % (Manual) (13.4-35.0) % Eosinophils % (Manual) (0.0-4.3) % Basophils % (Manual) (0.0-1.8) % Nucleated RBC % (0.0-0.9) % Seg Neutrophils # Man (1.8-7.7) K/mm3 Lymphocytes # (Manual) (1.2-5.4) K/mm3 Potassium (3.6-5.0) mmol/L BUN (7-17) mg/dL Creatinine (0.7-1.2) mg/dL Glucose (65-100) mg/dL POC Glucose 301 H 365 H 268 H (70-105) 10/12/16 10/12/16 Range/Units 09:04 09:04 WBC 20.7 H (4.5-11.0) K/mm3 RBC 3.48 L (3.65-5.03) M/mm3 Hgb 9.2 L (10.1-14.3) gm/dl MCH 27 L (28-32) pg RDW 17.0 H (13.2-15.2) % Lymphocytes % (Manual) 11.0 L (13.4-35.0) % Eosinophils % (Manual) 8.0 H (0.0-4.3) % Basophils % (Manual) 2.0 H (0.0-1.8) % Nucleated RBC % 1.0 H (0.0-0.9) % Seg Neutrophils # Man 0.0 L (1.8-7.7) K/mm3 Lymphocytes # (Manual) 0.0 L (1.2-5.4) K/mm3 Potassium 3.3 L (3.6-5.0) mmol/L BUN 36 H (7-17) mg/dL Creatinine 6.8 H (0.7-1.2) mg/dL Glucose 244 H (65-100) mg/dL POC Glucose (70-105)
[2016-10-12] MEDS ORDERED: LEVEMIR SUB-Q SCH (15:16)
--- NOTE | 2016-10-12 15:27 | Progress Note ---
Assessment and Plan - Patient Problems (1) Hypotension Current Visit: Yes Status: Acute Qualifiers: Hypotension type: hypotension due to drug Trimester: T Qualified Code(s) : I95.2 - Hypotension due to drugs Plan to address problem: Resolved. (2) Leukocytosis Current Visit: Yes Status: Acute Qualifiers: Leukocytosis type: L Plan to address problem: Slowly resolving with no new clinically relevant infectious concerns. Stable off antibiotics. I will see as-needed. Please call again if there are additional questions or concerns. Subjective Date of service: 10/12/16 Principal diagnosis: hypotension Interval history: Patient remains afebrile with a stable BP. No new complaints. Objective - Constitutional Vitals: Vital Signs Temp Pulse Resp BP Pulse Ox 97.5 F L 86 20 156/90 97 10/12/16 07:22 10/12/16 07:22 10/12/16 12:22 10/12/16 07:22 10/12/16 07:22 Temperature -Last 24 Hours Temperature 97.5 F Temperature 98.0 F Temperature 98.6 F General appearance: Present: no acute distress - EENT Eyes: no scleral icterus, no conjunctival injection - Respiratory Respiratory effort: normal Respiratory: bilateral: CTA - Cardiovascular Rhythm: regular Heart Sounds: Present: S1 & S2 Extremities: No edema - Gastrointestinal General gastrointestinal: Present: soft, non-distended - Integumentary Integumentary: no rash - Additional findings Additional findings: right subclavian vascath - Labs CBC & Chem 7: 10/12/16 09:04 10/12/16 09:04 Labs: Abnormal lab results 10/11/16 10/11/16 10/12/16 Range/Units 16:32 21:04 07:31 WBC (4.5-11.0) K/mm3 RBC (3.65-5.03) M/mm3 Hgb (10.1-14.3) gm/dl MCH (28-32) pg RDW (13.2-15.2) % Lymphocytes % (Manual) (13.4-35.0) % Eosinophils % (Manual) (0.0-4.3) % Basophils % (Manual) (0.0-1.8) % Nucleated RBC % (0.0-0.9) % Seg Neutrophils # Man (1.8-7.7) K/mm3 Lymphocytes # (Manual) (1.2-5.4) K/mm3 Potassium (3.6-5.0) mmol/L BUN (7-17) mg/dL Creatinine (0.7-1.2) mg/dL Glucose (65-100) mg/dL POC Glucose 301 H 365 H 268 H (70-105) 10/12/16 10/12/16 Range/Units 09:04 09:04 WBC 20.7 H (4.5-11.0) K/mm3 RBC 3.48 L (3.65-5.03) M/mm3 Hgb 9.2 L (10.1-14.3) gm/dl MCH 27 L (28-32) pg RDW 17.0 H (13.2-15.2) % Lymphocytes % (Manual) 11.0 L (13.4-35.0) % Eosinophils % (Manual) 8.0 H (0.0-4.3) % Basophils % (Manual) 2.0 H (0.0-1.8) % Nucleated RBC % 1.0 H (0.0-0.9) % Seg Neutrophils # Man 0.0 L (1.8-7.7) K/mm3 Lymphocytes # (Manual) 0.0 L (1.2-5.4) K/mm3 Potassium 3.3 L (3.6-5.0) mmol/L BUN 36 H (7-17) mg/dL Creatinine 6.8 H (0.7-1.2) mg/dL Glucose 244 H (65-100) mg/dL POC Glucose (70-105) Microbiology 10/07/16 16:52 Peripheral/Venous Blood Culture - Preliminary NO GROWTH AFTER 4 DAYS 10/07/16 16:52 Peripheral/Venous Blood Culture - Preliminary NO GROWTH AFTER 4 DAYS 10/06/16 14:58 Peripheral/Venous Blood Culture - Final NO GROWTH AFTER 5 DAYS 10/06/16 14:58 Peripheral/Venous Blood Culture - Final NO GROWTH AFTER 5 DAYS 10/06/16 18:00 Urine,Catheterized - Straight Catheter Urine Culture - Final Nory Albicans 10/07/16 21:50 Stool Stool Occult Blood (LUIS) - Final 10/02/16 Unknown Vaginal Genital Culture - Final Gardnerella Vaginalis 10/02/16 11:31 Urine,Catheterized - Straight Catheter Urine Culture - Final Active Medications Acetaminophen (Tylenol) 650 mg PO Q4H PRN PRN Reason: Pain MILD(1-3)/Fever >100.5/RG Last Admin: 10/09/16 19:15 Dose: 650 mg Aspirin (Aspirin) 325 mg PO QDAY [facility] Last Admin: 10/12/16 08:57 Dose: 325 mg Dextrose (D50w (25gm)) 50 ml IV PRN PRN PRN Reason: Hypoglycemia Epoetin Pancho (Epogen) 20,000 unit IV DG PRN PRN Reason: hemodialysis Last Admin: 10/09/16 18:02 Dose: 20,000 unit Famotidine (Pepcid) 20 mg PO QDAY [facility] Last Admin: 10/12/16 08:57 Dose: 20 mg Heparin Sodium (Porcine) (Heparin) 5,000 unit SUB-Q Q12HR [facility] Last Admin: 10/12/16 09:01 Dose: 5,000 unit Heparin Sodium (Porcine) (Heparin) 5,000 unit IV DG PRN PRN Reason: hemodialysis Last Admin: 10/07/16 18:21 Dose: 5,000 unit Hydralazine HCl (Apresoline) 10 mg IV Q4HR PRN PRN Reason: BP >160/100 Sodium Chloride (Nacl 0.9%) 100 mls @ 999 mls/hr IV DG PRN PRN Reason: Hypotension Insulin Aspart (Novolog) 0 units SUB-Q ACHS [facility] PRN Reason: Protocol Last Admin: 10/12/16 12:34 Dose: 3 units Insulin Aspart (Novolog) 8 units SUB-Q AC [facility] Insulin Detemir (Levemir) 40 units SUB-Q QHS [facility] Levetiracetam (Keppra) 750 mg PO BID [facility] Last Admin: 10/12/16 08:57 Dose: 750 mg Lisinopril (Zestril) 40 mg PO QDAY [facility] Last Admin: 10/12/16 09:06 Dose: Not Given Metronidazole (Flagyl) 500 mg PO BID [facility] Stop: 10/14/16 08:01 Last Admin: 10/12/16 08:57 Dose: 500 mg Nifedipine (Procardia Xl) 30 mg PO QDAY [facility] Last Admin: 10/12/16 09:06 Dose: Not Given Nystatin (Nystop) 1 applic TP BID [facility] Last Admin: 10/12/16 08:59 Dose: 1 applic Scopolamine (Transderm-Scop) 1 each TD Q3D [facility] Last Admin: 10/09/16 22:49 Dose: 1 each Senna (Senokot) 8.6 mg PO QHS [facility] Last Admin: 10/11/16 21:45 Dose: Not Given Silver Sulfadiazine (Thermazene 50 Gram) 1 applic TP BID [facility] Last Admin: 10/12/16 09:01 Dose: 1 applic Simvastatin (Zocor) 40 mg PO QHS [facility] Last Admin: 10/11/16 21:42 Dose: 40 mg Tramadol HCl (Ultram) 50 mg PO Q6H PRN PRN Reason: Pain, Moderate (4-6) Last Admin: 10/12/16 11:22 Dose: 50 mg
[2016-10-12] MEDS ORDERED: NACL 0.9 (PRIMING MACHINE ONLY DIALYSIS) MC ONE (16:14)
[2016-10-12] MEDS: HEPARIN IV PRN (18:58)
[2016-10-12] MEDS: ZOCOR PO SCH (22:22)
[2016-10-12] MEDS: SENOKOT PO SCH (22:22)
[2016-10-12] MEDS: TRANSDERM-SCOP TD SCH (22:23)
[2016-10-13] MEDS: FLAGYL PO SCH ×2 (07:58→22:18)
[2016-10-13] MEDS: ULTRAM PO PRN ×2 (07:58→15:13)
[2016-10-13] MEDS: KEPPRA PO SCH ×2 (07:58→21:56)
[2016-10-13] MEDS: PROCARDIA XL PO SCH ×2 (07:59→21:57)
[2016-10-13] MEDS: ZESTRIL PO SCH (07:59)
[2016-10-13] MEDS: ASPIRIN PO SCH (08:00)
[2016-10-13] MEDS: PEPCID PO SCH (08:00)
[2016-10-13] MEDS: NOVOLOG SUB-Q SCH ×7 (08:03→22:17)
[2016-10-13] MEDS: THERMAZENE 50 GRAM TP SCH ×2 (08:07→22:18)
[2016-10-13] MEDS: NYSTOP TP SCH ×2 (08:07→22:17)
[2016-10-13] MEDS: HEPARIN SUB-Q SCH ×2 (13:49→21:59)
--- NOTE | 2016-10-13 14:26 | Progress Note ---
Assessment and Plan 36 y.o. female s/p intractable status epilepticus on presentation; s/p acute respiratory failure requiring intubation, acute metabolic encephalopathy, GN bacteremia, +E.Faecalis in urine, hypokalemia, left arm cellulitis. Pt later noted to have acute CVA at anterior corpus callosum and left parietal periventricular white matter, subacute bilateral parietal lobe infarcts, and acute onset of BLE numbness and paralysis thought to be secondary to thoracic cord infarction from hypotension; also with mobile vegetation on permacath wire in right atrium; permacath replaced/resolved on 09/29 - thoracic cord infarction- bowel/bladder management; last BM on 10/11 - appreciate wound care nurse F/U- betadine to bilateral heels; nurses educated again on need for heel boots/floating heels when in bed - sepsis- resolved; appreciate ID consult - acute CVA at anterior corpus callosum and left parietal periventricular white matter; subacute bilateral parietal lobe infarcts- ASA, statin - seizure disorder- keppra; seizure precautions; no seizures since admission - HTN- fluctuating BP overnight, continue to follow; IM managing - DM- remains uncontrolled; on diabetic diet; IM managing, levemir increased on yesterday - ESRD- on HD, MWF; Nephrology following - DVT px- heparin - team conference held on today- on admission, pt required Supervision for Eating and grooming; modA for UB Dressing; max-totalA for remaining ADLs. At last conference (10/06/2016), pt noted to be s/u for eating, Ananya for grooming, modA for UB dressing; maxA for bathing, sliding board transfers, and bed mobility; totalA for LB dressing, toileting, toilet transfers; MaxA for sitting balance. On today, pt is supervision for eating and grooming, po intake has improved; SBA to min for wheelchair mobility; remains modA for UB dressing; remains maxA for bathing, sliding board transfers, and bed mobility; remains totalA for LB dressing, toileting, toilet transfers. Barriers- decreased motivation; resolved sepsis (since last conference); ongoing paraplegia. Pt continues to require significant assistance with self cares, non-ambulatory; limited improvement since last conference and will require 24/7 assistance at time of discharge. CM to discuss placement options with parents if unable to care for patient at home. - Patient Problems (1) Spinal cord infarction Current Visit: No Status: Acute (2) CVA (cerebral vascular accident) Current Visit: Yes Status: Acute Qualifiers: CVA mechanism: other Precerebral and cerebral artery: P Laterality of affected vessel: L Qualified Code(s): I63.8 - Other cerebral infarction (3) Seizure Current Visit: No Status: Acute (4) Diabetes Current Visit: Yes Status: Chronic Qualifiers: Diabetes mellitus type: type 2 Diabetes mellitus complication status: with hyperglycemia Diabetes mellitus complication detail: D Diabetic retinopathy severity: D Proliferative retinopathy type: P Diabetes mellitus macular edema: D Diabetes mellitus correction insulin use: with oysterman use Laterality: L Chronic kidney disease stage: C Qualified Code(s): E11.65 - Type 2 diabetes mellitus with hyperglycemia; Z79.4 - laborer marine terminal (current) use of insulin (5) HTN (hypertension) Current Visit: Yes Status: Acute Qualifiers: Hypertension type: essential hypertension Qualified Code(s): I10 - Essential (primary) hypertension (6) ESRD on hemodialysis Current Visit: Yes Status: Chronic Subjective Date of service: 10/13/16 Principal diagnosis: thoracic cord infarction Interval history: Pt seen in room this AM, F/U IPR course, s/p thoracic cord infarction and acute CVAs. Pt with increased blood sugars this AM; fluctuating blood pressures post- dialysis. Wound care nursing to evaluate heels today Objective - Constitutional Vitals: Vital Signs - 12hr 10/13/16 10/13/16 10/13/16 07:19 07:20 07:59 Temperature 99.5 F Pulse Rate 86 Pulse Rate [ 86 Left Brachial] Respiratory 20 Rate Blood Pressure 184/84 Blood Pressure 184/84 [Left Arm] O2 Sat by Pulse 98 Oximetry General appearance: Present: no acute distress - EENT Eyes: EOM intact ENT: hearing intact - Neck Neck: supple, normal ROM - Respiratory Respiratory effort: normal Extremities: No edema - Gastrointestinal General gastrointestinal: Present: soft, non-tender - Integumentary Integumentary: dry - Neurologic Neurologic: CNII-XII intact, other (unchanged BLE; no tone/spasticity with PROM) - Psychiatric Psychiatric: cooperative (remains with flat affect) - Labs CBC & Chem 7: 10/12/16 09:04 10/12/16 09:04 Labs: Abnormal lab results 10/12/16 10/12/16 10/13/16 Range/Units 11:41 22:16 06:59 POC Glucose 212 H 366 H 418 H (70-105) 10/13/16 Range/Units 11:57 POC Glucose 294 H (70-105)
[2016-10-13] MEDS ORDERED: LEVEMIR SUB-Q SCH (14:37)
--- NOTE | 2016-10-13 17:20 | Progress Note ---
Assessment and Plan Assessment and plan: 36-year-old woman status post thoracic cord infarction and acute CVA who is now paraplegic in acute rehabilitation for aggressive rehabilitation. Medicine consulted for management of hypotension and presumed sepsis. 1. Severe sepsis, septic shock with hypotension -BP improved with IVF resuscitation and prbc Continue sepsis pathway, she does have Gardnerella vaginalis UTI, continue metronidazole 7 days, till 10/14 chest x-ray was negative for pneumonia on 10/07, follow-up blood cultures from 10/06 and 10/07, NGTD Also notes there was a vegetation seen on permacath which was exchanged on however blood cultures from that time were negative Blood cx continue to be negative, only identified source is the UTI, de- escalate abx to metronidazole for BV, Abx to be continued till 10/14/16 to complete 7 day course, all other abx DC per Dr Ogden 2. Accelerated HTN optimize oral meds (Will not give clonidine again, as she is at risk for hypotension and rebound htn) 3. DM type 2- insulin dependent Still hyperglycemic, continue to optimize insulins 4. ESRD, CKD stage 5 on HD - continue HD 5. Anemia of Chronic disease -Status post transfusion with appropriate rise in hemoglobin 6. Hypotension Most likely due to sepsis and polypharmacy , BP now elevated 7. Depression if patient is agreeable, she may benefit from Psychiatry evaluation History Interval history: She states that she feels much better today, denies cough, shortness of breath has now resolved. Denies fever, she feels that she is improving. Hospitalist Physical - Physical exam Narrative exam: General: appears well HEENT: MMM, EOMI cardiac: S1-S2 heard lungs: clear to auscultation, abdomen: soft, nontender, nondistended bowel sounds positive extremities: no edema clubbing or cyanosis Skin: no rash or lesion Neuro: Paraplegic Psych: depressed mood, cognition intact - Constitutional Vitals: Temp Pulse Resp BP Pulse Ox 99.5 F 86 20 184/84 98 10/13/16 07:19 10/13/16 07:59 10/13/16 07:19 10/13/16 07:59 10/13/16 07:19 General appearance: Present: no acute distress Results - Labs CBC & Chem 7: 10/12/16 09:04 10/12/16 09:04 Labs: Laboratory Last Values WBC 20.7 K/mm3 (4.5-11.0) H 10/12/16 09:04 RBC 3.48 M/mm3 (3.65-5.03) L 10/12/16 09:04 Hgb 9.2 gm/dl (10.1-14.3) L 10/12/16 09:04 Hct 31.0 % (30.3-42.9) 10/12/16 09:04 MCV 89 fl (79-97) 10/12/16 09:04 MCH 27 pg (28-32) L 10/12/16 09:04 MCHC 30 % (30-34) 10/12/16 09:04 RDW 17.0 % (13.2-15.2) H 10/12/16 09:04 Plt Count 268 K/mm3 (140-440) 10/12/16 09:04 Lymph % (Auto) 5.6 % (13.4-35.0) L 10/03/16 08:44 [place] % (Auto) 7.9 % (0.0-7.3) H 10/03/16 08:44 Eos % (Auto) 4.6 % (0.0-4.3) H 10/03/16 08:44 Baso % (Auto) 1.4 % (0.0-1.8) 10/03/16 08:44 Lymph # 0.6 K/mm3 (1.2-5.4) L 10/03/16 08:44 [place] # 0.9 K/mm3 (0.0-0.8) H 10/03/16 08:44 Eos # 0.5 K/mm3 (0.0-0.4) H 10/03/16 08:44 Baso # 0.2 K/mm3 (0.0-0.1) H 10/03/16 08:44 Add Manual Diff Complete 10/12/16 09:04 Total Counted 100 10/12/16 09:04 Seg Neutrophils % 80.5 % (40.0-70.0) H 10/03/16 08:44 Seg Neuts % (Manual) 65.0 % (40.0-70.0) 10/12/16 09:04 Band Neutrophils % 1.0 % 10/12/16 09:04 Lymphocytes % (Manual) 11.0 % (13.4-35.0) L 10/12/16 09:04 Reactive Lymphs % (Man) 2.0 % 10/12/16 09:04 Monocytes % (Manual) 7.0 % (0.0-7.3) 10/12/16 09:04 Eosinophils % (Manual) 8.0 % (0.0-4.3) H 10/12/16 09:04 Basophils % (Manual) 2.0 % (0.0-1.8) H 10/12/16 09:04 Metamyelocytes % 4.0 % 10/12/16 09:04 Myelocytes % 0 % 10/12/16 09:04 Promyelocytes % 0 % 10/12/16 09:04 Blast Cells % 0 % 10/12/16 09:04 Nucleated RBC % 1.0 % (0.0-0.9) H 10/12/16 09:04 Seg Neutrophils # 9.0 K/mm3 (1.8-7.7) H 10/03/16 08:44 Seg Neutrophils # Man 0.0 K/mm3 (1.8-7.7) L 10/12/16 09:04 Band Neutrophils # 0.0 K/mm3 10/12/16 09:04 Lymphocytes # (Manual) 0.0 K/mm3 (1.2-5.4) L 10/12/16 09:04 Abs React Lymphs (Man) 0.0 K/mm3 10/12/16 09:04 Monocytes # (Manual) 0.0 K/mm3 (0.0-0.8) 10/12/16 09:04 Eosinophils # (Manual) 0.0 K/mm3 (0.0-0.4) 10/12/16 09:04 Basophils # (Manual) 0.0 K/mm3 (0.0-0.1) 10/12/16 09:04 Metamyelocytes # 0.0 K/mm3 10/12/16 09:04 Myelocytes # 0.0 K/mm3 10/12/16 09:04 Promyelocytes # 0.0 K/mm3 10/12/16 09:04 Blast Cells # 0.0 K/mm3 10/12/16 09:04 WBC Morphology Not Reportable 10/12/16 09:04 Hypersegmented Neuts Not Reportable 10/12/16 09:04 Hyposegmented Neuts Not Reportable 10/12/16 09:04 Hypogranular Neuts Not Reportable 10/12/16 09:04 Smudge Cells Not Reportable 10/12/16 09:04 Toxic Granulation Not Reportable 10/12/16 09:04 Toxic Vacuolation Not Reportable 10/12/16 09:04 Dohle Bodies Not Reportable 10/12/16 09:04 Pelger-Huet Anomaly Not Reportable 10/12/16 09:04 Tiffanie Rods Not Reportable 10/12/16 09:04 Platelet Estimate Cons 10/12/16 09:04 Clumped Platelets Not Reportable 10/12/16 09:04 Plt Clumps, EDTA Not Reportable 10/12/16 09:04 Large Platelets Few 10/12/16 09:04 Giant Platelets Not Reportable 10/12/16 09:04 Platelet Satelliting Not Reportable 10/12/16 09:04 Plt Morphology Comment Not Reportable 10/12/16 09:04 RBC Morphology Not Reportable 10/12/16 09:04 Dimorphic RBCs Not Reportable 10/12/16 09:04 Polychromasia Rare 10/12/16 09:04 Hypochromasia Not Reportable 10/12/16 09:04 Poikilocytosis Not Reportable 10/12/16 09:04 Anisocytosis 1+ 10/12/16 09:04 Microcytosis Not Reportable 10/12/16 09:04 Macrocytosis Not Reportable 10/12/16 09:04 Spherocytes Not Reportable 10/12/16 09:04 Pappenheimer Bodies Not Reportable 10/12/16 09:04 Sickle Cells Not Reportable 10/12/16 09:04 Target Cells Not Reportable 10/12/16 09:04 Tear Drop Cells Not Reportable 10/12/16 09:04 Ovalocytes Not Reportable 10/12/16 09:04 Helmet Cells Not Reportable 10/12/16 09:04 Lutz-Creola Bodies Not Reportable 10/12/16 09:04 Frederick Rings Not Reportable 10/12/16 09:04 Damon Cells Not Reportable 10/12/16 09:04 Bite Cells Not Reportable 10/12/16 09:04 Crenated Cell Not Reportable 10/12/16 09:04 Elliptocytes Not Reportable 10/12/16 09:04 Acanthocytes (Spur) Not Reportable 10/12/16 09:04 Rouleaux Not Reportable 10/12/16 09:04 Hemoglobin C Crystals Not Reportable 10/12/16 09:04 Schistocytes Not Reportable 10/12/16 09:04 Malaria parasites Not Reportable 10/12/16 09:04 Angel Bodies Not Reportable 10/12/16 09:04 Hem Pathologist Commnt No 10/12/16 09:04 Sodium 140 mmol/L (137-145) 10/12/16 09:04 Potassium 3.3 mmol/L (3.6-5.0) L 10/12/16 09:04 Chloride 98.4 mmol/L (98-107) 10/12/16 09:04 Carbon Dioxide 24 mmol/L (22-30) 10/12/16 09:04 Anion Gap 21 mmol/L 10/12/16 09:04 BUN 36 mg/dL (7-17) H 10/12/16 09:04 Creatinine 6.8 mg/dL (0.7-1.2) H 10/12/16 09:04 Estimated GFR 8 ml/min 10/12/16 09:04 BUN/Creatinine Ratio 5.29 % 10/12/16 09:04 Glucose 244 mg/dL (65-100) H 10/12/16 09:04 POC Glucose 313 (70-105) H 10/13/16 16:44 Calcium 8.7 mg/dL (8.4-10.2) 10/12/16 09:04 Total Bilirubin < 0.20 mg/dL (0.1-1.2) 10/01/16 05:15 AST 12 units/L (5-40) 10/01/16 05:15 ALT < 5 units/L (7-56) L 10/01/16 05:15 Alkaline Phosphatase 110 units/L (35-129) 10/01/16 05:15 Total Protein 6.8 g/dL (6.3-8.2) 10/01/16 05:15 Albumin 2.6 g/dL (3.9-5) L 10/01/16 05:15 Albumin/Globulin Ratio 0.6 % 10/01/16 05:15 Urine Color Yellow (Yellow) 10/02/16 11:31 Urine Turbidity Turbid (Clear) 10/02/16 11:31 Urine pH 6.0 (5.0-7.0) 10/02/16 11:31 Ur Specific [place] 1.018 (1.003-1.030) 10/02/16 11:31 Urine Protein 100 mg/dl mg/dL (Negative) 10/02/16 11:31 Urine Glucose (UA) Neg mg/dL (Negative) 10/02/16 11:31 Urine Ketones Neg mg/dL (Negative) 10/02/16 11:31 Urine Blood Mod (Negative) 10/02/16 11:31 Urine Nitrite Neg (Negative) 10/02/16 11:31 Urine Bilirubin Neg (Negative) 10/02/16 11:31 Urine Urobilinogen < 2.0 mg/dL (<2.0) 10/02/16 11:31 Ur Leukocyte Esterase Lg (Negative) 10/02/16 11:31 Urine WBC (Auto) > 182.0 /HPF (0.0-6.0) H 10/02/16 11:31 Urine RBC (Auto) 68.0 /HPF (0.0-6.0) 10/02/16 11:31 U Epithel Cells (Auto) 3.0 /HPF (0-13.0) 10/02/16 11:31 Urine Bacteria (Auto) 3+ /HPF (Negative) 10/02/16 11:31 Blood Type O POSITIVE 10/07/16 14:20 Antibody Screen TNR 10/07/16 14:20 SHAHEED Antibody Screen Negative 10/07/16 14:20 Crossmatch See Detail 10/07/16 14:20
[2016-10-13] MEDS: ZOCOR PO SCH (21:56)
[2016-10-13] MEDS: SENOKOT PO SCH (21:57)
[2016-10-14] MEDS: NOVOLOG SUB-Q SCH ×7 (09:03→22:26)
[2016-10-14] MEDS: FLAGYL PO SCH (09:29)
[2016-10-14] MEDS: KEPPRA PO SCH ×2 (09:29→22:20)
[2016-10-14] MEDS: PEPCID PO SCH (09:29)
[2016-10-14] MEDS: ASPIRIN PO SCH (09:29)
[2016-10-14] MEDS: THERMAZENE 50 GRAM TP SCH ×2 (10:00→22:22)
[2016-10-14] MEDS: NYSTOP TP SCH ×2 (10:00→22:24)
[2016-10-14] MEDS: HEPARIN SUB-Q SCH ×2 (10:08→22:21)
--- NOTE | 2016-10-14 11:30 | Progress Note ---
Assessment and Plan Physical examination Vitals reviewed HEENT:Mild pallor no icterus Neck: Supple no thyromegaly or nodular mass Chest: Clear to auscultation,permacath site unremarkable Heart:Regular rate rhythm S1-S2 heard Abdomen: Soft nontender no voluntary guarding rigidity rebound Extremities minimal edema dry skin Neurological alert awake oriented Dermatology dry skin assessment and plan End-stage renal disease patient is currently on maintenance hemodialysis on Wednesday and Wednesday schedule Patient is tolerating hemodialysis treatment well Current access is a permacath Mild hypokalemia to follow she is on 3.5 potassium bath Hypertension is to be monitored if it remains elevated adjust blood pressure medication Currently on erythropoietin for anemia Secondary hyperparathyroidism needs periodic monitoring of PTH as well as phosphorus level Paraplegia, Currently in rehabilitation being followed by rehabilitation physician quality related questions were answered. Follow and make recommendation from renal standpoint Subjective Principal diagnosis: thoracic cord infarction Interval history: seen today for follow-up no acute complaints She is currently in dialysis on Wednesday Vitals labs intake output medications were reviewed Objective - Vital Signs Vital signs: Vital Signs - 12hr 10/14/16 08:00 Temperature 98.1 F Pulse Rate [ 82 Left Brachial] Respiratory 20 Rate Blood Pressure 160/82 [Right Arm] O2 Sat by Pulse 82 L Oximetry - Lab 10/14/16 15:18 10/14/16 20:30 Most recent lab results Calcium 8.7 mg/dL (8.4-10.2) 10/12/16 09:04
--- NOTE | 2016-10-14 12:44 | Progress Note ---
Assessment and Plan 36 y.o. female s/p intractable status epilepticus on presentation; s/p acute respiratory failure requiring intubation, acute metabolic encephalopathy, GN bacteremia, +E.Faecalis in urine, hypokalemia, left arm cellulitis. Pt later noted to have acute CVA at anterior corpus callosum and left parietal periventricular white matter, subacute bilateral parietal lobe infarcts, and acute onset of BLE numbness and paralysis thought to be secondary to thoracic cord infarction from hypotension; also with mobile vegetation on permacath wire in right atrium; permacath replaced/resolved on 09/29 - thoracic cord infarction- bowel/bladder management; last BM on 10/13 - continue daily wound care - acute CVA at anterior corpus callosum and left parietal periventricular white matter; subacute bilateral parietal lobe infarcts- ASA, statin - seizure disorder- keppra; seizure precautions; no seizures since admission - HTN- continue current meds; IM managing - DM- ongoing med adjustments per IM, noted med changes - ESRD- on HD, MWF; Nephrology following - DVT px- heparin - Patient Problems (1) Spinal cord infarction Current Visit: No Status: Acute (2) CVA (cerebral vascular accident) Current Visit: Yes Status: Acute Qualifiers: CVA mechanism: other Precerebral and cerebral artery: P Laterality of affected vessel: L Qualified Code(s): I63.8 - Other cerebral infarction (3) Seizure Current Visit: No Status: Acute (4) Diabetes Current Visit: Yes Status: Chronic Qualifiers: Diabetes mellitus type: type 2 Diabetes mellitus complication status: with hyperglycemia Diabetes mellitus complication detail: D Diabetic retinopathy severity: D Proliferative retinopathy type: P Diabetes mellitus macular edema: D Diabetes mellitus 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 Continues with uncontrolled blood sugars; noted med adjustments per IM. Pt is without any new complaints on today Objective - Constitutional Vitals: Vital Signs - 12hr 10/14/16 08:00 Temperature 98.1 F Pulse Rate [ 82 Left Brachial] Respiratory 20 Rate Blood Pressure 160/82 [Right Arm] O2 Sat by Pulse 82 L Oximetry General appearance: Present: no acute distress, obese - EENT Eyes: EOM intact ENT: hearing intact - Neck Neck: supple, normal ROM - Respiratory Respiratory effort: normal Respiratory: bilateral: CTA - Cardiovascular Rhythm: regular Heart Sounds: Present: S1 & S2 - Gastrointestinal General gastrointestinal: Present: soft, non-tender, non-distended, normal bowel sounds - Neurologic Neurologic: CNII-XII intact - Psychiatric Psychiatric: cooperative - Allied health notes Allied health notes reviewed: PT (decreased endurance; continue to address sitting balance) - Labs CBC & Chem 7: 10/12/16 09:04 10/12/16 09:04 Labs: Abnormal lab results 10/13/16 10/13/16 10/13/16 Range/Units 11:57 16:44 21:10 POC Glucose 294 H 313 H 247 H (70-105) 10/14/16 10/14/16 Range/Units 06:28 12:02 POC Glucose 243 H 155 H (70-105)
[2016-10-14] MEDS: PROCARDIA XL PO SCH ×2 (13:18→22:21)
[2016-10-14] MEDS: ZESTRIL PO SCH (13:18)
[2016-10-14 15:32] LABS: Hematocrit 30.1 % (30.3-42.9); Hemoglobin 9.2 gm/dl (10.1-14.3); Mean Corpuscular HGB Conc 31 % (30-34); Mean Corpuscular Hemoglobin 27 pg (28-32); Mean Corpuscular Volume 87 fl (79-97); Platelet Count 246 K/mm3 (140-440); Red Blood Count 3.47 M/mm3 (3.65-5.03); White Blood Count 13.3 K/mm3 (4.5-11.0)
[2016-10-14] MEDS ORDERED: NACL 0.9 (PRIMING MACHINE ONLY DIALYSIS) MC ONE (16:11)
--- NOTE | 2016-10-14 16:16 | Progress Note ---
Assessment and Plan Assessment and plan: 36-year-old woman status post thoracic cord infarction and acute CVA who is now paraplegic in acute rehabilitation for aggressive rehabilitation. Medicine consulted for management of hypotension and presumed sepsis. 1. Severe sepsis, septic shock with hypotension -BP improved with IVF resuscitation and prbc Continue sepsis pathway, she does have Gardnerella vaginalis UTI, continue metronidazole 7 days, till 10/14 chest x-ray was negative for pneumonia on 10/07, follow-up blood cultures from 10/06 and 10/07, NGTD Also notes there was a vegetation seen on permacath which was exchanged on however blood cultures from that time were negative Blood cx continue to be negative, only identified source is the UTI, de- escalate abx to metronidazole for BV, completed a 7 day course, all other abx DC per Dr Ogden continue to follow up abx 2. Accelerated HTN optimize oral meds (Will not give clonidine again, as she is at risk for hypotension and rebound htn) BP better controlled today, continue current meds 3. DM type 2- insulin dependent Still hyperglycemic, but improving, continue to optimize insulins 4. ESRD, CKD stage 5 on HD - continue HD 5. Anemia of Chronic disease -Status post transfusion with appropriate rise in hemoglobin 6. Hypotension Most likely due to sepsis and polypharmacy, now resolved 7. Depression most likely situation, improving History Interval history: She states that she feels much better today, denies cough, shortness of breath has now resolved. Denies fever, she feels that she is improving. Hospitalist Physical - Physical exam Narrative exam: General: appears well HEENT: MMM, EOMI cardiac: S1-S2 heard lungs: clear to auscultation, abdomen: soft, nontender, nondistended bowel sounds positive extremities: no edema clubbing or cyanosis Skin: no rash or lesion Neuro: Paraplegic Psych: appropriate mood, cognition intact - Constitutional Vitals: Temp Pulse Resp BP Pulse Ox 98.4 F 77 20 115/68 82 L 10/14/16 13:30 10/14/16 16:00 10/14/16 13:30 10/14/16 16:00 10/14/16 08:00 General appearance: Present: no acute distress, obese Results - Labs CBC & Chem 7: 10/14/16 15:18 10/12/16 09:04 Labs: Laboratory Last Values WBC 13.3 K/mm3 (4.5-11.0) H 10/14/16 15:18 RBC 3.47 M/mm3 (3.65-5.03) L 10/14/16 15:18 Hgb 9.2 gm/dl (10.1-14.3) L 10/14/16 15:18 Hct 30.1 % (30.3-42.9) L 10/14/16 15:18 MCV 87 fl (79-97) 10/14/16 15:18 MCH 27 pg (28-32) L 10/14/16 15:18 MCHC 31 % (30-34) 10/14/16 15:18 RDW 17.0 % (13.2-15.2) H 10/14/16 15:18 Plt Count 246 K/mm3 (140-440) 10/14/16 15:18 Lymph % (Auto) 5.6 % (13.4-35.0) L 10/03/16 08:44 [place] % (Auto) 7.9 % (0.0-7.3) H 10/03/16 08:44 Eos % (Auto) 4.6 % (0.0-4.3) H 10/03/16 08:44 Baso % (Auto) 1.4 % (0.0-1.8) 10/03/16 08:44 Lymph # 0.6 K/mm3 (1.2-5.4) L 10/03/16 08:44 [place] # 0.9 K/mm3 (0.0-0.8) H 10/03/16 08:44 Eos # 0.5 K/mm3 (0.0-0.4) H 10/03/16 08:44 Baso # 0.2 K/mm3 (0.0-0.1) H 10/03/16 08:44 Add Manual Diff Complete 10/12/16 09:04 Total Counted 100 10/12/16 09:04 Seg Neutrophils % 80.5 % (40.0-70.0) H 10/03/16 08:44 Seg Neuts % (Manual) 65.0 % (40.0-70.0) 10/12/16 09:04 Band Neutrophils % 1.0 % 10/12/16 09:04 Lymphocytes % (Manual) 11.0 % (13.4-35.0) L 10/12/16 09:04 Reactive Lymphs % (Man) 2.0 % 10/12/16 09:04 Monocytes % (Manual) 7.0 % (0.0-7.3) 10/12/16 09:04 Eosinophils % (Manual) 8.0 % (0.0-4.3) H 10/12/16 09:04 Basophils % (Manual) 2.0 % (0.0-1.8) H 10/12/16 09:04 Metamyelocytes % 4.0 % 10/12/16 09:04 Myelocytes % 0 % 10/12/16 09:04 Promyelocytes % 0 % 10/12/16 09:04 Blast Cells % 0 % 10/12/16 09:04 Nucleated RBC % 1.0 % (0.0-0.9) H 10/12/16 09:04 Seg Neutrophils # 9.0 K/mm3 (1.8-7.7) H 10/03/16 08:44 Seg Neutrophils # Man 0.0 K/mm3 (1.8-7.7) L 10/12/16 09:04 Band Neutrophils # 0.0 K/mm3 10/12/16 09:04 Lymphocytes # (Manual) 0.0 K/mm3 (1.2-5.4) L 10/12/16 09:04 Abs React Lymphs (Man) 0.0 K/mm3 10/12/16 09:04 Monocytes # (Manual) 0.0 K/mm3 (0.0-0.8) 10/12/16 09:04 Eosinophils # (Manual) 0.0 K/mm3 (0.0-0.4) 10/12/16 09:04 Basophils # (Manual) 0.0 K/mm3 (0.0-0.1) 10/12/16 09:04 Metamyelocytes # 0.0 K/mm3 10/12/16 09:04 Myelocytes # 0.0 K/mm3 10/12/16 09:04 Promyelocytes # 0.0 K/mm3 10/12/16 09:04 Blast Cells # 0.0 K/mm3 10/12/16 09:04 WBC Morphology Not Reportable 10/12/16 09:04 Hypersegmented Neuts Not Reportable 10/12/16 09:04 Hyposegmented Neuts Not Reportable 10/12/16 09:04 Hypogranular Neuts Not Reportable 10/12/16 09:04 Smudge Cells Not Reportable 10/12/16 09:04 Toxic Granulation Not Reportable 10/12/16 09:04 Toxic Vacuolation Not Reportable 10/12/16 09:04 Dohle Bodies Not Reportable 10/12/16 09:04 Pelger-Huet Anomaly Not Reportable 10/12/16 09:04 Tiffanie Rods Not Reportable 10/12/16 09:04 Platelet Estimate Cons 10/12/16 09:04 Clumped Platelets Not Reportable 10/12/16 09:04 Plt Clumps, EDTA Not Reportable 10/12/16 09:04 Large Platelets Few 10/12/16 09:04 Giant Platelets Not Reportable 10/12/16 09:04 Platelet Satelliting Not Reportable 10/12/16 09:04 Plt Morphology Comment Not Reportable 10/12/16 09:04 RBC Morphology Not Reportable 10/12/16 09:04 Dimorphic RBCs Not Reportable 10/12/16 09:04 Polychromasia Rare 10/12/16 09:04 Hypochromasia Not Reportable 10/12/16 09:04 Poikilocytosis Not Reportable 10/12/16 09:04 Anisocytosis 1+ 10/12/16 09:04 Microcytosis Not Reportable 10/12/16 09:04 Macrocytosis Not Reportable 10/12/16 09:04 Spherocytes Not Reportable 10/12/16 09:04 Pappenheimer Bodies Not Reportable 10/12/16 09:04 Sickle Cells Not Reportable 10/12/16 09:04 Target Cells Not Reportable 10/12/16 09:04 Tear Drop Cells Not Reportable 10/12/16 09:04 Ovalocytes Not Reportable 10/12/16 09:04 Helmet Cells Not Reportable 10/12/16 09:04 Lutz-[place] Bodies Not Reportable 10/12/16 09:04 [place] Rings Not Reportable 10/12/16 09:04 Damon Cells Not Reportable 10/12/16 09:04 Bite Cells Not Reportable 10/12/16 09:04 Crenated Cell Not Reportable 10/12/16 09:04 Elliptocytes Not Reportable 10/12/16 09:04 Acanthocytes (Spur) Not Reportable 10/12/16 09:04 Rouleaux Not Reportable 10/12/16 09:04 Hemoglobin C Crystals Not Reportable 10/12/16 09:04 Schistocytes Not Reportable 10/12/16 09:04 Malaria parasites Not Reportable 10/12/16 09:04 Angel Bodies Not Reportable 10/12/16 09:04 Hem Pathologist Commnt No 10/12/16 09:04 Sodium 140 mmol/L (137-145) 10/12/16 09:04 Potassium 3.3 mmol/L (3.6-5.0) L 10/12/16 09:04 Chloride 98.4 mmol/L (98-107) 10/12/16 09:04 Carbon Dioxide 24 mmol/L (22-30) 10/12/16 09:04 Anion Gap 21 mmol/L 10/12/16 09:04 BUN 36 mg/dL (7-17) H 10/12/16 09:04 Creatinine 6.8 mg/dL (0.7-1.2) H 10/12/16 09:04 Estimated GFR 8 ml/min 10/12/16 09:04 BUN/Creatinine Ratio 5.29 % 10/12/16 09:04 Glucose 244 mg/dL (65-100) H 10/12/16 09:04 POC Glucose 155 (70-105) H 10/14/16 12:02 Calcium 8.7 mg/dL (8.4-10.2) 10/12/16 09:04 Total Bilirubin < 0.20 mg/dL (0.1-1.2) 10/01/16 05:15 AST 12 units/L (5-40) 10/01/16 05:15 ALT < 5 units/L (7-56) L 10/01/16 05:15 Alkaline Phosphatase 110 units/L (35-129) 10/01/16 05:15 Total Protein 6.8 g/dL (6.3-8.2) 10/01/16 05:15 Albumin 2.6 g/dL (3.9-5) L 10/01/16 05:15 Albumin/Globulin Ratio 0.6 % 10/01/16 05:15 Urine Color Yellow (Yellow) 10/02/16 11:31 Urine Turbidity Turbid (Clear) 10/02/16 11:31 Urine pH 6.0 (5.0-7.0) 10/02/16 11:31 Ur Specific [place] 1.018 (1.003-1.030) 10/02/16 11:31 Urine Protein 100 mg/dl mg/dL (Negative) 10/02/16 11:31 Urine Glucose (UA) Neg mg/dL (Negative) 10/02/16 11:31 Urine Ketones Neg mg/dL (Negative) 10/02/16 11:31 Urine Blood Mod (Negative) 10/02/16 11:31 Urine Nitrite Neg (Negative) 10/02/16 11:31 Urine Bilirubin Neg (Negative) 10/02/16 11:31 Urine Urobilinogen < 2.0 mg/dL (<2.0) 10/02/16 11:31 Ur Leukocyte Esterase Lg (Negative) 10/02/16 11:31 Urine WBC (Auto) > 182.0 /HPF (0.0-6.0) H 10/02/16 11:31 Urine RBC (Auto) 68.0 /HPF (0.0-6.0) 10/02/16 11:31 U Epithel Cells (Auto) 3.0 /HPF (0-13.0) 10/02/16 11:31 Urine Bacteria (Auto) 3+ /HPF (Negative) 10/02/16 11:31 Blood Type O POSITIVE 10/07/16 14:20 Antibody Screen TNR 10/07/16 14:20 SHAHEED Antibody Screen Negative 10/07/16 14:20 Crossmatch See Detail 10/07/16 14:20
[2016-10-14 16:20] LABS: Basophils % (Manual) 0 % (0.0-1.8); Blastocytes % (Manual) 0 %
[2016-10-14 16:21] LABS: Anisocytosis 1+; Diff Status Complete; Large Platelets 1+; Platelet Estimate Consistent w Auto; Poikilocytosis 1+
[2016-10-14] MEDS: HEPARIN IV PRN (16:54)
[2016-10-14] MEDS ORDERED: LEVEMIR SUB-Q SCH (21:00)
[2016-10-14 21:12] LABS: BUN/Creatinine Ratio 4.37; Calcium 8.8 mg/dL (8.4-10.2); Chloride 95.7 mmol/L (98-107); Potassium 3.3 mmol/L (3.6-5.0)
[2016-10-14] MEDS: ZOCOR PO SCH (22:20)
[2016-10-14] MEDS: SENOKOT PO SCH (22:20)
--- NOTE | 2016-10-15 08:52 | Progress Note ---
Assessment and Plan Assessment and plan: 36-year-old woman status post thoracic cord infarction and acute CVA who is now paraplegic in acute rehabilitation for aggressive rehabilitation. Medicine consulted for management of hypotension and presumed sepsis. 1. Severe sepsis, septic shock with hypotension -BP improved with IVF resuscitation and prbc Continue sepsis pathway, she does have Gardnerella vaginalis UTI, completed metronidazole 7 days on 10/14 chest x-ray was negative for pneumonia on 10/07, reviewed blood cultures from 10/06 and 10/07, NGTD Also notes there was a vegetation seen on permacath which was exchanged on however blood cultures from that time were negative Blood cx were negative only identified source is the UTI, completed 7 day course of flagyl as above, all other abx DC per Dr Ogden continue to follow up abx 2. Accelerated HTN optimize oral meds (Will not give clonidine again, as she is at risk for hypotension and rebound htn) BP better controlled today, continue current meds 3. DM type 2- insulin dependent Still hyperglycemic, but improving, continue to optimize insulins 4. ESRD, CKD stage 5 on HD - continue HD 5. Anemia of Chronic disease -Status post transfusion with appropriate rise in hemoglobin 6. Hypotension Most likely due to sepsis and polypharmacy, now resolved 7. Depression most likely situation, improving History Interval history: She states that she feels much better today, denies cough, shortness of breath has now resolved. Denies fever, she feels that she is improving. Hospitalist Physical - Physical exam Narrative exam: General: appears well HEENT: MMM, EOMI cardiac: S1-S2 heard lungs: clear to auscultation, abdomen: soft, nontender, nondistended bowel sounds positive extremities: no edema clubbing or cyanosis Skin: no rash or lesion Neuro: Paraplegic Psych: appropriate mood, cognition intact - Constitutional Vitals: Temp Pulse Resp BP Pulse Ox 98.7 F 79 20 127/78 99 10/14/16 20:00 10/14/16 20:00 10/14/16 22:00 10/14/16 20:00 10/14/16 22:00 General appearance: Present: no acute distress, obese Results - Labs CBC & Chem 7: 10/14/16 15:18 10/14/16 20:30 Labs: Laboratory Last Values WBC 13.3 K/mm3 (4.5-11.0) H 10/14/16 15:18 RBC 3.47 M/mm3 (3.65-5.03) L 10/14/16 15:18 Hgb 9.2 gm/dl (10.1-14.3) L 10/14/16 15:18 Hct 30.1 % (30.3-42.9) L 10/14/16 15:18 MCV 87 fl (79-97) 10/14/16 15:18 MCH 27 pg (28-32) L 10/14/16 15:18 MCHC 31 % (30-34) 10/14/16 15:18 RDW 17.0 % (13.2-15.2) H 10/14/16 15:18 Plt Count 246 K/mm3 (140-440) 10/14/16 15:18 Lymph % (Auto) 5.6 % (13.4-35.0) L 10/03/16 08:44 [place] % (Auto) 7.9 % (0.0-7.3) H 10/03/16 08:44 Eos % (Auto) 4.6 % (0.0-4.3) H 10/03/16 08:44 Baso % (Auto) 1.4 % (0.0-1.8) 10/03/16 08:44 Lymph # 0.6 K/mm3 (1.2-5.4) L 10/03/16 08:44 [place] # 0.9 K/mm3 (0.0-0.8) H 10/03/16 08:44 Eos # 0.5 K/mm3 (0.0-0.4) H 10/03/16 08:44 Baso # 0.2 K/mm3 (0.0-0.1) H 10/03/16 08:44 Add Manual Diff Complete 10/14/16 15:18 Total Counted 100 10/14/16 15:18 Seg Neutrophils % 80.5 % (40.0-70.0) H 10/03/16 08:44 Seg Neuts % (Manual) 60.0 % (40.0-70.0) 10/14/16 15:18 Band Neutrophils % 1.0 % 10/14/16 15:18 Lymphocytes % (Manual) 16.0 % (13.4-35.0) 10/14/16 15:18 Reactive Lymphs % (Man) 0 % 10/14/16 15:18 Monocytes % (Manual) 8.0 % (0.0-7.3) H 10/14/16 15:18 Eosinophils % (Manual) 13.0 % (0.0-4.3) H 10/14/16 15:18 Basophils % (Manual) 0 % (0.0-1.8) 10/14/16 15:18 Metamyelocytes % 1.0 % 10/14/16 15:18 Myelocytes % 1.0 % 10/14/16 15:18 Promyelocytes % 0 % 10/14/16 15:18 Blast Cells % 0 % 10/14/16 15:18 Nucleated RBC % 2.0 % (0.0-0.9) H 10/14/16 15:18 Seg Neutrophils # 9.0 K/mm3 (1.8-7.7) H 10/03/16 08:44 Seg Neutrophils # Man 8.0 K/mm3 (1.8-7.7) H 10/14/16 15:18 Band Neutrophils # 0.1 K/mm3 10/14/16 15:18 Lymphocytes # (Manual) 2.1 K/mm3 (1.2-5.4) 10/14/16 15:18 Abs React Lymphs (Man) 0.0 K/mm3 10/14/16 15:18 Monocytes # (Manual) 1.1 K/mm3 (0.0-0.8) H 10/14/16 15:18 Eosinophils # (Manual) 1.7 K/mm3 (0.0-0.4) H 10/14/16 15:18 Basophils # (Manual) 0.0 K/mm3 (0.0-0.1) 10/14/16 15:18 Metamyelocytes # 0.1 K/mm3 10/14/16 15:18 Myelocytes # 0.1 K/mm3 10/14/16 15:18 Promyelocytes # 0.0 K/mm3 10/14/16 15:18 Blast Cells # 0.0 K/mm3 10/14/16 15:18 WBC Morphology Not Reportable 10/14/16 15:18 Hypersegmented Neuts Not Reportable 10/14/16 15:18 Hyposegmented Neuts Not Reportable 10/14/16 15:18 Hypogranular Neuts Not Reportable 10/14/16 15:18 Smudge Cells Not Reportable 10/14/16 15:18 Toxic Granulation Not Reportable 10/14/16 15:18 Toxic Vacuolation Not Reportable 10/14/16 15:18 Dohle Bodies Not Reportable 10/14/16 15:18 Pelger-Huet Anomaly Not Reportable 10/14/16 15:18 Tiffanie Rods Not Reportable 10/14/16 15:18 Platelet Estimate Consistent w auto 10/14/16 15:18 Clumped Platelets Not Reportable 10/14/16 15:18 Plt Clumps, EDTA Not Reportable 10/14/16 15:18 Large Platelets 1+ 10/14/16 15:18 Giant Platelets Not Reportable 10/14/16 15:18 Platelet Satelliting Not Reportable 10/14/16 15:18 Plt Morphology Comment Not Reportable 10/14/16 15:18 RBC Morphology Not Reportable 10/14/16 15:18 Dimorphic RBCs Not Reportable 10/14/16 15:18 Polychromasia Not Reportable 10/14/16 15:18 Hypochromasia Not Reportable 10/14/16 15:18 Poikilocytosis 1+ 10/14/16 15:18 Anisocytosis 1+ 10/14/16 15:18 Microcytosis Not Reportable 10/14/16 15:18 Macrocytosis Not Reportable 10/14/16 15:18 Spherocytes Not Reportable 10/14/16 15:18 Pappenheimer Bodies Not Reportable 10/14/16 15:18 Sickle Cells Not Reportable 10/14/16 15:18 Target Cells Not Reportable 10/14/16 15:18 Tear Drop Cells Not Reportable 10/14/16 15:18 Ovalocytes Not Reportable 10/14/16 15:18 Helmet Cells Not Reportable 10/14/16 15:18 Lutz-[place] Bodies Not Reportable 10/14/16 15:18 [place] Rings Not Reportable 10/14/16 15:18 Damon Cells Not Reportable 10/14/16 15:18 Bite Cells Not Reportable 10/14/16 15:18 Crenated Cell Not Reportable 10/14/16 15:18 Elliptocytes Not Reportable 10/14/16 15:18 Acanthocytes (Spur) Not Reportable 10/14/16 15:18 Rouleaux Not Reportable 10/14/16 15:18 Hemoglobin C Crystals Not Reportable 10/14/16 15:18 Schistocytes Not Reportable 10/14/16 15:18 Malaria parasites Not Reportable 10/14/16 15:18 Angel Bodies Not Reportable 10/14/16 15:18 Hem Pathologist Commnt No 10/14/16 15:18 Sodium 136 mmol/L (137-145) L 10/14/16 20:30 Potassium 3.3 mmol/L (3.6-5.0) L 10/14/16 20:30 Chloride 95.7 mmol/L (98-107) L 10/14/16 20:30 Carbon Dioxide 27 mmol/L (22-30) 10/14/16 20:30 Anion Gap 17 mmol/L 10/14/16 20:30 BUN 14 mg/dL (7-17) 10/14/16 20:30 Creatinine 3.2 mg/dL (0.7-1.2) H D 10/14/16 20:30 Estimated GFR 20 ml/min 10/14/16 20:30 BUN/Creatinine Ratio 4.37 % 10/14/16 20:30 Glucose 197 mg/dL (65-100) H 10/14/16 20:30 POC Glucose 204 (70-105) H 10/15/16 06:28 Calcium 8.8 mg/dL (8.4-10.2) 10/14/16 20:30 Total Bilirubin < 0.20 mg/dL (0.1-1.2) 10/01/16 05:15 AST 12 units/L (5-40) 10/01/16 05:15 ALT < 5 units/L (7-56) L 10/01/16 05:15 Alkaline Phosphatase 110 units/L (35-129) 10/01/16 05:15 Total Protein 6.8 g/dL (6.3-8.2) 10/01/16 05:15 Albumin 2.6 g/dL (3.9-5) L 10/01/16 05:15 Albumin/Globulin Ratio 0.6 % 10/01/16 05:15 Urine Color Yellow (Yellow) 10/02/16 11:31 Urine Turbidity Turbid (Clear) 10/02/16 11:31 Urine pH 6.0 (5.0-7.0) 10/02/16 11:31 Ur Specific [place] 1.018 (1.003-1.030) 10/02/16 11:31 Urine Protein 100 mg/dl mg/dL (Negative) 10/02/16 11:31 Urine Glucose (UA) Neg mg/dL (Negative) 10/02/16 11:31 Urine Ketones Neg mg/dL (Negative) 10/02/16 11:31 Urine Blood Mod (Negative) 10/02/16 11:31 Urine Nitrite Neg (Negative) 10/02/16 11:31 Urine Bilirubin Neg (Negative) 10/02/16 11:31 Urine Urobilinogen < 2.0 mg/dL (<2.0) 10/02/16 11:31 Ur Leukocyte Esterase Lg (Negative) 10/02/16 11:31 Urine WBC (Auto) > 182.0 /HPF (0.0-6.0) H 10/02/16 11:31 Urine RBC (Auto) 68.0 /HPF (0.0-6.0) 10/02/16 11:31 U Epithel Cells (Auto) 3.0 /HPF (0-13.0) 10/02/16 11:31 Urine Bacteria (Auto) 3+ /HPF (Negative) 10/02/16 11:31 Blood Type O POSITIVE 10/07/16 14:20 Antibody Screen TNR 10/07/16 14:20 SHAHEED Antibody Screen Negative 10/07/16 14:20 Crossmatch See Detail 10/07/16 14:20
[2016-10-15] MEDS: ULTRAM PO PRN (09:01)
[2016-10-15] MEDS: KEPPRA PO SCH ×2 (09:02→21:46)
[2016-10-15] MEDS: PEPCID PO SCH (09:02)
[2016-10-15] MEDS: ASPIRIN PO SCH (09:03)
[2016-10-15] MEDS: ZESTRIL PO SCH (09:03)
[2016-10-15] MEDS: HEPARIN SUB-Q SCH ×2 (09:04→21:46)
[2016-10-15] MEDS: NOVOLOG SUB-Q SCH ×7 (09:05→21:49)
[2016-10-15] MEDS: NYSTOP TP SCH ×2 (12:10→21:00)
[2016-10-15] MEDS: PROCARDIA XL PO SCH ×2 (12:10→21:46)
[2016-10-15] MEDS: THERMAZENE 50 GRAM TP SCH ×2 (12:11→21:49)
[2016-10-15] MEDS: LEVEMIR SUB-Q SCH ×2 (12:14→17:52)
--- NOTE | 2016-10-15 12:49 | Progress Note ---
Assessment and Plan Physical examination Vitals reviewed HEENT:Mild pallor no icterus Neck: Supple no thyromegaly or nodular mass Chest: Clear to auscultation,permacath site unremarkable Heart:Regular rate rhythm S1-S2 heard Abdomen: Soft nontender no voluntary guarding rigidity rebound Extremities minimal edema dry skin Neurological alert awake oriented Dermatology dry skin assessment and plan End-stage renal disease patient is currently on maintenance hemodialysis on Wednesday and Wednesday schedule Patient is currently tolerating her dialysis treatment well, she is currently on high-dose erythropoietin her current dialysis accesses in the right chest permacath Accelerated hypertension with some degree of hypokalemia patient is on relatively higher potassium bath We'll like to adjust her blood pressure medication to consistently keep her blood pressure around 140-150 Anemia and end-stage renal disease to monitor and follow Secondary hyperparathyroidism needs periodic monitoring of PTH as well as phosphorus level Paraplegia, Currently in rehabilitation being followed by rehabilitation physician quality related questions were answered. Follow and make recommendation from renal standpoint Subjective Principal diagnosis: thoracic cord infarction Interval history: seen today for follow-up currently sitting in a wheelchair patient states that she is doing well no acute distress she is also tolerating dialysis well events of 24 hours vitals labs intake output medication were reviewed Objective - Vital Signs Vital signs: Vital Signs - 12hr 10/15/16 10/15/16 08:00 09:03 Temperature 97.6 F Pulse Rate 85 Pulse Rate [ 85 Left Brachial] Respiratory 20 Rate Blood Pressure 189/95 Blood Pressure 189/95 [Right Arm] O2 Sat by Pulse 100 Oximetry - Lab 10/14/16 15:18 10/14/16 20:30 Most recent lab results Calcium 8.8 mg/dL (8.4-10.2) 10/14/16 20:30
--- NOTE | 2016-10-15 15:20 | Progress Note ---
Assessment and Plan 36 y.o. female s/p intractable status epilepticus on presentation; s/p acute respiratory failure requiring intubation, acute metabolic encephalopathy, GN bacteremia, +E.Faecalis in urine, hypokalemia, left arm cellulitis. Pt later noted to have acute CVA at anterior corpus callosum and left parietal periventricular white matter, subacute bilateral parietal lobe infarcts, and acute onset of BLE numbness and paralysis thought to be secondary to thoracic cord infarction from hypotension; also with mobile vegetation on permacath wire in right atrium; permacath replaced/resolved on 09/29 - thoracic cord infarction- bowel/bladder management; last BM on 10/13 - continue daily wound care - acute CVA at anterior corpus callosum and left parietal periventricular white matter; subacute bilateral parietal lobe infarcts- ASA, statin - seizure disorder- keppra; seizure precautions; no seizures since admission - HTN- continues to fluctuate; continue to follow - DM- slowly improving; no longer in the 300s; IM managing - ESRD- on HD, MWF; Nephrology following - DVT px- heparin - labs reviewed- H/H stable; WBC much improved; no temp since 10/10 - Patient Problems (1) Spinal cord infarction Current Visit: No Status: Acute (2) CVA (cerebral vascular accident) Current Visit: Yes Status: Acute Qualifiers: CVA mechanism: other Precerebral and cerebral artery: P Laterality of affected vessel: L Qualified Code(s): I63.8 - Other cerebral infarction (3) Seizure Current Visit: No Status: Acute (4) Diabetes Current Visit: Yes Status: Chronic Qualifiers: Diabetes mellitus type: type 2 Diabetes mellitus complication status: with hyperglycemia Diabetes mellitus complication detail: D Diabetic retinopathy severity: D Proliferative retinopathy type: P Diabetes mellitus macular edema: D Diabetes mellitus meterman insulin use: with alf use Laterality: L Chronic kidney disease stage: C Qualified Code(s): E11.65 - Type 2 diabetes mellitus with hyperglycemia; Z79.4 - terminal system operator (current) use of insulin (5) HTN (hypertension) Current Visit: Yes Status: Acute Qualifiers: Hypertension type: essential hypertension Qualified Code(s): I10 - Essential (primary) hypertension (6) ESRD on hemodialysis Current Visit: Yes Status: Chronic (7) Anemia in ESRD (end-stage renal disease) Current Visit: Yes Status: Chronic Subjective Date of service: 10/15/16 Principal diagnosis: thoracic cord infarction Interval history: Pt seen this AM, F/U IPR course, s/p thoracic cord infarction and acute CVAs. No new complaints on this AM; Parents visiting Objective - Constitutional Vitals: Vital Signs - 12hr 10/15/16 10/15/16 08:00 09:03 Temperature 97.6 F Pulse Rate 85 Pulse Rate [ 85 Left Brachial] Respiratory 20 Rate Blood Pressure 189/95 Blood Pressure 189/95 [Right Arm] O2 Sat by Pulse 100 Oximetry General appearance: Present: no acute distress, other (pt observed completing wheelchair mobility towards room; requires cues to prevent running into the wall , but able to self correct at times) - EENT Eyes: EOM intact ENT: hearing intact - Neck Neck: supple, normal ROM - Respiratory Respiratory effort: normal Extremities: No edema - Neurologic Neurologic: CNII-XII intact - Psychiatric Psychiatric: appropriate mood/affect, cooperative - Allied health notes Allied health notes reviewed: PT (mod-dependent for sitting balance; dependent for sliding board transfers), OT (remains min-totalA for self cares; s/u for eating) - Labs CBC & Chem 7: 10/14/16 15:18 10/14/16 20:30 Labs: Abnormal lab results 10/14/16 10/14/16 10/14/16 Range/Units 15:18 17:53 20:30 WBC 13.3 H (4.5-11.0) K/mm3 RBC 3.47 L (3.65-5.03) M/mm3 Hgb 9.2 L (10.1-14.3) gm/dl Hct 30.1 L (30.3-42.9) % MCH 27 L (28-32) pg RDW 17.0 H (13.2-15.2) % Monocytes % (Manual) 8.0 H (0.0-7.3) % Eosinophils % (Manual) 13.0 H (0.0-4.3) % Nucleated RBC % 2.0 H (0.0-0.9) % Seg Neutrophils # Man 8.0 H (1.8-7.7) K/mm3 Monocytes # (Manual) 1.1 H (0.0-0.8) K/mm3 Eosinophils # (Manual) 1.7 H (0.0-0.4) K/mm3 Sodium 136 L (137-145) mmol/L Potassium 3.3 L (3.6-5.0) mmol/L Chloride 95.7 L (98-107) mmol/L Creatinine 3.2 H D (0.7-1.2) mg/dL Glucose 197 H (65-100) mg/dL POC Glucose 196 H (70-105) 10/14/16 10/15/16 10/15/16 Range/Units 21:21 06:28 11:41 WBC (4.5-11.0) K/mm3 RBC (3.65-5.03) M/mm3 Hgb (10.1-14.3) gm/dl Hct (30.3-42.9) % MCH (28-32) pg RDW (13.2-15.2) % Monocytes % (Manual) (0.0-7.3) % Eosinophils % (Manual) (0.0-4.3) % Nucleated RBC % (0.0-0.9) % Seg Neutrophils # Man (1.8-7.7) K/mm3 Monocytes # (Manual) (0.0-0.8) K/mm3 Eosinophils # (Manual) (0.0-0.4) K/mm3 Sodium (137-145) mmol/L Potassium (3.6-5.0) mmol/L Chloride (98-107) mmol/L Creatinine (0.7-1.2) mg/dL Glucose (65-100) mg/dL POC Glucose 217 H 204 H 213 H (70-105)
[2016-10-15] MEDS ORDERED: PROCARDIA XL PO SCH (15:25)
[2016-10-15] MEDS: SENOKOT PO SCH (21:45)
[2016-10-15] MEDS: ZOCOR PO SCH (21:46)
[2016-10-15] MEDS: TRANSDERM-SCOP TD SCH (21:47)
[2016-10-16] MEDS: NOVOLOG SUB-Q SCH ×7 (07:30→22:43)
[2016-10-16] MEDS: PROCARDIA XL PO SCH ×2 (07:57→22:16)
[2016-10-16] MEDS: ZESTRIL PO SCH (07:58)
[2016-10-16] MEDS: ALDACTONE PO SCH (07:59)
--- NOTE | 2016-10-16 08:30 | Progress Note ---
Assessment and Plan Assessment and plan: 36-year-old woman status post thoracic cord infarction and acute CVA who is now paraplegic in acute rehabilitation for aggressive rehabilitation. Medicine consulted for management of hypotension and presumed sepsis. 1. Severe sepsis, septic shock with hypotension -BP improved with IVF resuscitation and prbc Continue sepsis pathway, she does have Gardnerella vaginalis UTI, completed metronidazole 7 days on 10/14 chest x-ray was negative for pneumonia on 10/07, reviewed blood cultures from 10/06 and 10/07, NGTD Also notes there was a vegetation seen on permacath which was exchanged on however blood cultures from that time were negative Blood cx were negative only identified source is the UTI, completed 7 day course of flagyl as above, all other abx DC per Dr Ogden continue to follow up abx 2. Accelerated HTN optimize oral meds (Will not give clonidine again, as she is at risk for hypotension and rebound htn) BP better controlled today, continue current meds 3. DM type 2- insulin dependent better controlled today, continue basal, bolus and SSI 4. ESRD, CKD stage 5 on HD - continue HD 5. Anemia of Chronic disease -Status post transfusion with appropriate rise in hemoglobin 6. Hypotension Most likely due to sepsis and polypharmacy, now resolved 7. Depression most likely situation, improving History Interval history: She states that she feels much better today, denies cough, shortness of breath has now resolved. Denies fever, she feels that she is improving. Hospitalist Physical - Physical exam Narrative exam: General: appears well HEENT: MMM, EOMI cardiac: S1-S2 heard lungs: clear to auscultation, abdomen: soft, nontender, nondistended bowel sounds positive extremities: no edema clubbing or cyanosis Skin: no rash or lesion Neuro: Paraplegic Psych: appropriate mood, cognition intact - Constitutional Vitals: Temp Pulse Resp BP Pulse Ox 97.9 F 80 20 119/70 100 10/16/16 07:51 10/16/16 07:51 10/16/16 07:51 10/15/16 20:00 10/15/16 22:00 General appearance: Present: no acute distress, obese Results - Labs CBC & Chem 7: 10/14/16 15:18 10/14/16 20:30 Labs: Laboratory Last Values WBC 13.3 K/mm3 (4.5-11.0) H 10/14/16 15:18 RBC 3.47 M/mm3 (3.65-5.03) L 10/14/16 15:18 Hgb 9.2 gm/dl (10.1-14.3) L 10/14/16 15:18 Hct 30.1 % (30.3-42.9) L 10/14/16 15:18 MCV 87 fl (79-97) 10/14/16 15:18 MCH 27 pg (28-32) L 10/14/16 15:18 MCHC 31 % (30-34) 10/14/16 15:18 RDW 17.0 % (13.2-15.2) H 10/14/16 15:18 Plt Count 246 K/mm3 (140-440) 10/14/16 15:18 Lymph % (Auto) 5.6 % (13.4-35.0) L 10/03/16 08:44 Lamb % (Auto) 7.9 % (0.0-7.3) H 10/03/16 08:44 Eos % (Auto) 4.6 % (0.0-4.3) H 10/03/16 08:44 Baso % (Auto) 1.4 % (0.0-1.8) 10/03/16 08:44 Lymph # 0.6 K/mm3 (1.2-5.4) L 10/03/16 08:44 Lamb # 0.9 K/mm3 (0.0-0.8) H 10/03/16 08:44 Eos # 0.5 K/mm3 (0.0-0.4) H 10/03/16 08:44 Baso # 0.2 K/mm3 (0.0-0.1) H 10/03/16 08:44 Add Manual Diff Complete 10/14/16 15:18 Total Counted 100 10/14/16 15:18 Seg Neutrophils % 80.5 % (40.0-70.0) H 10/03/16 08:44 Seg Neuts % (Manual) 60.0 % (40.0-70.0) 10/14/16 15:18 Band Neutrophils % 1.0 % 10/14/16 15:18 Lymphocytes % (Manual) 16.0 % (13.4-35.0) 10/14/16 15:18 Reactive Lymphs % (Man) 0 % 10/14/16 15:18 Monocytes % (Manual) 8.0 % (0.0-7.3) H 10/14/16 15:18 Eosinophils % (Manual) 13.0 % (0.0-4.3) H 10/14/16 15:18 Basophils % (Manual) 0 % (0.0-1.8) 10/14/16 15:18 Metamyelocytes % 1.0 % 10/14/16 15:18 Myelocytes % 1.0 % 10/14/16 15:18 Promyelocytes % 0 % 10/14/16 15:18 Blast Cells % 0 % 10/14/16 15:18 Nucleated RBC % 2.0 % (0.0-0.9) H 10/14/16 15:18 Seg Neutrophils # 9.0 K/mm3 (1.8-7.7) H 10/03/16 08:44 Seg Neutrophils # Man 8.0 K/mm3 (1.8-7.7) H 10/14/16 15:18 Band Neutrophils # 0.1 K/mm3 10/14/16 15:18 Lymphocytes # (Manual) 2.1 K/mm3 (1.2-5.4) 10/14/16 15:18 Abs React Lymphs (Man) 0.0 K/mm3 10/14/16 15:18 Monocytes # (Manual) 1.1 K/mm3 (0.0-0.8) H 10/14/16 15:18 Eosinophils # (Manual) 1.7 K/mm3 (0.0-0.4) H 10/14/16 15:18 Basophils # (Manual) 0.0 K/mm3 (0.0-0.1) 10/14/16 15:18 Metamyelocytes # 0.1 K/mm3 10/14/16 15:18 Myelocytes # 0.1 K/mm3 10/14/16 15:18 Promyelocytes # 0.0 K/mm3 10/14/16 15:18 Blast Cells # 0.0 K/mm3 10/14/16 15:18 WBC Morphology Not Reportable 10/14/16 15:18 Hypersegmented Neuts Not Reportable 10/14/16 15:18 Hyposegmented Neuts Not Reportable 10/14/16 15:18 Hypogranular Neuts Not Reportable 10/14/16 15:18 Smudge Cells Not Reportable 10/14/16 15:18 Toxic Granulation Not Reportable 10/14/16 15:18 Toxic Vacuolation Not Reportable 10/14/16 15:18 Dohle Bodies Not Reportable 10/14/16 15:18 Pelger-Huet Anomaly Not Reportable 10/14/16 15:18 Tiffanie Rods Not Reportable 10/14/16 15:18 Platelet Estimate Consistent w auto 10/14/16 15:18 Clumped Platelets Not Reportable 10/14/16 15:18 Plt Clumps, EDTA Not Reportable 10/14/16 15:18 Large Platelets 1+ 10/14/16 15:18 Giant Platelets Not Reportable 10/14/16 15:18 Platelet Satelliting Not Reportable 10/14/16 15:18 Plt Morphology Comment Not Reportable 10/14/16 15:18 RBC Morphology Not Reportable 10/14/16 15:18 Dimorphic RBCs Not Reportable 10/14/16 15:18 Polychromasia Not Reportable 10/14/16 15:18 Hypochromasia Not Reportable 10/14/16 15:18 Poikilocytosis 1+ 10/14/16 15:18 Anisocytosis 1+ 10/14/16 15:18 Microcytosis Not Reportable 10/14/16 15:18 Macrocytosis Not Reportable 10/14/16 15:18 Spherocytes Not Reportable 10/14/16 15:18 Pappenheimer Bodies Not Reportable 10/14/16 15:18 Sickle Cells Not Reportable 10/14/16 15:18 Target Cells Not Reportable 10/14/16 15:18 Tear Drop Cells Not Reportable 10/14/16 15:18 Ovalocytes Not Reportable 10/14/16 15:18 Helmet Cells Not Reportable 10/14/16 15:18 L[place] Bodies Not Reportable 10/14/16 15:18 [place] Rings Not Reportable 10/14/16 15:18 Damon Cells Not Reportable 10/14/16 15:18 Bite Cells Not Reportable 10/14/16 15:18 Crenated Cell Not Reportable 10/14/16 15:18 Elliptocytes Not Reportable 10/14/16 15:18 Acanthocytes (Spur) Not Reportable 10/14/16 15:18 Rouleaux Not Reportable 10/14/16 15:18 Hemoglobin C Crystals Not Reportable 10/14/16 15:18 Schistocytes Not Reportable 10/14/16 15:18 Malaria parasites Not Reportable 10/14/16 15:18 Nagel Bodies Not Reportable 10/14/16 15:18 Hem Pathologist Commnt No 10/14/16 15:18 Sodium 136 mmol/L (137-145) L 10/14/16 20:30 Potassium 3.3 mmol/L (3.6-5.0) L 10/14/16 20:30 Chloride 95.7 mmol/L (98-107) L 10/14/16 20:30 Carbon Dioxide 27 mmol/L (22-30) 10/14/16 20:30 Anion Gap 17 mmol/L 10/14/16 20:30 BUN 14 mg/dL (7-17) 10/14/16 20:30 Creatinine 3.2 mg/dL (0.7-1.2) H D 10/14/16 20:30 Estimated GFR 20 ml/min 10/14/16 20:30 BUN/Creatinine Ratio 4.37 % 10/14/16 20:30 Glucose 197 mg/dL (65-100) H 10/14/16 20:30 POC Glucose 147 (70-105) H 10/16/16 06:26 Calcium 8.8 mg/dL (8.4-10.2) 10/14/16 20:30 Total Bilirubin < 0.20 mg/dL (0.1-1.2) 10/01/16 05:15 AST 12 units/L (5-40) 10/01/16 05:15 ALT < 5 units/L (7-56) L 10/01/16 05:15 Alkaline Phosphatase 110 units/L (35-129) 10/01/16 05:15 Total Protein 6.8 g/dL (6.3-8.2) 10/01/16 05:15 Albumin 2.6 g/dL (3.9-5) L 10/01/16 05:15 Albumin/Globulin Ratio 0.6 % 10/01/16 05:15 Urine Color Yellow (Yellow) 10/02/16 11:31 Urine Turbidity Turbid (Clear) 10/02/16 11:31 Urine pH 6.0 (5.0-7.0) 10/02/16 11:31 Ur Specific [place] 1.018 (1.003-1.030) 10/02/16 11:31 Urine Protein 100 mg/dl mg/dL (Negative) 10/02/16 11:31 Urine Glucose (UA) Neg mg/dL (Negative) 10/02/16 11:31 Urine Ketones Neg mg/dL (Negative) 10/02/16 11:31 Urine Blood Mod (Negative) 10/02/16 11:31 Urine Nitrite Neg (Negative) 10/02/16 11:31 Urine Bilirubin Neg (Negative) 10/02/16 11:31 Urine Urobilinogen < 2.0 mg/dL (<2.0) 10/02/16 11:31 Ur Leukocyte Esterase Lg (Negative) 10/02/16 11:31 Urine WBC (Auto) > 182.0 /HPF (0.0-6.0) H 10/02/16 11:31 Urine RBC (Auto) 68.0 /HPF (0.0-6.0) 10/02/16 11:31 U Epithel Cells (Auto) 3.0 /HPF (0-13.0) 10/02/16 11:31 Urine Bacteria (Auto) 3+ /HPF (Negative) 10/02/16 11:31 Blood Type O POSITIVE 10/07/16 14:20 Antibody Screen TNR 10/07/16 14:20 SHAHEED Antibody Screen Negative 10/07/16 14:20 Crossmatch See Detail 10/07/16 14:20
[2016-10-16] MEDS: ASPIRIN PO SCH (09:44)
[2016-10-16] MEDS: KEPPRA PO SCH ×2 (09:44→22:16)
[2016-10-16] MEDS: ULTRAM PO PRN ×2 (09:45→19:02)
[2016-10-16] MEDS: LEVEMIR SUB-Q SCH ×2 (09:46→17:00)
[2016-10-16] MEDS: HEPARIN SUB-Q SCH ×2 (09:47→22:17)
[2016-10-16] MEDS: PEPCID PO SCH (09:47)
[2016-10-16] MEDS: NYSTOP TP SCH ×2 (12:44→22:42)
[2016-10-16] MEDS: THERMAZENE 50 GRAM TP SCH ×2 (12:44→22:41)
--- NOTE | 2016-10-16 14:06 | Progress Note ---
Assessment and Plan 36 y.o. female s/p intractable status epilepticus on presentation; s/p acute respiratory failure requiring intubation, acute metabolic encephalopathy, GN bacteremia, +E.Faecalis in urine, hypokalemia, left arm cellulitis. Pt later noted to have acute CVA at anterior corpus callosum and left parietal periventricular white matter, subacute bilateral parietal lobe infarcts, and acute onset of BLE numbness and paralysis thought to be secondary to thoracic cord infarction from hypotension; also with mobile vegetation on permacath wire in right atrium; permacath replaced/resolved on 09/29 - thoracic cord infarction- bowel/bladder management; last BM on this AM; less than 60 cc on bladder scan this AM - continue daily wound care - acute CVA at anterior corpus callosum and left parietal periventricular white matter; subacute bilateral parietal lobe infarcts- ASA, statin - seizure disorder- keppra; seizure precautions; no seizures since admission - HTN- stable overnight and this AM - DM- 133-262 over last 24 hours; IM managing - ESRD- on HD, MWF; Nephrology following - DVT px- heparin - recheck labs on Wednesday, 10/19 - Patient Problems (1) Spinal cord infarction Current Visit: No Status: Acute (2) CVA (cerebral vascular accident) Current Visit: Yes Status: Acute Qualifiers: CVA mechanism: other Precerebral and cerebral artery: P Laterality of affected vessel: L Qualified Code(s): I63.8 - Other cerebral infarction (3) Seizure Current Visit: No Status: Acute (4) Diabetes Current Visit: Yes Status: Chronic Qualifiers: Diabetes mellitus type: type 2 Diabetes mellitus complication status: with hyperglycemia Diabetes mellitus complication detail: D Diabetic retinopathy severity: D Proliferative retinopathy type: P Diabetes mellitus macular edema: D Diabetes mellitus terminal supervisor insulin use: with detention use Laterality: L Chronic kidney disease stage: C Qualified Code(s): E11.65 - Type 2 diabetes mellitus with hyperglycemia; Z79.4 - intermodal truck driver (current) use of insulin (5) HTN (hypertension) Current Visit: Yes Status: Acute Qualifiers: Hypertension type: essential hypertension Qualified Code(s): I10 - Essential (primary) hypertension (6) ESRD on hemodialysis Current Visit: Yes Status: Chronic Subjective Date of service: 10/16/16 Principal diagnosis: thoracic cord infarction Interval history: Pt seen this AM in OT gym, F/U IPR course, s/p thoracic cord infarction and acute CVAs. Complained of mild back pain this AM Objective - Constitutional Vitals: Vital Signs - 12hr 10/16/16 10/16/16 07:51 10:00 Temperature 97.9 F Pulse Rate [ 80 Left Brachial] Pulse Rate [ 80 Right Radial] Respiratory 20 Rate O2 Sat by Pulse 98 Oximetry General appearance: Present: no acute distress, obese - EENT Eyes: EOM intact ENT: hearing intact - Neck Neck: supple, normal ROM - Respiratory Respiratory effort: normal Respiratory: bilateral: CTA - Cardiovascular Rhythm: regular Heart Sounds: Present: S1 & S2 Extremities: No edema Extremity abnormal: other (no pain with PROM; no tone or spasticity noted) - Gastrointestinal General gastrointestinal: Present: soft, non-tender, normal bowel sounds - Neurologic Neurologic: CNII-XII intact - Psychiatric Psychiatric: cooperative - Allied health notes Allied health notes reviewed: nursing (supervision for grooming; otherwise, maxA -totalA for ADL with nursing this AM) - Labs CBC & Chem 7: 10/14/16 15:18 10/14/16 20:30 Labs: Abnormal lab results 10/15/16 10/15/16 10/16/16 Range/Units 16:20 21:23 06:26 POC Glucose 142 H 133 H 147 H (70-105) 10/16/16 Range/Units 11:36 POC Glucose 262 H (70-105)
--- NOTE | 2016-10-16 14:39 | Progress Note ---
Assessment and Plan Assessment: * End stage renal disease * Status post hyperglycemic hyperosmolar nonketotic coma * Status post hypoxemic respiratory failure * Catheter associated bacteremia --Blood cx 09/05: coag negative staph * Permcath w/ mobile vegetation --PermCath was exchanged on 09/29/2016 * Thoracic spinal cord infarction * Seizure * Anemia secondary to ESRD --Heme occult negative * Hx of enterococcal UTI (cx 09/08) Plan: * Continue MWF schedule - UF as tolerated * Continue anti HTN medications * Dose medications for renal function * Epogen with dialysis Subjective Date of service: 10/16/16 Principal diagnosis: thoracic cord infarction Interval history: Patient seen without complaint Objective - Vital Signs Vital signs: Vital Signs - 12hr 10/16/16 10/16/16 07:51 10:00 Temperature 97.9 F Pulse Rate [ 80 Left Brachial] Pulse Rate [ 80 Right Radial] Respiratory 20 Rate O2 Sat by Pulse 98 Oximetry - General Appearance General appearance: well-developed, well-nourished EENT: ATNC Neck: no JVD Respiratory: Present: Clear to Ascultation Cardiology: regular, S1S2 Gastrointestinal: normal, no tenderness, no distended Integumentary: no rash Neurologic: alert and oriented x3 Psychiatric: mood/affect appropriate, cooperative - Lab 10/14/16 15:18 10/14/16 20:30 Most recent lab results Calcium 8.8 mg/dL (8.4-10.2) 10/14/16 20:30
[2016-10-16] MEDS ORDERED: NACL 0.9 (PRIMING MACHINE ONLY DIALYSIS) MC ONE (16:59)
[2016-10-16] MEDS: HEPARIN IV PRN (18:41)
[2016-10-16 21:06] LABS: BUN/Creatinine Ratio 4.07; Chloride 96.6 mmol/L (98-107); Potassium 3.9 mmol/L (3.6-5.0)
[2016-10-16] MEDS: ZOCOR PO SCH (22:16)
[2016-10-16] MEDS: SENOKOT PO SCH (22:16)
[2016-10-17] MEDS: NOVOLOG SUB-Q SCH ×8 (07:30→22:32)
--- NOTE | 2016-10-17 08:51 | Progress Note ---
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 Medicine consulted for management of hypotension and presumed sepsis. Severe sepsis with hypotension, septic shock: BP improved with IVF resuscitation and prbc. Most recent blood pressure is 121/63 Continue sepsis pathway, she does have Gardnerella vaginalis UTI, completed metronidazole 7 days on 10/14 chest x-ray was negative for pneumonia on 10/07, reviewed blood cultures from 10/06 and 10/07, NGTD Also notes there was a vegetation seen on permacath which was exchanged on however blood cultures from that time were negative Blood cx were negative only identified source is the UTI, completed 7 day course of flagyl, all other abx DC per Dr Ogden, ID Physician. Hypotension due to sepsis, now resolved Accelerated HTN. Will adjust oral meds to control BP (Will not give clonidine again, as she is at risk for hypotension and rebound htn). BP now stable, 121/ 63. DM type 2- insulin dependent. This is improving. Continue basal, bolus and SSI ESRD, on hemodialysis. Nephrology managing. Anemia of Chronic disease. status post PRBC transfusion. Most recent hemoglobin 9.2. Depression, improving DVT prophylaxis with Heparin subcut Full code status History Interval history: Still bilateral lower ext weakness, no vomiting no chest pain Hospitalist Physical - Physical exam Narrative exam: Appearance: Not in acute distress, obese HEENT: normocephalic, atraumatic Neck : supple, no JVD Lungs: Clear to auscultation bilaterally, no crackles or wheeze Heart : S1 and S2 regular, no murmurs, rubs or gallop Abdomen: soft, nontender, nondistended, normal bowel sounds Extremities: No edema, no clubbing or cyanosis Neuro: Awake alert oriented 3, flaccid paralysis both lower ext, loss of sensation both lower ext Psych: Depressed - Constitutional Vitals: Temp Pulse Resp BP Pulse Ox 97.9 F 81 16 121/63 96 10/17/16 07:34 10/16/16 22:00 10/17/16 07:34 10/17/16 07:34 10/17/16 07:34 General appearance: Present: no acute distress, obese Results - Labs CBC & Chem 7: 10/14/16 15:18 10/16/16 20:26 Labs: Laboratory Last Values WBC 13.3 K/mm3 (4.5-11.0) H 10/14/16 15:18 RBC 3.47 M/mm3 (3.65-5.03) L 10/14/16 15:18 Hgb 9.2 gm/dl (10.1-14.3) L 10/14/16 15:18 Hct 30.1 % (30.3-42.9) L 10/14/16 15:18 MCV 87 fl (79-97) 10/14/16 15:18 MCH 27 pg (28-32) L 10/14/16 15:18 MCHC 31 % (30-34) 10/14/16 15:18 RDW 17.0 % (13.2-15.2) H 10/14/16 15:18 Plt Count 246 K/mm3 (140-440) 10/14/16 15:18 Lymph % (Auto) 5.6 % (13.4-35.0) L 10/03/16 08:44 [place] % (Auto) 7.9 % (0.0-7.3) H 10/03/16 08:44 Eos % (Auto) 4.6 % (0.0-4.3) H 10/03/16 08:44 Baso % (Auto) 1.4 % (0.0-1.8) 10/03/16 08:44 Lymph # 0.6 K/mm3 (1.2-5.4) L 10/03/16 08:44 [place] # 0.9 K/mm3 (0.0-0.8) H 10/03/16 08:44 Eos # 0.5 K/mm3 (0.0-0.4) H 10/03/16 08:44 Baso # 0.2 K/mm3 (0.0-0.1) H 10/03/16 08:44 Add Manual Diff Complete 10/14/16 15:18 Total Counted 100 10/14/16 15:18 Seg Neutrophils % 80.5 % (40.0-70.0) H 10/03/16 08:44 Seg Neuts % (Manual) 60.0 % (40.0-70.0) 10/14/16 15:18 Band Neutrophils % 1.0 % 10/14/16 15:18 Lymphocytes % (Manual) 16.0 % (13.4-35.0) 10/14/16 15:18 Reactive Lymphs % (Man) 0 % 10/14/16 15:18 Monocytes % (Manual) 8.0 % (0.0-7.3) H 10/14/16 15:18 Eosinophils % (Manual) 13.0 % (0.0-4.3) H 10/14/16 15:18 Basophils % (Manual) 0 % (0.0-1.8) 10/14/16 15:18 Metamyelocytes % 1.0 % 10/14/16 15:18 Myelocytes % 1.0 % 10/14/16 15:18 Promyelocytes % 0 % 10/14/16 15:18 Blast Cells % 0 % 10/14/16 15:18 Nucleated RBC % 2.0 % (0.0-0.9) H 10/14/16 15:18 Seg Neutrophils # 9.0 K/mm3 (1.8-7.7) H 10/03/16 08:44 Seg Neutrophils # Man 8.0 K/mm3 (1.8-7.7) H 10/14/16 15:18 Band Neutrophils # 0.1 K/mm3 10/14/16 15:18 Lymphocytes # (Manual) 2.1 K/mm3 (1.2-5.4) 10/14/16 15:18 Abs React Lymphs (Man) 0.0 K/mm3 10/14/16 15:18 Monocytes # (Manual) 1.1 K/mm3 (0.0-0.8) H 10/14/16 15:18 Eosinophils # (Manual) 1.7 K/mm3 (0.0-0.4) H 10/14/16 15:18 Basophils # (Manual) 0.0 K/mm3 (0.0-0.1) 10/14/16 15:18 Metamyelocytes # 0.1 K/mm3 10/14/16 15:18 Myelocytes # 0.1 K/mm3 10/14/16 15:18 Promyelocytes # 0.0 K/mm3 10/14/16 15:18 Blast Cells # 0.0 K/mm3 10/14/16 15:18 WBC Morphology Not Reportable 10/14/16 15:18 Hypersegmented Neuts Not Reportable 10/14/16 15:18 Hyposegmented Neuts Not Reportable 10/14/16 15:18 Hypogranular Neuts Not Reportable 10/14/16 15:18 Smudge Cells Not Reportable 10/14/16 15:18 Toxic Granulation Not Reportable 10/14/16 15:18 Toxic Vacuolation Not Reportable 10/14/16 15:18 Dohle Bodies Not Reportable 10/14/16 15:18 Pelger-Huet Anomaly Not Reportable 10/14/16 15:18 Tiffanie Rods Not Reportable 10/14/16 15:18 Platelet Estimate Consistent w auto 10/14/16 15:18 Clumped Platelets Not Reportable 10/14/16 15:18 Plt Clumps, EDTA Not Reportable 10/14/16 15:18 Large Platelets 1+ 10/14/16 15:18 Giant Platelets Not Reportable 10/14/16 15:18 Platelet Satelliting Not Reportable 10/14/16 15:18 Plt Morphology Comment Not Reportable 10/14/16 15:18 RBC Morphology Not Reportable 10/14/16 15:18 Dimorphic RBCs Not Reportable 10/14/16 15:18 Polychromasia Not Reportable 10/14/16 15:18 Hypochromasia Not Reportable 10/14/16 15:18 Poikilocytosis 1+ 10/14/16 15:18 Anisocytosis 1+ 10/14/16 15:18 Microcytosis Not Reportable 10/14/16 15:18 Macrocytosis Not Reportable 10/14/16 15:18 Spherocytes Not Reportable 10/14/16 15:18 Pappenheimer Bodies Not Reportable 10/14/16 15:18 Sickle Cells Not Reportable 10/14/16 15:18 Target Cells Not Reportable 10/14/16 15:18 Tear Drop Cells Not Reportable 10/14/16 15:18 Ovalocytes Not Reportable 10/14/16 15:18 Helmet Cells Not Reportable 10/14/16 15:18 Lutz-[place] Bodies Not Reportable 10/14/16 15:18 [place] Rings Not Reportable 10/14/16 15:18 Damon Cells Not Reportable 10/14/16 15:18 Bite Cells Not Reportable 10/14/16 15:18 Crenated Cell Not Reportable 10/14/16 15:18 Elliptocytes Not Reportable 10/14/16 15:18 Acanthocytes (Spur) Not Reportable 10/14/16 15:18 Rouleaux Not Reportable 10/14/16 15:18 Hemoglobin C Crystals Not Reportable 10/14/16 15:18 Schistocytes Not Reportable 10/14/16 15:18 Malaria parasites Not Reportable 10/14/16 15:18 Angel Bodies Not Reportable 10/14/16 15:18 Hem Pathologist Commnt No 10/14/16 15:18 Sodium 138 mmol/L (137-145) 10/16/16 20:26 Potassium 3.9 mmol/L (3.6-5.0) 10/16/16 20:26 Chloride 96.6 mmol/L (98-107) L 10/16/16 20:26 Carbon Dioxide 28 mmol/L (22-30) 10/16/16 20:26 Anion Gap 17 mmol/L 10/16/16 20:26 BUN 11 mg/dL (7-17) 10/16/16 20:26 Creatinine 2.7 mg/dL (0.7-1.2) H 10/16/16 20:26 Estimated GFR 24 ml/min 10/16/16 20:26 BUN/Creatinine Ratio 4.07 % 10/16/16 20:26 Glucose 204 mg/dL (65-100) H 10/16/16 20:26 POC Glucose 244 (70-105) H 10/17/16 06:44 Calcium 9.0 mg/dL (8.4-10.2) 10/16/16 20:26 Total Bilirubin < 0.20 mg/dL (0.1-1.2) 10/01/16 05:15 AST 12 units/L (5-40) 10/01/16 05:15 ALT < 5 units/L (7-56) L 10/01/16 05:15 Alkaline Phosphatase 110 units/L (35-129) 10/01/16 05:15 Total Protein 6.8 g/dL (6.3-8.2) 10/01/16 05:15 Albumin 2.6 g/dL (3.9-5) L 10/01/16 05:15 Albumin/Globulin Ratio 0.6 % 10/01/16 05:15 Urine Color Yellow (Yellow) 10/02/16 11:31 Urine Turbidity Turbid (Clear) 10/02/16 11:31 Urine pH 6.0 (5.0-7.0) 10/02/16 11:31 Ur Specific [place] 1.018 (1.003-1.030) 10/02/16 11:31 Urine Protein 100 mg/dl mg/dL (Negative) 10/02/16 11:31 Urine Glucose (UA) Neg mg/dL (Negative) 10/02/16 11:31 Urine Ketones Neg mg/dL (Negative) 10/02/16 11:31 Urine Blood Mod (Negative) 10/02/16 11:31 Urine Nitrite Neg (Negative) 10/02/16 11:31 Urine Bilirubin Neg (Negative) 10/02/16 11:31 Urine Urobilinogen < 2.0 mg/dL (<2.0) 10/02/16 11:31 Ur Leukocyte Esterase Lg (Negative) 10/02/16 11:31 Urine WBC (Auto) > 182.0 /HPF (0.0-6.0) H 10/02/16 11:31 Urine RBC (Auto) 68.0 /HPF (0.0-6.0) 10/02/16 11:31 U Epithel Cells (Auto) 3.0 /HPF (0-13.0) 10/02/16 11:31 Urine Bacteria (Auto) 3+ /HPF (Negative) 10/02/16 11:31 Blood Type O POSITIVE 10/07/16 14:20 Antibody Screen TNR 10/07/16 14:20 SHAHEED Antibody Screen Negative 10/07/16 14:20 Crossmatch See Detail 10/07/16 14:20
[2016-10-17] MEDS: ASPIRIN PO SCH (08:52)
[2016-10-17] MEDS: PROCARDIA XL PO SCH (08:52)
[2016-10-17] MEDS: ALDACTONE PO SCH (08:52)
[2016-10-17] MEDS: KEPPRA PO SCH ×2 (08:54→22:18)
[2016-10-17] MEDS: ZESTRIL PO SCH (08:54)
[2016-10-17] MEDS: LEVEMIR SUB-Q SCH ×2 (08:55→17:56)
[2016-10-17] MEDS: PEPCID PO SCH (08:57)
[2016-10-17] MEDS: HEPARIN SUB-Q SCH ×2 (09:02→22:33)
[2016-10-17] MEDS: NYSTOP TP SCH ×2 (09:02→22:32)
[2016-10-17] MEDS: THERMAZENE 50 GRAM TP SCH ×2 (09:03→22:31)
[2016-10-17] MEDS ORDERED: ZOFRAN PO PRN (16:00)
--- NOTE | 2016-10-17 19:36 | Progress Note ---
Assessment and Plan Assessment: * End stage renal disease * Status post hyperglycemic hyperosmolar nonketotic coma * Status post hypoxemic respiratory failure * Catheter associated bacteremia --Blood cx 09/05: coag negative staph * Permcath w/ mobile vegetation --PermCath was exchanged on 09/29/2016 * Thoracic spinal cord infarction * Seizure * Anemia secondary to ESRD --Heme occult negative * Hx of enterococcal UTI (cx 09/08) Plan: * Continue MWF schedule - UF as tolerated * Note decline in BP - will decrease Nifedipine to daily * Dose medications for renal function * Epogen with dialysis * AM labs ordered Subjective Date of service: 10/17/16 Principal diagnosis: thoracic cord infarction Interval history: Patient denies SOB. Reports good appetite. Objective - Vital Signs Vital signs: Vital Signs - 12hr 10/17/16 10/17/16 10/17/16 07:34 08:52 10:00 Temperature 97.9 F Pulse Rate 88 Pulse Rate [ 80 Left Brachial] Pulse Rate [ Right Radial] Respiratory 16 Rate Blood Pressure 121/63 Blood Pressure 121/63 [Left Arm] Blood Pressure [Right Arm] O2 Sat by Pulse 96 96 Oximetry 10/17/16 10/17/16 10/17/16 15:45 15:55 16:00 Temperature 96.8 F L Pulse Rate Pulse Rate [ 76 Left Brachial] Pulse Rate [ 70 Right Radial] Respiratory 16 18 Rate Blood Pressure Blood Pressure 85/60 [Left Arm] Blood Pressure 83/50 80/50 82/53 [Right Arm] O2 Sat by Pulse 98 Oximetry 10/17/16 10/17/16 16:11 17:30 Temperature Pulse Rate Pulse Rate [ 74 Left Brachial] Pulse Rate [ 77 Right Radial] Respiratory 20 20 Rate Blood Pressure Blood Pressure [Left Arm] Blood Pressure 120/78 131/70 [Right Arm] O2 Sat by Pulse 100 Oximetry - General Appearance General appearance: well-developed, well-nourished EENT: ATNC Respiratory: Present: Clear to Ascultation Cardiology: regular, S1S2 Gastrointestinal: normal, no tenderness, no distended Integumentary: no rash Musculoskeletal: other (no edema) Psychiatric: mood/affect appropriate, cooperative - Lab 10/14/16 15:18 10/16/16 20:26 Most recent lab results Calcium 9.0 mg/dL (8.4-10.2) 10/16/16 20:26
[2016-10-17] MEDS: ZOCOR PO SCH (22:21)
[2016-10-17] MEDS: SENOKOT PO SCH (22:21)
[2016-10-18 06:41] LABS: Basophils % (Auto) 1.6 % (0.0-1.8); Eosinophils % (Auto) 7.1 % (0.0-4.3); Hematocrit 30.4 % (30.3-42.9); Hemoglobin 9.4 gm/dl (10.1-14.3); Mean Corpuscular HGB Conc 31 % (30-34); Mean Corpuscular Hemoglobin 27 pg (28-32); Mean Corpuscular Volume 88 fl (79-97); Platelet Count 314 K/mm3 (140-440); Red Blood Count 3.46 M/mm3 (3.65-5.03); Red Cell Distribution Width 17.7 % (13.2-15.2); White Blood Count 11.5 K/mm3 (4.5-11.0)
[2016-10-18 06:51] LABS: BUN/Creatinine Ratio 4.46; Potassium 4.2 mmol/L (3.6-5.0)
[2016-10-18] MEDS: NOVOLOG SUB-Q SCH ×7 (07:30→22:28)
[2016-10-18] MEDS: LEVEMIR SUB-Q SCH ×3 (08:09→17:43)
[2016-10-18] MEDS: PROCARDIA XL PO SCH (08:10)
[2016-10-18] MEDS: THERMAZENE 50 GRAM TP SCH ×2 (08:11→22:27)
[2016-10-18] MEDS: NYSTOP TP SCH ×2 (08:16→22:27)
[2016-10-18] MEDS: ASPIRIN PO SCH (08:27)
[2016-10-18] MEDS: PEPCID PO SCH (08:28)
[2016-10-18] MEDS: ALDACTONE PO SCH (08:28)
[2016-10-18] MEDS: KEPPRA PO SCH ×2 (08:28→22:25)
[2016-10-18] MEDS: ZESTRIL PO SCH (08:29)
--- NOTE | 2016-10-18 09:40 | Progress Note ---
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 Medicine consulted for management of hypotension and presumed sepsis. Severe sepsis with hypotension, septic shock: BP improved with IVF resuscitation and prbc. Most recent blood pressure is 110/60 Continue sepsis pathway, she does have Gardnerella vaginalis UTI, completed metronidazole 7 days on 10/14 chest x-ray was negative for pneumonia on 10/07, reviewed blood cultures from 10/06 and 10/07, NGTD Also notes there was a vegetation seen on permacath which was exchanged on however blood cultures from that time were negative Blood cx were negative only identified source is the UTI, completed 7 day course of flagyl, all other abx DC per Dr Ogden, ID Physician. Hypotension due to sepsis, now resolved. Most recent blood pressure 110/60. Yesterday had episode of hypotension now resolved Accelerated HTN. Will adjust oral meds to control BP (Will not give clonidine again, as she is at risk for hypotension and rebound htn). BP now stable, 121/ 63. DM type 2- insulin dependent. This is improving. Continue basal, bolus and SSI ESRD, on hemodialysis. Nephrology managing. Anemia of Chronic disease. status post PRBC transfusion. Hemoglobin 9.4 today. Depression, improving DVT prophylaxis with Heparin subcut Full code status History Interval history: Still bilateral lower ext weakness, no vomiting no chest pain Hospitalist Physical - Physical exam Narrative exam: Appearance: Not in acute distress, obese HEENT: normocephalic, atraumatic Neck : supple, no JVD Lungs: Clear to auscultation bilaterally, no crackles or wheeze Heart : S1 and S2 regular, no murmurs, rubs or gallop Abdomen: soft, nontender, nondistended, normal bowel sounds Extremities: No edema, no clubbing or cyanosis Neuro: Awake alert oriented 3, flaccid paralysis both lower ext, loss of sensation both lower ext Psych: Depressed - Constitutional Vitals: Temp Pulse Resp BP Pulse Ox 97.8 F 84 18 110/60 97 10/18/16 07:34 10/18/16 07:34 10/18/16 07:34 10/18/16 07:34 10/18/16 07:34 General appearance: Present: no acute distress, obese Results - Labs CBC & Chem 7: 10/18/16 06:09 10/18/16 06:09 Labs: Laboratory Last Values WBC 11.5 K/mm3 (4.5-11.0) H 10/18/16 06:09 RBC 3.46 M/mm3 (3.65-5.03) L 10/18/16 06:09 Hgb 9.4 gm/dl (10.1-14.3) L 10/18/16 06:09 Hct 30.4 % (30.3-42.9) 10/18/16 06:09 MCV 88 fl (79-97) 10/18/16 06:09 MCH 27 pg (28-32) L 10/18/16 06:09 MCHC 31 % (30-34) 10/18/16 06:09 RDW 17.7 % (13.2-15.2) H 10/18/16 06:09 Plt Count 314 K/mm3 (140-440) 10/18/16 06:09 Lymph % (Auto) 20.6 % (13.4-35.0) 10/18/16 06:09 [place] % (Auto) 9.0 % (0.0-7.3) H 10/18/16 06:09 Eos % (Auto) 7.1 % (0.0-4.3) H 10/18/16 06:09 Baso % (Auto) 1.6 % (0.0-1.8) 10/18/16 06:09 Lymph # 2.4 K/mm3 (1.2-5.4) 10/18/16 06:09 [place] # 1.0 K/mm3 (0.0-0.8) H 10/18/16 06:09 Eos # 0.8 K/mm3 (0.0-0.4) H 10/18/16 06:09 Baso # 0.2 K/mm3 (0.0-0.1) H 10/18/16 06:09 Add Manual Diff Complete 10/14/16 15:18 Total Counted 100 10/14/16 15:18 Seg Neutrophils % 61.7 % (40.0-70.0) 10/18/16 06:09 Seg Neuts % (Manual) 60.0 % (40.0-70.0) 10/14/16 15:18 Band Neutrophils % 1.0 % 10/14/16 15:18 Lymphocytes % (Manual) 16.0 % (13.4-35.0) 10/14/16 15:18 Reactive Lymphs % (Man) 0 % 10/14/16 15:18 Monocytes % (Manual) 8.0 % (0.0-7.3) H 10/14/16 15:18 Eosinophils % (Manual) 13.0 % (0.0-4.3) H 10/14/16 15:18 Basophils % (Manual) 0 % (0.0-1.8) 10/14/16 15:18 Metamyelocytes % 1.0 % 10/14/16 15:18 Myelocytes % 1.0 % 10/14/16 15:18 Promyelocytes % 0 % 10/14/16 15:18 Blast Cells % 0 % 10/14/16 15:18 Nucleated RBC % 2.0 % (0.0-0.9) H 10/14/16 15:18 Seg Neutrophils # 7.1 K/mm3 (1.8-7.7) 10/18/16 06:09 Seg Neutrophils # Man 8.0 K/mm3 (1.8-7.7) H 10/14/16 15:18 Band Neutrophils # 0.1 K/mm3 10/14/16 15:18 Lymphocytes # (Manual) 2.1 K/mm3 (1.2-5.4) 10/14/16 15:18 Abs React Lymphs (Man) 0.0 K/mm3 10/14/16 15:18 Monocytes # (Manual) 1.1 K/mm3 (0.0-0.8) H 10/14/16 15:18 Eosinophils # (Manual) 1.7 K/mm3 (0.0-0.4) H 10/14/16 15:18 Basophils # (Manual) 0.0 K/mm3 (0.0-0.1) 10/14/16 15:18 Metamyelocytes # 0.1 K/mm3 10/14/16 15:18 Myelocytes # 0.1 K/mm3 10/14/16 15:18 Promyelocytes # 0.0 K/mm3 10/14/16 15:18 Blast Cells # 0.0 K/mm3 10/14/16 15:18 WBC Morphology Not Reportable 10/14/16 15:18 Hypersegmented Neuts Not Reportable 10/14/16 15:18 Hyposegmented Neuts Not Reportable 10/14/16 15:18 Hypogranular Neuts Not Reportable 10/14/16 15:18 Smudge Cells Not Reportable 10/14/16 15:18 Toxic Granulation Not Reportable 10/14/16 15:18 Toxic Vacuolation Not Reportable 10/14/16 15:18 Dohle Bodies Not Reportable 10/14/16 15:18 Pelger-Huet Anomaly Not Reportable 10/14/16 15:18 Tiffanie Rods Not Reportable 10/14/16 15:18 Platelet Estimate Consistent w auto 10/14/16 15:18 Clumped Platelets Not Reportable 10/14/16 15:18 Plt Clumps, EDTA Not Reportable 10/14/16 15:18 Large Platelets 1+ 10/14/16 15:18 Giant Platelets Not Reportable 10/14/16 15:18 Platelet Satelliting Not Reportable 10/14/16 15:18 Plt Morphology Comment Not Reportable 10/14/16 15:18 RBC Morphology Not Reportable 10/14/16 15:18 Dimorphic RBCs Not Reportable 10/14/16 15:18 Polychromasia Not Reportable 10/14/16 15:18 Hypochromasia Not Reportable 10/14/16 15:18 Poikilocytosis 1+ 10/14/16 15:18 Anisocytosis 1+ 10/14/16 15:18 Microcytosis Not Reportable 10/14/16 15:18 Macrocytosis Not Reportable 10/14/16 15:18 Spherocytes Not Reportable 10/14/16 15:18 Pappenheimer Bodies Not Reportable 10/14/16 15:18 Sickle Cells Not Reportable 10/14/16 15:18 Target Cells Not Reportable 10/14/16 15:18 Tear Drop Cells Not Reportable 10/14/16 15:18 Ovalocytes Not Reportable 10/14/16 15:18 Helmet Cells Not Reportable 10/14/16 15:18 Lutz-[place] Bodies Not Reportable 10/14/16 15:18 [place] Rings Not Reportable 10/14/16 15:18 Damon Cells Not Reportable 05/17/17 15:18 Bite Cells Not Reportable 10/14/16 15:18 Crenated Cell Not Reportable 10/14/16 15:18 Elliptocytes Not Reportable 10/14/16 15:18 Acanthocytes (Spur) Not Reportable 10/14/16 15:18 Rouleaux Not Reportable 10/14/16 15:18 Hemoglobin C Crystals Not Reportable 10/14/16 15:18 Schistocytes Not Reportable 10/14/16 15:18 Malaria parasites Not Reportable 10/14/16 15:18 Angel Bodies Not Reportable 10/14/16 15:18 Hem Pathologist Commnt No 10/14/16 15:18 Sodium 140 mmol/L (137-145) 10/18/16 06:09 Potassium 4.2 mmol/L (3.6-5.0) 10/18/16 06:09 Chloride 98.0 mmol/L (98-107) 10/18/16 06:09 Carbon Dioxide 26 mmol/L (22-30) 10/18/16 06:09 Anion Gap 20 mmol/L 10/18/16 06:09 BUN 25 mg/dL (7-17) H 10/18/16 06:09 Creatinine 5.6 mg/dL (0.7-1.2) H D 10/18/16 06:09 Estimated GFR 10 ml/min 10/18/16 06:09 BUN/Creatinine Ratio 4.46 % 10/18/16 06:09 Glucose 126 mg/dL (65-100) H 10/18/16 06:09 POC Glucose 145 (70-105) H 10/18/16 06:03 Calcium 9.0 mg/dL (8.4-10.2) 10/18/16 06:09 Total Bilirubin < 0.20 mg/dL (0.1-1.2) 10/01/16 05:15 AST 12 units/L (5-40) 10/01/16 05:15 ALT < 5 units/L (7-56) L 10/01/16 05:15 Alkaline Phosphatase 110 units/L (35-129) 10/01/16 05:15 Total Protein 6.8 g/dL (6.3-8.2) 10/01/16 05:15 Albumin 2.6 g/dL (3.9-5) L 10/01/16 05:15 Albumin/Globulin Ratio 0.6 % 10/01/16 05:15 Urine Color Yellow (Yellow) 10/02/16 11:31 Urine Turbidity Turbid (Clear) 10/02/16 11:31 Urine pH 6.0 (5.0-7.0) 10/02/16 11:31 Ur Specific [place] 1.018 (1.003-1.030) 10/02/16 11:31 Urine Protein 100 mg/dl mg/dL (Negative) 10/02/16 11:31 Urine Glucose (UA) Neg mg/dL (Negative) 10/02/16 11:31 Urine Ketones Neg mg/dL (Negative) 10/02/16 11:31 Urine Blood Mod (Negative) 10/02/16 11:31 Urine Nitrite Neg (Negative) 10/02/16 11:31 Urine Bilirubin Neg (Negative) 10/02/16 11:31 Urine Urobilinogen < 2.0 mg/dL (<2.0) 10/02/16 11:31 Ur Leukocyte Esterase Lg (Negative) 10/02/16 11:31 Urine WBC (Auto) > 182.0 /HPF (0.0-6.0) H 10/02/16 11:31 Urine RBC (Auto) 68.0 /HPF (0.0-6.0) 10/02/16 11:31 U Epithel Cells (Auto) 3.0 /HPF (0-13.0) 10/02/16 11:31 Urine Bacteria (Auto) 3+ /HPF (Negative) 10/02/16 11:31 Blood Type O POSITIVE 10/07/16 14:20 Antibody Screen TNR 10/07/16 14:20 SHAHEED Antibody Screen Negative 10/07/16 14:20 Crossmatch See Detail 10/07/16 14:20
[2016-10-18] MEDS: HEPARIN SUB-Q SCH ×2 (10:12→22:29)
--- NOTE | 2016-10-18 16:11 | Progress Note ---
Assessment and Plan Assessment: * End stage renal disease * Status post hyperglycemic hyperosmolar nonketotic coma * Status post hypoxemic respiratory failure * Catheter associated bacteremia --Blood cx 09/05: coag negative staph * Permcath w/ mobile vegetation --PermCath was exchanged on 09/29/2016 * Thoracic spinal cord infarction * Seizure * Anemia secondary to ESRD --Heme occult negative * Hx of enterococcal UTI (cx 09/08) Plan: * Continue MWF schedule - UF as tolerated * BP improved (previously in 80s) w/ decreasing Nifedipine dose; continue current medications * Dose medications for renal function * Epogen with dialysis * AM labs ordered Subjective Date of service: 10/18/16 Principal diagnosis: thoracic cord infarction Objective - Vital Signs Vital signs: Vital Signs - 12hr 10/18/16 10/18/16 07:34 13:33 Temperature 97.8 F Pulse Rate [ 84 84 Left Brachial] Respiratory 18 Rate Blood Pressure 110/60 [Left Arm] O2 Sat by Pulse 97 97 Oximetry - General Appearance General appearance: well-developed, well-nourished EENT: ATNC Respiratory: Present: Clear to Ascultation Cardiology: regular, S1S2 Gastrointestinal: normal, no tenderness, no distended Integumentary: no rash Neurologic: alert and oriented x3 Musculoskeletal: other (no edema) Psychiatric: cooperative - Lab 10/18/16 06:09 10/18/16 06:09 Most recent lab results Calcium 9.0 mg/dL (8.4-10.2) 10/18/16 06:09
[2016-10-18] MEDS: ZOCOR PO SCH (22:25)
[2016-10-18] MEDS: TRANSDERM-SCOP TD SCH (22:26)
[2016-10-18] MEDS: SENOKOT PO SCH (22:26)
[2016-10-19 08:02] LABS: Hematocrit 30.6 % (30.3-42.9); Hemoglobin 9.4 gm/dl (10.1-14.3); Mean Corpuscular HGB Conc 31 % (30-34); Mean Corpuscular Hemoglobin 27 pg (28-32); Mean Corpuscular Volume 87 fl (79-97); Platelet Count 326 K/mm3 (140-440); Red Blood Count 3.51 M/mm3 (3.65-5.03); Red Cell Distribution Width 18.4 % (13.2-15.2); White Blood Count 12.6 K/mm3 (4.5-11.0)
[2016-10-19] MEDS: ZESTRIL PO SCH (08:02)
[2016-10-19] MEDS: PROCARDIA XL PO SCH (08:04)
--- NOTE | 2016-10-19 08:10 | Progress Note ---
Assessment and Plan Labs; reviewed Interdisciplinary notes of past 24 hours reviewed Social history: Reviewed Family history: Reviewed Allergies: Reviewed Physical examination Vitals reviewed HEENT:Mild pallor no icterus Neck: Supple no thyromegaly or nodular mass Chest: Clear to auscultation Heart:Regular rate rhythm S1-S2 heard Abdomen: Soft nontender no voluntary guarding rigidity rebound Extremities minimal edema dry skin Neurological alert awake oriented Dermatology dry skin Assessment and plan End-stage renal disease patient is currently on maintenance hemodialysis on Wednesday and Wednesday Hypotension; needs close monitoring and adjustment of blood pressure medication Blood pressure has currently stabilized heart rate is stable Anemia and end-stage renal disease currently on erythropoietin 20,000 units with dialysis Patient is currently on spiral lactone, nifedipine, lisinopril and when necessary hydralazine Secondary hyperparathyroidism to monitor phosphorus and PTH level periodically Malnutrition risk is high in dialysis patient please consider high-protein diet We'll continue to follow and make recommendations from renal standpoint Subjective Principal diagnosis: thoracic cord infarction Interval history: seen for follow-up currently on dialysis Wednesday evening until this hospitalization noted Objective - Vital Signs Vital signs: Vital Signs - 12hr 10/18/16 10/19/16 20:34 08:02 Pulse Rate 84 Respiratory 18 Rate Blood Pressure 141/76 - Lab 10/19/16 07:21 10/19/16 07:21 Most recent lab results Calcium 9.0 mg/dL (8.4-10.2) 10/18/16 06:09
[2016-10-19] MEDS: KEPPRA PO SCH ×2 (08:46→21:56)
[2016-10-19] MEDS: ASPIRIN PO SCH (08:46)
[2016-10-19] MEDS: PEPCID PO SCH (08:47)
[2016-10-19] MEDS: LEVEMIR SUB-Q SCH ×2 (08:50→18:20)
[2016-10-19] MEDS: NYSTOP TP SCH ×2 (08:57→21:58)
[2016-10-19] MEDS: THERMAZENE 50 GRAM TP SCH ×2 (08:57→21:58)
[2016-10-19] MEDS: ALDACTONE PO SCH (08:58)
[2016-10-19] MEDS: NOVOLOG SUB-Q SCH ×7 (08:58→21:57)
[2016-10-19] MEDS: HEPARIN SUB-Q SCH ×2 (09:09→21:55)
[2016-10-19] MEDS: ULTRAM PO PRN ×2 (09:09→19:38)
[2016-10-19 09:12] LABS: BUN/Creatinine Ratio 5.07; Calcium 8.9 mg/dL (8.4-10.2); Chloride 98.1 mmol/L (98-107); Potassium 4.3 mmol/L (3.6-5.0)
--- NOTE | 2016-10-19 09:12 | Progress Note ---
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 Medicine consulted for management of hypotension and presumed sepsis. Severe sepsis with hypotension, septic shock: BP improved with IVF resuscitation and prbc. Most recent blood pressure is 110/60 Continue sepsis pathway, she does have Gardnerella vaginalis UTI, completed metronidazole 7 days on 10/14 chest x-ray was negative for pneumonia on 10/07, reviewed blood cultures from 10/06 and 10/07, NGTD Also notes there was a vegetation seen on permacath which was exchanged on however blood cultures from that time were negative Blood cx were negative only identified source is the UTI, completed 7 day course of flagyl, all other abx DC per Dr Ogden, ID Physician. Hypotension due to sepsis, now resolved. Most recent blood pressure 110/60. Yesterday had episode of hypotension now resolved Accelerated HTN. Will adjust oral meds to control BP (Will not give clonidine again, as she is at risk for hypotension and rebound htn). BP now stable, 121/ 63. DM type 2- insulin dependent. This is improving. Continue basal, bolus and SSI ESRD, on hemodialysis. Nephrology managing. Anemia of Chronic disease. status post PRBC transfusion. Hemoglobin 9.4 today again. Depression, improving DVT prophylaxis with Heparin subcut Full code status History Interval history: Still bilateral lower ext weakness, no vomiting no chest pain no new complaints Hospitalist Physical - Physical exam Narrative exam: Appearance: Not in acute distress, obese HEENT: normocephalic, atraumatic Neck : supple, no JVD Lungs: Clear to auscultation bilaterally, no crackles or wheeze Heart : S1 and S2 regular, no murmurs, rubs or gallop Abdomen: soft, non-tender, non-distended, normal bowel sounds Extremities: No edema, no clubbing or cyanosis Neuro: Awake alert oriented 3, flaccid paralysis both lower ext, loss of sensation both lower ext Psych: Depressed - Constitutional Vitals: Temp Pulse Resp BP Pulse Ox 98.5 F 84 20 141/76 99 10/19/16 08:00 10/19/16 08:02 10/19/16 08:00 10/19/16 08:02 10/19/16 08:00 General appearance: Present: no acute distress, obese Results - Labs CBC & Chem 7: 10/19/16 07:21 10/19/16 07:21 Labs: Laboratory Last Values WBC 12.6 K/mm3 (4.5-11.0) H 10/19/16 07:21 RBC 3.51 M/mm3 (3.65-5.03) L 10/19/16 07:21 Hgb 9.4 gm/dl (10.1-14.3) L 10/19/16 07:21 Hct 30.6 % (30.3-42.9) 10/19/16 07:21 MCV 87 fl (79-97) 10/19/16 07:21 MCH 27 pg (28-32) L 10/19/16 07:21 MCHC 31 % (30-34) 10/19/16 07:21 RDW 18.4 % (13.2-15.2) H 10/19/16 07:21 Plt Count 326 K/mm3 (140-440) 10/19/16 07:21 Lymph % (Auto) 20.6 % (13.4-35.0) 10/18/16 06:09 [place] % (Auto) 9.0 % (0.0-7.3) H 10/18/16 06:09 Eos % (Auto) 7.1 % (0.0-4.3) H 10/18/16 06:09 Baso % (Auto) 1.6 % (0.0-1.8) 10/18/16 06:09 Lymph # 2.4 K/mm3 (1.2-5.4) 10/18/16 06:09 [place] # 1.0 K/mm3 (0.0-0.8) H 10/18/16 06:09 Eos # 0.8 K/mm3 (0.0-0.4) H 10/18/16 06:09 Baso # 0.2 K/mm3 (0.0-0.1) H 10/18/16 06:09 Add Manual Diff Complete 10/14/16 15:18 Total Counted 100 10/14/16 15:18 Seg Neutrophils % 61.7 % (40.0-70.0) 10/18/16 06:09 Seg Neuts % (Manual) 60.0 % (40.0-70.0) 10/14/16 15:18 Band Neutrophils % 1.0 % 10/14/16 15:18 Lymphocytes % (Manual) 16.0 % (13.4-35.0) 10/14/16 15:18 Reactive Lymphs % (Man) 0 % 10/14/16 15:18 Monocytes % (Manual) 8.0 % (0.0-7.3) H 10/14/16 15:18 Eosinophils % (Manual) 13.0 % (0.0-4.3) H 10/14/16 15:18 Basophils % (Manual) 0 % (0.0-1.8) 10/14/16 15:18 Metamyelocytes % 1.0 % 10/14/16 15:18 Myelocytes % 1.0 % 10/14/16 15:18 Promyelocytes % 0 % 10/14/16 15:18 Blast Cells % 0 % 10/14/16 15:18 Nucleated RBC % 2.0 % (0.0-0.9) H 10/14/16 15:18 Seg Neutrophils # 7.1 K/mm3 (1.8-7.7) 10/18/16 06:09 Seg Neutrophils # Man 8.0 K/mm3 (1.8-7.7) H 10/14/16 15:18 Band Neutrophils # 0.1 K/mm3 10/14/16 15:18 Lymphocytes # (Manual) 2.1 K/mm3 (1.2-5.4) 10/14/16 15:18 Abs React Lymphs (Man) 0.0 K/mm3 10/14/16 15:18 Monocytes # (Manual) 1.1 K/mm3 (0.0-0.8) H 10/14/16 15:18 Eosinophils # (Manual) 1.7 K/mm3 (0.0-0.4) H 10/14/16 15:18 Basophils # (Manual) 0.0 K/mm3 (0.0-0.1) 10/14/16 15:18 Metamyelocytes # 0.1 K/mm3 10/14/16 15:18 Myelocytes # 0.1 K/mm3 10/14/16 15:18 Promyelocytes # 0.0 K/mm3 10/14/16 15:18 Blast Cells # 0.0 K/mm3 10/14/16 15:18 WBC Morphology Not Reportable 10/14/16 15:18 Hypersegmented Neuts Not Reportable 10/14/16 15:18 Hyposegmented Neuts Not Reportable 10/14/16 15:18 Hypogranular Neuts Not Reportable 10/14/16 15:18 Smudge Cells Not Reportable 10/14/16 15:18 Toxic Granulation Not Reportable 10/14/16 15:18 Toxic Vacuolation Not Reportable 10/14/16 15:18 Dohle Bodies Not Reportable 10/14/16 15:18 Pelger-Huet Anomaly Not Reportable 10/14/16 15:18 Tiffanie Rods Not Reportable 10/14/16 15:18 Platelet Estimate Consistent w auto 10/14/16 15:18 Clumped Platelets Not Reportable 10/14/16 15:18 Plt Clumps, EDTA Not Reportable 10/14/16 15:18 Large Platelets 1+ 10/14/16 15:18 Giant Platelets Not Reportable 10/14/16 15:18 Platelet Satelliting Not Reportable 10/14/16 15:18 Plt Morphology Comment Not Reportable 10/14/16 15:18 RBC Morphology Not Reportable 10/14/16 15:18 Dimorphic RBCs Not Reportable 10/14/16 15:18 Polychromasia Not Reportable 10/14/16 15:18 Hypochromasia Not Reportable 10/14/16 15:18 Poikilocytosis 1+ 10/14/16 15:18 Anisocytosis 1+ 10/14/16 15:18 Microcytosis Not Reportable 10/14/16 15:18 Macrocytosis Not Reportable 10/14/16 15:18 Spherocytes Not Reportable 10/14/16 15:18 Pappenheimer Bodies Not Reportable 10/14/16 15:18 Sickle Cells Not Reportable 10/14/16 15:18 Target Cells Not Reportable 10/14/16 15:18 Tear Drop Cells Not Reportable 10/14/16 15:18 Ovalocytes Not Reportable 10/14/16 15:18 Helmet Cells Not Reportable 10/14/16 15:18 [place] Bodies Not Reportable 10/14/16 15:18 [place] Rings Not Reportable 10/14/16 15:18 Damon Cells Not Reportable 10/14/16 15:18 Bite Cells Not Reportable 10/14/16 15:18 Crenated Cell Not Reportable 10/14/16 15:18 Elliptocytes Not Reportable 10/14/16 15:18 Acanthocytes (Spur) Not Reportable 10/14/16 15:18 Rouleaux Not Reportable 10/14/16 15:18 Hemoglobin C Crystals Not Reportable 10/14/16 15:18 Schistocytes Not Reportable 10/14/16 15:18 Malaria parasites Not Reportable 10/14/16 15:18 Angel Bodies Not Reportable 10/14/16 15:18 Hem Pathologist Commnt No 10/14/16 15:18 Sodium 140 mmol/L (137-145) 10/18/16 06:09 Potassium 4.2 mmol/L (3.6-5.0) 10/18/16 06:09 Chloride 98.0 mmol/L (98-107) 10/18/16 06:09 Carbon Dioxide 26 mmol/L (22-30) 10/18/16 06:09 Anion Gap 20 mmol/L 10/18/16 06:09 BUN 25 mg/dL (7-17) H 10/18/16 06:09 Creatinine 5.6 mg/dL (0.7-1.2) H D 10/18/16 06:09 Estimated GFR 10 ml/min 10/18/16 06:09 BUN/Creatinine Ratio 4.46 % 10/18/16 06:09 Glucose 126 mg/dL (65-100) H 10/18/16 06:09 POC Glucose 204 (70-105) H 10/19/16 06:29 Calcium 9.0 mg/dL (8.4-10.2) 10/18/16 06:09 Total Bilirubin < 0.20 mg/dL (0.1-1.2) 10/01/16 05:15 AST 12 units/L (5-40) 10/01/16 05:15 ALT < 5 units/L (7-56) L 10/01/16 05:15 Alkaline Phosphatase 110 units/L (35-129) 10/01/16 05:15 Total Protein 6.8 g/dL (6.3-8.2) 10/01/16 05:15 Albumin 2.6 g/dL (3.9-5) L 10/01/16 05:15 Albumin/Globulin Ratio 0.6 % 10/01/16 05:15 Urine Color Yellow (Yellow) 10/02/16 11:31 Urine Turbidity Turbid (Clear) 10/02/16 11:31 Urine pH 6.0 (5.0-7.0) 10/02/16 11:31 Ur Specific [place] 1.018 (1.003-1.030) 10/02/16 11:31 Urine Protein 100 mg/dl mg/dL (Negative) 10/02/16 11:31 Urine Glucose (UA) Neg mg/dL (Negative) 10/02/16 11:31 Urine Ketones Neg mg/dL (Negative) 10/02/16 11:31 Urine Blood Mod (Negative) 10/02/16 11:31 Urine Nitrite Neg (Negative) 10/02/16 11:31 Urine Bilirubin Neg (Negative) 10/02/16 11:31 Urine Urobilinogen < 2.0 mg/dL (<2.0) 10/02/16 11:31 Ur Leukocyte Esterase Lg (Negative) 10/02/16 11:31 Urine WBC (Auto) > 182.0 /HPF (0.0-6.0) H 10/02/16 11:31 Urine RBC (Auto) 68.0 /HPF (0.0-6.0) 10/02/16 11:31 U Epithel Cells (Auto) 3.0 /HPF (0-13.0) 10/02/16 11:31 Urine Bacteria (Auto) 3+ /HPF (Negative) 10/02/16 11:31 Blood Type O POSITIVE 10/07/16 14:20 Antibody Screen TNR 10/07/16 14:20 SHAHEED Antibody Screen Negative 10/07/16 14:20 Crossmatch See Detail 10/07/16 14:20
--- NOTE | 2016-10-19 13:26 | Progress Note ---
Assessment and Plan 36 y.o. female s/p intractable status epilepticus on presentation; s/p acute respiratory failure requiring intubation, acute metabolic encephalopathy, GN bacteremia, +E.Faecalis in urine, hypokalemia, left arm cellulitis. Pt later noted to have acute CVA at anterior corpus callosum and left parietal periventricular white matter, subacute bilateral parietal lobe infarcts, and acute onset of BLE numbness and paralysis thought to be secondary to thoracic cord infarction from hypotension; also with mobile vegetation on permacath wire in right atrium; permacath replaced/resolved on 09/29 - thoracic cord infarction- bowel/bladder management; last BM on this AM; minimal bladder readings on bladder scan - continue daily wound care - acute CVA at anterior corpus callosum and left parietal periventricular white matter; subacute bilateral parietal lobe infarcts- ASA, statin - seizure disorder- keppra; seizure precautions - HTN- fluctuating BP over weekend; intermittent symptomatic hypotension - DM- BS stable - ESRD- on HD, MWF; Nephrology following - DVT px- heparin - Patient Problems (1) Spinal cord infarction Current Visit: No Status: Acute (2) CVA (cerebral vascular accident) Current Visit: Yes Status: Acute Qualifiers: CVA mechanism: other Precerebral and cerebral artery: P Laterality of affected vessel: L Qualified Code(s): I63.8 - Other cerebral infarction (3) Seizure Current Visit: No Status: Acute (4) Diabetes Current Visit: Yes Status: Chronic Qualifiers: Diabetes mellitus type: type 2 Diabetes mellitus complication status: with hyperglycemia Diabetes mellitus complication detail: D Diabetic retinopathy severity: D Proliferative retinopathy type: P Diabetes mellitus macular edema: D Diabetes mellitus fci insulin use: with dish carrier use Laterality: L Chronic kidney disease stage: C Qualified Code(s): E11.65 - Type 2 diabetes mellitus with hyperglycemia; Z79.4 - FDC (current) use of insulin (5) HTN (hypertension) Current Visit: Yes Status: Acute Qualifiers: Hypertension type: essential hypertension Qualified Code(s): I10 - Essential (primary) hypertension (6) ESRD on hemodialysis Current Visit: Yes Status: Chronic Subjective Date of service: 10/19/16 Principal diagnosis: thoracic cord infarction Interval history: Pt seen this AM in PT gym, F/U IPR course, s/p thoracic cord infarction and acute CVAs. Noted episode of hypotension on yesterday, dizziness reported at time of episode; now resolved. Given tramadol this AM for back pain Objective - Constitutional Vitals: Vital Signs - 12hr 10/19/16 10/19/16 10/19/16 08:00 08:02 10:00 Temperature 98.5 F Pulse Rate 84 Pulse Rate [ 84 84 Left Brachial] Respiratory 20 Rate Blood Pressure 141/76 Blood Pressure 141/76 [Right Arm] O2 Sat by Pulse 99 99 Oximetry General appearance: Present: no acute distress, obese - EENT Eyes: EOM intact ENT: hearing intact - Neck Neck: supple, normal ROM - Respiratory Respiratory effort: normal Respiratory: bilateral: CTA - Cardiovascular Rhythm: regular Heart Sounds: Present: S1 & S2 Extremities: No edema (DILCIA hose in place; no tone/spasticity noted with PROM of BLE) Extremity abnormal: other - Gastrointestinal General gastrointestinal: Present: soft, non-tender, normal bowel sounds - Neurologic Neurologic: CNII-XII intact - Psychiatric Psychiatric: cooperative (flat affect) - Allied health notes Allied health notes reviewed: PT (totalA for sliding board transfers), OT (maxA x2 for LB dressing and transfers) - Labs CBC & Chem 7: 10/19/16 07:21 10/19/16 07:21 Labs: Abnormal lab results 10/18/16 10/18/16 10/19/16 Range/Units 16:51 21:19 06:29 WBC (4.5-11.0) K/mm3 RBC (3.65-5.03) M/mm3 Hgb (10.1-14.3) gm/dl MCH (28-32) pg RDW (13.2-15.2) % BUN (7-17) mg/dL Creatinine (0.7-1.2) mg/dL Glucose (65-100) mg/dL POC Glucose 268 H 248 H 204 H (70-105) 10/19/16 10/19/16 10/19/16 Range/Units 07:21 07:21 11:45 WBC 12.6 H (4.5-11.0) K/mm3 RBC 3.51 L (3.65-5.03) M/mm3 Hgb 9.4 L (10.1-14.3) gm/dl MCH 27 L (28-32) pg RDW 18.4 H (13.2-15.2) % BUN 36 H (7-17) mg/dL Creatinine 7.1 H (0.7-1.2) mg/dL Glucose 202 H (65-100) mg/dL POC Glucose 173 H (70-105)
[2016-10-19] MEDS ORDERED: NACL 0.9 (PRIMING MACHINE ONLY DIALYSIS) MC ONE (16:44)
[2016-10-19] MEDS: SENOKOT PO SCH (21:56)
[2016-10-19] MEDS: ZOCOR PO SCH (21:56)
[2016-10-20] MEDS: ZESTRIL PO SCH (08:32)
[2016-10-20] MEDS: KEPPRA PO SCH (08:33)
[2016-10-20] MEDS: ASPIRIN PO SCH (08:33)
[2016-10-20] MEDS: ALDACTONE PO SCH (08:35)
[2016-10-20] MEDS: PEPCID PO SCH (08:35)
[2016-10-20] MEDS: PROCARDIA XL PO SCH (08:35)
[2016-10-20] MEDS: NOVOLOG SUB-Q SCH ×6 (08:37→17:15)
[2016-10-20] MEDS: LEVEMIR SUB-Q SCH ×2 (08:41→17:15)
[2016-10-20] MEDS: HEPARIN SUB-Q SCH ×2 (08:42→10:00)
[2016-10-20] MEDS: NYSTOP TP SCH (08:43)
[2016-10-20] MEDS: THERMAZENE 50 GRAM TP SCH (08:43)
--- NOTE | 2016-10-20 09:02 | Progress Note ---
Assessment and Plan Labs; reviewed Interdisciplinary notes of past 24 hours reviewed Social history: Reviewed Family history: Reviewed Allergies: Reviewed Physical examination Vitals reviewed HEENT:Mild pallor no icterus Neck: Supple no thyromegaly or nodular mass Chest: Clear to auscultation Heart:Regular rate rhythm S1-S2 heard Abdomen: Soft nontender no voluntary guarding rigidity rebound Extremities minimal edema dry skin Neurological alert awake oriented Dermatology dry skin Assessment and plan End-stage renal disease patient is currently on maintenance hemodialysis on Wednesday and Wednesday, current axis is a permacath Hypotension; needs close monitoring and adjustment of blood pressure medication, appears to be doing better at this time Blood pressure has currently stabilized heart rate is stable Anemia and end-stage renal disease currently on erythropoietin 20,000 units with dialysis Patient is currently on spiral lactone, nifedipine, lisinopril and when necessary hydralazine Secondary hyperparathyroidism to monitor phosphorus and PTH level periodically Malnutrition risk is high in dialysis patient please consider high-protein diet We'll continue to follow and make recommendations from renal standpoint Subjective Principal diagnosis: thoracic cord infarction Interval history: Patient was seen today for follow-up on multiple renal related issues Events of 24 hours were noted, she tolerated her hemodialysis treatment well no acute complaint Interdisciplinary notes were also reviewed Objective - Vital Signs Vital signs: Vital Signs - 12hr 10/19/16 10/20/16 10/20/16 22:00 08:00 08:32 Temperature 97.9 F Pulse Rate 79 Pulse Rate [ 79 Left Brachial] Respiratory 20 Rate Blood Pressure 123/73 Blood Pressure 123/73 [Right Arm] O2 Sat by Pulse 97 99 Oximetry 10/20/16 08:35 Temperature Pulse Rate 79 Pulse Rate [ Left Brachial] Respiratory Rate Blood Pressure 123/73 Blood Pressure [Right Arm] O2 Sat by Pulse Oximetry - Lab 10/19/16 07:21 10/19/16 07:21 Most recent lab results Calcium 8.9 mg/dL (8.4-10.2) 10/19/16 07:21
--- NOTE | 2016-10-20 14:32 | Progress Note ---
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 Medicine consulted for management of hypotension and presumed sepsis. Severe sepsis with hypotension, septic shock: BP now stable. She does have Gardnerella vaginalis UTI, completed metronidazole 7 days on 10/14 chest x-ray was negative for pneumonia on 10/07, reviewed blood cultures from 10/06 and 10/07, NGTD Also notes there was a vegetation seen on permacath which was exchanged on however blood cultures from that time were negative Blood cx were negative only identified source is the UTI, completed 7 day course of flagyl, all other abx DC per Dr Ogden, ID Physician. Hypotension due to sepsis, now resolved. Yesterday had episode of hypotension now resolved Accelerated HTN. Will adjust oral meds to control BP (Will not give clonidine again, as she is at risk for hypotension and rebound htn). BP now stable, 121/ 63. DM type 2- insulin dependent. This is improving. Continue basal, bolus and SSI ESRD, on hemodialysis. Nephrology managing. Anemia of Chronic disease. status post PRBC transfusion. Hemoglobin 9.4 today again. Depression, improving DVT prophylaxis with Heparin subcutanous Full code status History Interval history: Still bilateral lower ext weakness, no chest pain no new complaints Hospitalist Physical - Physical exam Narrative exam: Appearance: Not in acute distress, obese HEENT: normocephalic, atraumatic Neck : supple, no JVD Lungs: Clear to auscultation bilaterally, no crackles or wheeze Heart : S1 and S2 regular, no murmurs, rubs or gallop Abdomen: soft, non-tender, non-distended, normal bowel sounds Extremities: No edema, no clubbing or cyanosis Neuro: Awake alert oriented 3, flaccid paralysis both lower ext, loss of sensation both lower ext Psych: Depressed - Constitutional Vitals: Temp Pulse Resp BP Pulse Ox 97.9 F 79 20 123/73 99 10/20/16 08:00 10/20/16 08:35 10/20/16 08:00 10/20/16 08:35 10/20/16 08:00 General appearance: Present: no acute distress, obese Results - Labs CBC & Chem 7: 10/19/16 07:21 10/19/16 07:21 Labs: Laboratory Last Values WBC 12.6 K/mm3 (4.5-11.0) H 10/19/16 07:21 RBC 3.51 M/mm3 (3.65-5.03) L 10/19/16 07:21 Hgb 9.4 gm/dl (10.1-14.3) L 10/19/16 07:21 Hct 30.6 % (30.3-42.9) 10/19/16 07:21 MCV 87 fl (79-97) 10/19/16 07:21 MCH 27 pg (28-32) L 10/19/16 07:21 MCHC 31 % (30-34) 10/19/16 07:21 RDW 18.4 % (13.2-15.2) H 10/19/16 07:21 Plt Count 326 K/mm3 (140-440) 10/19/16 07:21 Lymph % (Auto) 20.6 % (13.4-35.0) 10/18/16 06:09 [place] % (Auto) 9.0 % (0.0-7.3) H 10/18/16 06:09 Eos % (Auto) 7.1 % (0.0-4.3) H 10/18/16 06:09 Baso % (Auto) 1.6 % (0.0-1.8) 10/18/16 06:09 Lymph # 2.4 K/mm3 (1.2-5.4) 10/18/16 06:09 [place] # 1.0 K/mm3 (0.0-0.8) H 10/18/16 06:09 Eos # 0.8 K/mm3 (0.0-0.4) H 10/18/16 06:09 Baso # 0.2 K/mm3 (0.0-0.1) H 10/18/16 06:09 Add Manual Diff Complete 10/14/16 15:18 Total Counted 100 10/14/16 15:18 Seg Neutrophils % 61.7 % (40.0-70.0) 10/18/16 06:09 Seg Neuts % (Manual) 60.0 % (40.0-70.0) 10/14/16 15:18 Band Neutrophils % 1.0 % 10/14/16 15:18 Lymphocytes % (Manual) 16.0 % (13.4-35.0) 10/14/16 15:18 Reactive Lymphs % (Man) 0 % 10/14/16 15:18 Monocytes % (Manual) 8.0 % (0.0-7.3) H 10/14/16 15:18 Eosinophils % (Manual) 13.0 % (0.0-4.3) H 10/14/16 15:18 Basophils % (Manual) 0 % (0.0-1.8) 10/14/16 15:18 Metamyelocytes % 1.0 % 10/14/16 15:18 Myelocytes % 1.0 % 10/14/16 15:18 Promyelocytes % 0 % 10/14/16 15:18 Blast Cells % 0 % 10/14/16 15:18 Nucleated RBC % 2.0 % (0.0-0.9) H 10/14/16 15:18 Seg Neutrophils # 7.1 K/mm3 (1.8-7.7) 10/18/16 06:09 Seg Neutrophils # Man 8.0 K/mm3 (1.8-7.7) H 10/14/16 15:18 Band Neutrophils # 0.1 K/mm3 10/14/16 15:18 Lymphocytes # (Manual) 2.1 K/mm3 (1.2-5.4) 10/14/16 15:18 Abs React Lymphs (Man) 0.0 K/mm3 10/14/16 15:18 Monocytes # (Manual) 1.1 K/mm3 (0.0-0.8) H 10/14/16 15:18 Eosinophils # (Manual) 1.7 K/mm3 (0.0-0.4) H 10/14/16 15:18 Basophils # (Manual) 0.0 K/mm3 (0.0-0.1) 10/14/16 15:18 Metamyelocytes # 0.1 K/mm3 10/14/16 15:18 Myelocytes # 0.1 K/mm3 10/14/16 15:18 Promyelocytes # 0.0 K/mm3 10/14/16 15:18 Blast Cells # 0.0 K/mm3 10/14/16 15:18 WBC Morphology Not Reportable 10/14/16 15:18 Hypersegmented Neuts Not Reportable 10/14/16 15:18 Hyposegmented Neuts Not Reportable 10/14/16 15:18 Hypogranular Neuts Not Reportable 10/14/16 15:18 Smudge Cells Not Reportable 10/14/16 15:18 Toxic Granulation Not Reportable 10/14/16 15:18 Toxic Vacuolation Not Reportable 10/14/16 15:18 Dohle Bodies Not Reportable 10/14/16 15:18 Pelger-Huet Anomaly Not Reportable 10/14/16 15:18 Tiffanie Rods Not Reportable 10/14/16 15:18 Platelet Estimate Consistent w auto 10/14/16 15:18 Clumped Platelets Not Reportable 10/14/16 15:18 Plt Clumps, EDTA Not Reportable 10/14/16 15:18 Large Platelets 1+ 10/14/16 15:18 Giant Platelets Not Reportable 10/14/16 15:18 Platelet Satelliting Not Reportable 10/14/16 15:18 Plt Morphology Comment Not Reportable 10/14/16 15:18 RBC Morphology Not Reportable 10/14/16 15:18 Dimorphic RBCs Not Reportable 10/14/16 15:18 Polychromasia Not Reportable 10/14/16 15:18 Hypochromasia Not Reportable 10/14/16 15:18 Poikilocytosis 1+ 10/14/16 15:18 Anisocytosis 1+ 10/14/16 15:18 Microcytosis Not Reportable 10/14/16 15:18 Macrocytosis Not Reportable 10/14/16 15:18 Spherocytes Not Reportable 10/14/16 15:18 Pappenheimer Bodies Not Reportable 10/14/16 15:18 Sickle Cells Not Reportable 10/14/16 15:18 Target Cells Not Reportable 10/14/16 15:18 Tear Drop Cells Not Reportable 10/14/16 15:18 Ovalocytes Not Reportable 10/14/16 15:18 Helmet Cells Not Reportable 10/14/16 15:18 [place] Bodies Not Reportable 10/14/16 15:18 [place] Rings Not Reportable 10/14/16 15:18 [place] Cells Not Reportable 10/14/16 15:18 Bite Cells Not Reportable 10/14/16 15:18 Crenated Cell Not Reportable 10/14/16 15:18 Elliptocytes Not Reportable 10/14/16 15:18 Acanthocytes (Spur) Not Reportable 10/14/16 15:18 Rouleaux Not Reportable 10/14/16 15:18 Hemoglobin C Crystals Not Reportable 10/14/16 15:18 Schistocytes Not Reportable 10/14/16 15:18 Malaria parasites Not Reportable 10/14/16 15:18 Angel Bodies Not Reportable 10/14/16 15:18 Hem Pathologist Commnt No 10/14/16 15:18 Sodium 140 mmol/L (137-145) 10/19/16 07:21 Potassium 4.3 mmol/L (3.6-5.0) 10/19/16 07:21 Chloride 98.1 mmol/L (98-107) 10/19/16 07:21 Carbon Dioxide 22 mmol/L (22-30) 10/19/16 07:21 Anion Gap 24 mmol/L 10/19/16 07:21 BUN 36 mg/dL (7-17) H 10/19/16 07:21 Creatinine 7.1 mg/dL (0.7-1.2) H 10/19/16 07:21 Estimated GFR 8 ml/min 10/19/16 07:21 BUN/Creatinine Ratio 5.07 % 10/19/16 07:21 Glucose 202 mg/dL (65-100) H 10/19/16 07:21 POC Glucose 121 (70-105) H 10/20/16 12:12 Calcium 8.9 mg/dL (8.4-10.2) 10/19/16 07:21 Total Bilirubin < 0.20 mg/dL (0.1-1.2) 10/01/16 05:15 AST 12 units/L (5-40) 10/01/16 05:15 ALT < 5 units/L (7-56) L 10/01/16 05:15 Alkaline Phosphatase 110 units/L (35-129) 10/01/16 05:15 Total Protein 6.8 g/dL (6.3-8.2) 10/01/16 05:15 Albumin 2.6 g/dL (3.9-5) L 10/01/16 05:15 Albumin/Globulin Ratio 0.6 % 10/01/16 05:15 Urine Color Yellow (Yellow) 10/02/16 11:31 Urine Turbidity Turbid (Clear) 10/02/16 11:31 Urine pH 6.0 (5.0-7.0) 10/02/16 11:31 Ur Specific [place] 1.018 (1.003-1.030) 10/02/16 11:31 Urine Protein 100 mg/dl mg/dL (Negative) 10/02/16 11:31 Urine Glucose (UA) Neg mg/dL (Negative) 10/02/16 11:31 Urine Ketones Neg mg/dL (Negative) 10/02/16 11:31 Urine Blood Mod (Negative) 10/02/16 11:31 Urine Nitrite Neg (Negative) 10/02/16 11:31 Urine Bilirubin Neg (Negative) 10/02/16 11:31 Urine Urobilinogen < 2.0 mg/dL (<2.0) 10/02/16 11:31 Ur Leukocyte Esterase Lg (Negative) 10/02/16 11:31 Urine WBC (Auto) > 182.0 /HPF (0.0-6.0) H 10/02/16 11:31 Urine RBC (Auto) 68.0 /HPF (0.0-6.0) 10/02/16 11:31 U Epithel Cells (Auto) 3.0 /HPF (0-13.0) 10/02/16 11:31 Urine Bacteria (Auto) 3+ /HPF (Negative) 10/02/16 11:31 Blood Type O POSITIVE 10/07/16 14:20 Antibody Screen TNR 10/07/16 14:20 SHAHEED Antibody Screen Negative 10/07/16 14:20 Crossmatch See Detail 10/07/16 14:20
--- NOTE | 2016-10-20 15:32 | Progress Note ---
Assessment and Plan 36 y.o. female s/p intractable status epilepticus on presentation; s/p acute respiratory failure requiring intubation, acute metabolic encephalopathy, GN bacteremia, +E.Faecalis in urine, hypokalemia, left arm cellulitis. Pt later noted to have acute CVA at anterior corpus callosum and left parietal periventricular white matter, subacute bilateral parietal lobe infarcts, and acute onset of BLE numbness and paralysis thought to be secondary to thoracic cord infarction from hypotension; also with mobile vegetation on permacath wire in right atrium; permacath replaced/resolved on 09/29 - thoracic cord infarction- B/B management; wound care; PT/OT - acute CVA at anterior corpus callosum and left parietal periventricular white matter; subacute bilateral parietal lobe infarcts- ASA, statin - seizure disorder- keppra; seizure precautions - HTN- continues with intermittent symptomatic hypotension; missed some therapy time on today due to hypotension - DM- BS remain stable - ESRD- on HD, MWF; Nephrology following - DVT px- heparin - team conference held on today- on admission, pt required Supervision for Eating and grooming; modA for UB Dressing; max-totalA for remaining ADLs. At 10/06 conference, pt noted to be s/u for eating, Ananya for grooming, modA for UB dressing; maxA for bathing, sliding board transfers, and bed mobility; totalA for LB dressing, toileting, toilet transfers; MaxA for sitting balance. At conference, pt at supervision for eating and grooming; SBA to min for wheelchair mobility; modA for UB dressing; maxA for bathing, sliding board transfers, and bed mobility; totalA for LB dressing, toileting, toilet transfers. On today, pt is Memo for eating; s/u for grooming and UB dressing; maxA fro bathing and bed mobility; totalA for LB dressing, toileting, transfers ; supervision for wheelchait mobility. Pt is with increased participation, however continues with significant functional deficits. SNF placement has been initiated and is pending. - Patient Problems (1) Spinal cord infarction Current Visit: No Status: Acute (2) CVA (cerebral vascular accident) Current Visit: Yes Status: Acute Qualifiers: CVA mechanism: other Precerebral and cerebral artery: P Laterality of affected vessel: L Qualified Code(s): I63.8 - Other cerebral infarction (3) Seizure Current Visit: No Status: Acute (4) Diabetes Current Visit: Yes Status: Chronic Qualifiers: Diabetes mellitus type: type 2 Diabetes mellitus complication status: with hyperglycemia Diabetes mellitus complication detail: D Diabetic retinopathy severity: D Proliferative retinopathy type: P Diabetes mellitus macular edema: D Diabetes mellitus terminal carman insulin use: with terminal carman use Laterality: L Chronic kidney disease stage: C Qualified Code(s): E11.65 - Type 2 diabetes mellitus with hyperglycemia; Z79.4 - buttermaker (current) use of insulin (5) HTN (hypertension) Current Visit: Yes Status: Acute Qualifiers: Hypertension type: essential hypertension Qualified Code(s): I10 - Essential (primary) hypertension (6) ESRD on hemodialysis Current Visit: Yes Status: Chronic Subjective Date of service: 10/20/16 Principal diagnosis: thoracic cord infarction Interval history: Pt seen this AM in PT gym, F/U IPR course, s/p thoracic cord infarction and acute CVAs. symptomatic hypotension with PT; placed back in bed; dizziness has now resolved. Participation has increased with therapies, however remains with significant functional deficits Objective - Constitutional Vitals: Vital Signs - 12hr 10/20/16 10/20/16 10/20/16 08:00 08:32 08:35 Temperature 97.9 F Pulse Rate 79 79 Pulse Rate [ 79 Left Brachial] Respiratory 20 Rate Blood Pressure 123/73 123/73 Blood Pressure 123/73 [Right Arm] O2 Sat by Pulse 99 Oximetry General appearance: Present: mild distress (hypotensive, dizzy) - EENT Eyes: EOM intact ENT: hearing intact - Neck Neck: supple - Respiratory Respiratory effort: normal Respiratory: bilateral: CTA - Cardiovascular Rhythm: regular Heart Sounds: Present: S1 & S2 Extremities: No edema - Gastrointestinal General gastrointestinal: Present: soft, non-tender, non-distended, normal bowel sounds - Neurologic Neurologic: CNII-XII intact, other (Bilateral LE weakness) - Psychiatric Psychiatric: cooperative - Labs CBC & Chem 7: 10/19/16 07:21 10/19/16 07:21 Labs: Abnormal lab results 10/19/16 10/19/16 10/20/16 Range/Units 18:05 21:06 06:58 POC Glucose 227 H 138 H 195 H (70-105) 10/20/16 Range/Units 12:12 POC Glucose 121 H (70-105)
[2016-10-20] MEDS: ULTRAM PO PRN (16:10)
[2016-10-20] MEDS ORDERED: NACL 0.9% 500 ML 500 ML IV SCH (18:00)
[2016-10-20] MEDS ORDERED: NACL 0.9% 1000 ML 1,000 ML ONE (18:33)
[2016-10-20 19:50] VITALS: BP 76/52
[2016-10-20] MEDS: TYLENOL PO PRN (20:15)
--- NOTE | 2016-10-20 20:20 | Event Note ---
Date: 10/20/16 I was notified by the nursing staff around 7 Pm the patient the patient is dropping down to 65/45 and I ordered 500ml of bolus and after she took 250ml they called me again the blood pressures is dropping down further and she was desaturating, i went to the room and the patient was alert and oriented and blood pressure was actually 85/50 saturation was 93 on 3 L of oxygen. I told the nurse to have close monitoring and finish the remaining of the fluid and do V/Q scan.
[2016-10-20] MEDS ORDERED: MILK OF MAGNESIA PO PRN (21:26)
[2016-10-20] MEDS ORDERED: DULCOLAX PR PRN (21:26)
[2016-10-20] MEDS ORDERED: ALUM-MAG HYDROX-SIMETH 200-200-20MG/5ML PO PRN (21:26)
--- NOTE | 2016-10-20 21:29 | Discharge Summary ---
Providers - Providers Date of Admission: 09/30/16 19:52 Date of discharge: 10/20/16 Attending physician: DIANA CASTRO 09/30/16 20:23 Consult to Physician [CONS] Routine Consulting Provider: AVELINO MEADE Reason For Exam: ESRD, HD MWF Place consult to:: renal Notified:: keven svc Phone number called:: [phone] Was contact made?: Yes If yes, spoke with:: connected to Time called:: 07:22 Occupational Therapy Evaluate and Treat [CONS] Routine Comment: Reason For Exam: thoracic cord infarction; acute CVA Physical Therapy Evaluation and Treat [CONS] Routine Comment: Reason For Exam: thoracic cord infarction; acute CVA Speech Therapy Evaluation and Treat [CONS] Routine Reason For Exam: acute CVA 09/30/16 20:32 Consult to Wound/ET Nurse [CONS] Routine Reason For Exam: sacral wound eval 10/06/16 14:35 Consult to Physician [CONS] Routine Consulting Provider: EMILY THACKER [facility] Reason For Exam: hypotension; altered mental status Place consult to:: DR BOJORQUEZ Notified:: YES Phone number called:: [phone] Was contact made?: Yes If yes, spoke with:: DR BOJORQUEZ Time called:: 15:10 Comment:: DR MARYELLEN SIDDIQUI, FOR CONSULT, DR CASTRO SPOKE WITH 10/09/16 11:31 Consult to Physician [CONS] Routine Consulting Provider: KAMALA RAINEY Reason For Exam: intermittent fevers Place consult to:: IKER BILLY Notified:: YES Phone number called:: [phone] Was contact made?: Yes If yes, spoke with:: DR IKER BILLY Time called:: 17:30 Comment:: SPOKE WITH DR IKER BILLY AWARE OF CONSULT PT WITH INTER.FEVER Primary care physician: BAG BUNDLER Hospitalization Disposition: STILL A PATIENT - Discharge Diagnoses (1) Spinal cord infarction Status: Acute (2) CVA (cerebral vascular accident) Status: Acute Qualifiers: CVA mechanism: other Precerebral and cerebral artery: P Laterality of affected vessel: L Qualified Code(s): I63.8 - Other cerebral infarction (3) Seizure Status: Acute (4) Diabetes Status: Chronic Qualifiers: Diabetes mellitus type: type 2 Diabetes mellitus complication status: with hyperglycemia Diabetes mellitus complication detail: D Diabetic retinopathy severity: D Proliferative retinopathy type: P Diabetes mellitus macular edema: D Diabetes mellitus rat exterminator insulin use: with rat exterminator use Laterality: L Chronic kidney disease stage: C Qualified Code(s): E11.65 - Type 2 diabetes mellitus with hyperglycemia; Z79.4 - senior care (current) use of insulin (5) HTN (hypertension) Status: Acute Qualifiers: Hypertension type: essential hypertension Qualified Code(s): I10 - Essential (primary) hypertension (6) ESRD on hemodialysis Status: Chronic Exam - Constitutional Vitals: Temp Pulse Resp BP Pulse Ox 97.9 F 97 H 20 76/52 91 10/20/16 08:00 10/20/16 19:49 10/20/16 08:00 10/20/16 19:49 10/20/16 19:49 Plan Follow up with: NEVAEH MOCK MD [Primary Care Provider] - 7 Days
[2016-10-20] MEDS ORDERED: NACL 0.9% 1000 ML 1,000 ML IV SCH (22:00)
[2016-10-20 22:52] LABS: ISTAT Base Excess -10; ISTAT HCO3 17.3; ISTAT PCO2 40.8 (35-45); ISTAT PH 7.236 (7.35-7.45); ISTAT PO2 252 (80-105); ISTAT SO2 100; ISTAT TCO2 19
[2016-10-20 23:53] LABS: Creatine Kinase MB 3.6 ng/mL (0.0-4.0)
[2016-10-21] MEDS ORDERED: LOVENOX SUB-Q SCH (08:00)
== END 2016-10-20 22:03 | disposition admitted as inpatient to this hospital (09) | DRG 91 ==
LOC: 3B 19:52
PROVIDERS: ADMIT Family Medicine; ATTEND Family Medicine
PROC: 5A1D60Z (ICD-10-PCS; principal; 2016-10-01)
PROC: 30233N1 Transfusion of Nonautologous Red Blood Cells into Peripheral Vein, Percutaneous Approach (ICD-10-PCS; 2016-10-01)
PROC: 4A033R1 Measurement of Arterial Saturation, Peripheral, Percutaneous Approach (ICD-10-PCS; 2016-10-20)
DX: G95.11 Acute infarction of spinal cord (embolic) (nonembolic) (principal); N18.6 End stage renal disease; A41.9 Sepsis, unspecified organism; R65.21 Severe sepsis with septic shock; G93.41 Metabolic encephalopathy; I12.0 Hypertensive chronic kidney disease with stage 5 chronic kidney disease or end stage renal disease; N39.0 Urinary tract infection, site not specified; E46 Unspecified protein-calorie malnutrition; G82.20 Paraplegia, unspecified; E11.22 Type 2 diabetes mellitus with diabetic chronic kidney disease; B95.2 Enterococcus as the cause of diseases classified elsewhere; K21.9 Gastro-esophageal reflux disease without esophagitis; E11.65 Type 2 diabetes mellitus with hyperglycemia; E88.09 Other disorders of plasma-protein metabolism, not elsewhere classified; D63.1 Anemia in chronic kidney disease; F32.9 Major depressive disorder, single episode, unspecified; G40.909 Epilepsy, unspecified, not intractable, without status epilepticus; E87.6 Hypokalemia; Z83.3 Family history of diabetes mellitus; Z82.49 Family history of ischemic heart disease and other diseases of the circulatory system; Z82.3 Family history of stroke; Z79.4 Long term (current) use of insulin; Z99.2 Dependence on renal dialysis; Z68.37 Body mass index [BMI] 37.0-37.9, adult
CPT/HCPCS: 36415; 36430; 70450; 71010; 80048; 80053; 81001; 82270; 82550; 82553; 82803; 82962; 85007; 85025; 85027; 86850; 86900; 86901; 86920; 87040; 87086; 87116; 93005; 93010; 94760; J0360; J0885; J1644; J1815; J1818; J1956; J2543; J3370; J7030; J7040; J7050; P9016; Q0162